=== PATIENT | male | born 1960 | race Hispanic/Latino ===

== ENCOUNTER 2017-05-13 03:03 | Inpatient (IN) | payer MEDICAID ==
[2017-05-13] MEDS ORDERED: Albuterol-Ipratrop 3 mg / 0.5 (3 ml) UD IH STA ×2 (03:41→04:31)
--- NOTE | 2017-05-13 03:45 | ED PDOC ---
Arrival/HPI - General Chief Complaint: Shortness Of Breath Time Seen by Provider: 05/13/17 03:04 Historian: Patient - History of Present Illness Narrative History of Present Illness (Text): 05/13/17 03:41 56 year old male, whose past medical history includes depression, CHF, COPD, CAD , pneumonia, and alcohol abuse, presents to the emergency department with complaints of worsening shortness of breath for the past couple of days. Patient admits to drinking alcohol. He states he has no money and is unable to take his medication in which he has many according to the patient. Patient denies any fever, chills, chest pain, nausea, vomiting, diarrhea, urinary symptoms, back pain, neck pain, headache, dizziness, or any other complaints. Time/Duration: Other (couple days ) Symptom Onset: Gradual Symptom Course: Unchanged Activities at Onset: Light Context: Home Past Medical History - Provider Review Nursing Documentation Reviewed: Yes - Infectious Disease Hx of Infectious Diseases: None - Cardiac Hx Congestive Heart Failure: Yes Hx Hypertension: Yes - Pulmonary Hx Chronic Obstructive Pulmonary Disease (COPD): Yes - Neurological Hx Seizures: No - HEENT Hx HEENT Disorder: No (wears glasses) - Renal Hx Renal Disorder: No - Endocrine/Metabolic Hx Endocrine Disorders: No - Hematological/Oncological Hx Blood Disorders: No - Integumentary Hx Dermatological Disorder: No - Musculoskeletal/Rheumatological Hx Falls: No - Gastrointestinal Hx Gastrointestinal Disorders: No - Genitourinary/Gynecological Hx Sexually Transmitted Diseases: No - Psychiatric Hx Psychophysiologic Disorder: No Hx Substance Use: Yes (A MONTH AGO MARIJUANA/COCAINE) - Surgical History Hx Coronary Stent: Yes (x4 on 01/01/2016) - Anesthesia Hx Anesthesia: Yes Hx Anesthesia Reactions: No Hx Malignant Hyperthermia: No - Suicidal Assessment Feels Threatened In Home Enviroment: No Family/Social History - Physician Review Nursing Documentation Reviewed: Yes Family/Social History: No Known Family HX Smoking Status: Former Smoker Hx Alcohol Use: Yes Hx Substance Use: Yes (A MONTH AGO MARIJUANA/COCAINE) Substance used: SMOKES MARIJUANA SEVERAL TIMES A WEEK Allergies/Home Meds Allergies/Adverse Reactions: Allergies No Known Allergies Allergy (Verified 05/13/17 03:06) Review of Systems - Physician Review All systems were reviewed & negative as marked: Yes - Review of Systems Constitutional: absent: Fevers, Other (Chills) Respiratory: SOB Cardiovascular: absent: Chest Pain Gastrointestinal: absent: Diarrhea, Nausea, Vomiting Genitourinary Male: absent: Dysuria, Frequency, Hematuria Musculoskeletal: absent: Back Pain, Neck Pain Neurological: absent: Headache, Dizziness Physical Exam Vital Signs Reviewed: Yes Vital Signs Temp Pulse Resp BP Pulse Ox 05/13/17 05:51 98.0 F 89 18 110/69 98 05/13/17 05:04 114/65 05/13/17 04:09 18 96 05/13/17 03:09 98.6 F 106 H 18 96/74 L 96 Temperature: Afebrile Blood Pressure: Normal Pulse: Tachycardic Respiratory Rate: Normal Appearance: Positive for: Well-Appearing, Non-Toxic, Comfortable, Other ( Inebriated) Pain Distress: None Mental Status: Positive for: Alert and Oriented X 3 - Systems Exam Head: Present: Atraumatic, Normocephalic Pupils: Present: PERRL Extroacular Muscles: Present: EOMI Conjunctiva: Present: Normal Mouth: Present: Moist Mucous Membranes Neck: Present: Normal Range of Motion Respiratory/Chest: Present: Decreased Breath Sounds (Bilaterally ). No: Respiratory Distress, Accessory Muscle Use Cardiovascular: Present: Regular Rate and Rhythm, Normal S1, S2. No: Murmurs Abdomen: Present: Normal Bowel Sounds. No: Tenderness, Distention, Peritoneal Signs Back: Present: Normal Inspection Upper Extremity: Present: Normal Inspection. No: Cyanosis, Edema Lower Extremity: Present: Normal Inspection. No: Edema Neurological: Present: GCS=15, CN II-XII Intact, Speech Normal Skin: Present: Warm, Dry, Normal Color. No: Rashes Psychiatric: Present: Alert, Oriented x 3, Normal Insight, Intoxicated ( Inebriated) Medical Decision Making ED Course and Treatment: 05/13/17 03:45 Impression: 56 year old male presents complaining of worsening shortness of breath for the past couple of days. Patient admits to drinking today. Plan: -- EKG -- Labs -- Chest X-ray -- Duoneb -- Reassess and disposition Progress Notes: 05/13/17 04:13 CXR Impression: As read by me, no acute process EKG shows tachycardia at 110 BPM with nonspecific t-wave changes. Interpreted by me. 05/13/17 04:31 Case discussed with Employment Clerk and Dr. Johnson who is aware and agrees with the plan. Accepts patient into his service. - Lab Interpretations Lab Results: 05/13/17 03:23 05/13/17 03:23 Lab Results 05/13/17 03:23: Alcohol, Quantitative 237 H 05/13/17 03:23: WBC 5.2, RBC 4.54, Hgb 14.5, Hct 41.5 L, MCV 91.4, MCH 31.9, MCHC 34.9, RDW 13.7, Plt Count 171, MPV 10.8 05/13/17 03:23: Sodium 146, Potassium 4.1, Chloride 109 H, Carbon Dioxide 23, Anion Gap 18, BUN 14, Creatinine 1.0, Est GFR ( Amer) > 60, Est GFR (Non- Af Amer) > 60, Random Glucose 129 H, Calcium 9.0, Total Bilirubin 0.3, AST 32, ALT 43, Alkaline Phosphatase 77, Lactate Dehydrogenase 567, Total Creatine Kinase 79, Troponin I 0.02, NT-Pro-B Natriuret Pep 735 H, Total Protein 7.5, Albumin 4.3, Globulin 3.2, Albumin/Globulin Ratio 1.3 05/13/17 03:23: PT 11.3, INR 0.99, APTT 33.6 I have reviewed the lab results: Yes - RAD Interpretation Radiology Orders: 05/13/17 03:40 CHEST PORTABLE [RAD] Stat - EKG Interpretation Interpreted by ED Physician: Yes Type: 12 lead EKG - Medication Orders Current Medication Orders: Apixaban (Eliquis) 5 mg PO BID TU PRN Reason: Protocol Atorvastatin Calcium (Lipitor) 20 mg PO DIN TU Carvedilol (Coreg) 6.25 mg PO BID TU Furosemide (Lasix) 20 mg IVP DAILY TU Levalbuterol HCl (Xopenex) 0.63 mg IH TIDRESP TU Levalbuterol HCl (Xopenex) 0.63 mg IH [id number] PRN PRN Reason: Shortness of Breath Lorazepam (Ativan) 2 mg IVP Q6H PRN; Protocol PRN Reason: Symptoms of alcohol withdrawl Losartan Potassium (Cozaar) 100 mg PO DAILY TU Nicotine (Nicoderm Cq) 1 patch TD DAILY TU Discontinued Medications Albuterol/Ipratropium (Duoneb 3 Mg/0.5 Mg (3 Ml) Ud) 3 ml IH ONCE STA Stop: 05/13/17 03:42 Last Admin: 05/13/17 03:52 Dose: 3 ml Albuterol/Ipratropium (Duoneb 3 Mg/0.5 Mg (3 Ml) Ud) 3 ml IH ONCE STA Stop: 05/13/17 04:32 Last Admin: 05/13/17 04:40 Dose: 3 ml Furosemide (Lasix) 20 mg IVP ONCE ONE Stop: 05/13/17 04:41 Last Admin: 05/13/17 05:04 Dose: 20 mg MAR Blood Pressure Document 05/13/17 05:04 IT (Rec: 05/13/17 05:08 IT [id number]) Blood Pressure Blood Pressure (100/60-150/90 mm Hg) 114/65 IVP Administration Document 05/13/17 05:04 IT (Rec: 05/13/17 05:08 IT [id number]) Charges for Administration # of IVP Administrations 1 - Scribe Statement The provider has reviewed the documentation as recorded by the Rico Lundy Provider Scribe Attestation: All medical record entries made by the Scribe were at my direction and personally dictated by me. I have reviewed the chart and agree that the record accurately reflects my personal performance of the history, physical exam, medical decision making, and the department course for this patient. I have also personally directed, reviewed, and agree with the discharge instructions and disposition. Disposition/Present on Arrival - Present on Arrival Any Indicators Present on Arrival: No History of DVT/PE: No History of Uncontrolled Diabetes: No Urinary Catheter: No History of Decub. Ulcer: No History Surgical Site Infection Following: None - Disposition Have Diagnosis and Disposition been Completed?: Yes Diagnosis: Alcohol intoxication, COPD (chronic obstructive pulmonary disease), CHF ( congestive heart failure) Disposition: HOSPITALIZED Disposition Time: 04:40 Patient Plan: Observation Patient Problems: Current Active Problems Problem Status Onset Alcohol intoxication Acute CHF (congestive heart failure) Acute COPD (chronic obstructive pulmonary disease) Acute Condition: STABLE
[2017-05-13 04:11] LABS: ALB/GLOB RATIO 1.3 (1.1-1.8); ALBUMIN 4.3 g/dL (3.0-4.8); ALT/SGPT 43 U/L (7-56); AST/SGOT 32 U/L (17-59); BLOOD UREA NITROGEN 14 mg/dL (7-21); GFR AFRICAN-AMERICAN > 60; GFR NON-AFRICAN AMERICAN > 60
[2017-05-13 04:16] LABS: HEMOGLOBIN 14.5 g/dL (14.0-18.0); MEAN CELL VOLUME 91.4 fl (80.0-105.0); MEAN CORPUSCULAR HEMOGLOBIN 31.9 pg (25.0-35.0); MEAN CORPUSCULAR HGB CONC 34.9 g/dl (31.0-37.0); MEAN PLATELET VOLUME 10.8 fl (7.0-11.0); RBC 4.54 10^6/uL (3.5-6.1); RED CELL DISTRIBUTION WIDTH 13.7 % (11.5-14.5); WHITE BLOOD COUNT 5.2 10^3/ul (4.5-11.0)
[2017-05-13 04:22] LABS: B-TYPE NATRIURETIC PEPTIDE 735 pg/mL (0-450); TROPONIN I 0.02 ng/mL
[2017-05-13 04:29] LABS: INR 0.99 (0.93-1.08); PARTIAL THROMBOPLASTIN TIME 33.6 Seconds (25.1-36.5); PROTHROMBIN TIME 11.3 SECONDS (9.4-12.5)
[2017-05-13] MEDS ORDERED: Levalbuterol 0.63 MG/3 ML Inhal Soln UD IH PRN (05:16)
--- NOTE | 2017-05-13 05:25 | CP.PCM.HP ---
<Camron Gillette - Last Filed: 05/13/17 06:02> History of Present Illness - History of Present Illness History of Present Illness: Camron Gillette PGY1 H&P Note for Hospitalist Service cc: shortness of breath x5 days Mr. Weiss is a 56 year old male with PMHx CAD s/p 4 stents, AR x2, CHF, HTN, CHRIS, HLD, COPD, tobacco and alcohol abuse who presented to ED with shortness of breath x5 days, worsened with exertion. The patient states that he recently lost his insurance and has been unable to take his medications regularly including his Lasix. He states that he left the [place] [facility] he [facility] in and is now located in [facility]. He states he drinks 3-4x24oz beers daily, and his last drink was earlier today. 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 He states that he has some medications at home, including his Eliquis, but that he doesn't take them regularly because if he did, he would run out and would not be able to buy new meds. He denies fevers/chills, chest pain, cough, abdominal pain, leg swelling, or changes in his urinary/bowel habits. 12-pt ROS was reviewed and is otherwise unremarkable. Prior chart review revealed: Echo 03/01/17: Severe systolic dysfunction with LVEF 35%, LV dilation, global hypokinesis of LV, apical thrombus, and mild-moderate pulmonary hypertension ICD placed on 08/29/16 at [facility] and interrogated on 03/05/17 Company Name: [employer] Serial Number: [id number] Lead Model: [id number] [employer] Phone Number Labs from 03/01/17 Hemoglobin A1C 6.4 TG 103 LDL 77 HDL 40 TSH 1.93 PMHx: as above PSHx: stents x4 (2016), AICD (last interrogated 03/05/17) Allergies: denies FamHx: mother and 2 brothers both of stroke; father of either AR or CVA; ETOH in both sides of family Social: homeless, lives in [facility]. + tobacco 1ppd for many years. Consumes 3-4 x 24 ounce bottles of beer daily. Former marijuana and cocaine user , denies current use. PMD: Stephanie Ley [facility] Home meds: As per MAR Present on Admission - Present on Admission Any Indicators Present on Admission: No Review of Systems - Review of Systems All systems: reviewed and no additional remarkable complaints except (as per HPI ) Past Patient History - Infectious Disease Hx of Infectious Diseases: None - Past Medical History & Family History Past Medical History?: Yes - Past Social History Smoking Status: Heavy Smoker > 10 Cigarettes Daily Alcohol: Occasional - CARDIAC Hx Congestive Heart Failure: Yes (w/ AICD) Hx Hypercholesterolemia: Yes Hx Hypertension: Yes Hx Internal Defibrillator: Yes - PULMONARY Hx Chronic Obstructive Pulmonary Disease (COPD): Yes - NEUROLOGICAL Hx Seizures: No - HEENT Hx HEENT Problems: No (wears glasses) - RENAL Hx Chronic Kidney Disease: No - ENDOCRINE/METABOLIC Hx Endocrine Disorders: No - HEMATOLOGICAL/ONCOLOGICAL Hx Blood Disorders: No - INTEGUMENTARY Hx Dermatological Problems: No - MUSCULOSKELETAL/RHEUMATOLOGICAL Hx Falls: No - GASTROINTESTINAL Hx Gastrointestinal Disorders: No - GENITOURINARY/GYNECOLOGICAL Hx Sexually Transmitted Disorders: No - PSYCHIATRIC Hx Psychophysiologic Disorder: No Hx Substance Use: Yes (A MONTH AGO MARIJUANA/COCAINE) - SURGICAL HISTORY Hx Angioplasty: Yes Hx Coronary Stent: Yes (x4 on 01/01/2016) - ANESTHESIA Hx Anesthesia: Yes Hx Anesthesia Reactions: No Hx Malignant Hyperthermia: No Meds Allergies/Adverse Reactions: Allergies Allergy/AdvReac Type Severity Reaction Status Date / Time No Known Allergies Allergy Verified 05/13/17 03:06 Physical Exam - Constitutional Appears: Well, Non-toxic, No Acute Distress - Head Exam Head Exam: ATRAUMATIC, NORMAL INSPECTION - Eye Exam Eye Exam: EOMI, Normal appearance, PERRL - ENT Exam ENT Exam: Mucous Membranes Moist - Neck Exam Neck exam: Positive for: Normal Inspection - Respiratory Exam Respiratory Exam: Rales (mild bibasilar), NORMAL BREATHING PATTERN. absent: Decreased Breath Sounds, Rhonchi, Wheezes, Respiratory Distress - Cardiovascular Exam Cardiovascular Exam: Tachycardia, +S1, +S2 - GI/Abdominal Exam GI & Abdominal Exam: Normal Bowel Sounds, Soft. absent: Distended, Tenderness - Extremities Exam Extremities exam: Positive for: normal inspection. Negative for: pedal edema - Back Exam Back exam: NORMAL INSPECTION - Neurological Exam Neurological exam: Alert, Oriented x3 - Psychiatric Exam Psychiatric exam: Normal Affect, Normal Mood - Skin Skin Exam: Normal Color, Warm Results - Vital Signs Recent Vital Signs: Last Vital Signs Temp 98.6 F 05/13/17 03:09 Pulse 106 H 05/13/17 03:09 Resp 18 05/13/17 04:09 BP 114/65 05/13/17 05:04 Pulse Ox 96 05/13/17 04:09 - Labs Result Diagrams: 05/13/17 03:23 05/13/17 03:23 Labs: Laboratory Results - last 24 hr 05/13/17 05/13/17 05/13/17 03:23 03:23 03:23 WBC 5.2 RBC 4.54 Hgb 14.5 Hct 41.5 L MCV 91.4 MCH 31.9 MCHC 34.9 RDW 13.7 Plt Count 171 MPV 10.8 PT 11.3 INR 0.99 APTT 33.6 Sodium 146 Potassium 4.1 Chloride 109 H Carbon Dioxide 23 Anion Gap 18 BUN 14 Creatinine 1.0 Est GFR ( Amer) > 60 Est GFR (Non-Af Amer) > 60 Random Glucose 129 H Calcium 9.0 Total Bilirubin 0.3 AST 32 ALT 43 Alkaline Phosphatase 77 Lactate Dehydrogenase 567 Total Creatine Kinase 79 Troponin I 0.02 NT-Pro-B Natriuret Pep 735 H Total Protein 7.5 Albumin 4.3 Globulin 3.2 Albumin/Globulin Ratio 1.3 Alcohol, Quantitative 05/13/17 03:23 WBC RBC Hgb Hct MCV MCH MCHC RDW Plt Count MPV PT INR APTT Sodium Potassium Chloride Carbon Dioxide Anion Gap BUN Creatinine Est GFR ( Amer) Est GFR (Non-Af Amer) Random Glucose Calcium Total Bilirubin AST ALT Alkaline Phosphatase Lactate Dehydrogenase Total Creatine Kinase Troponin I NT-Pro-B Natriuret Pep Total Protein Albumin Globulin Albumin/Globulin Ratio Alcohol, Quantitative 237 H Assessment & Plan - Assessment and Plan (Free Text) Assessment: 56 year old male with PMHx CAD s/p 4 stents, AR x2, CHF, HTN, CHRIS, HLD, COPD, tobacco and alcohol abuse who presented to ED with shortness of breath on exertion x5 days. He is also intoxicated. Plan: 1. SOB likely 2/2 CHF exacerbation - LVEF from 02/2017 is 35% - patient has AICD; denies feeling it go off - CXR reveals vascular congestion L>R as read by me - breathing improved with Lasix and breathing treatments given in ED - EKG in ED showed tachycardia at 110 BPM with L atrial enlargement and nonspecific t-wave changes - will order follow up troponin and EKG in AM - continue Lasix 20mg IVP daily - cont Xopenex TU and PRN - O2 PRN - monitor for signs of respiratory distress - no signs of infection at this time - cause is likely medication non-compliance; social work eval placed 2. ETOH intoxication - CIWA protocol - Banana bag @ 60 - Ativan PRN - fall risk medium 3. Hx CAD w/ stents - patient is on Eliquis for apical thrombus - cont ASA 81mg daily - patient on Losartan and Coreg; will cont - cont Lipitor - monitor for changes in BP - A1C, TSH and Lipid panel all noted from recent prior visit in HPI above 4. Hx COPD - Xopenex PRN - no wheezing or cough noted at this time - continue to monitor for signs of resp distress 5. Hx HTN - cont Losartan and Coreg 6. Hx Tobacco use - nicotine patch - advised patient on benefits of cessation PTX/Eliquis and SCDs HHD Patient was seen, examined and discussed with attending, Dr. Elizabeth Gillette PGY1 <Saurabh Johnson - Last Filed: 05/13/17 19:27> Results - Vital Signs Recent Vital Signs: Last Vital Signs Temp 98.2 F 05/13/17 16:00 Pulse 86 05/13/17 18:57 Resp 20 05/13/17 16:00 BP 118/79 05/13/17 18:57 Pulse Ox 95 05/13/17 16:00 - Labs Result Diagrams: 05/13/17 03:23 05/13/17 03:23 Labs: Laboratory Results - last 24 hr 05/13/17 05/13/17 10:10 14:20 Lactate Dehydrogenase 519 Total Creatine Kinase 69 Troponin I 0.01 D Urine Opiates Screen Negative Urine Methadone Screen Negative Ur Barbiturates Screen Negative Ur Phencyclidine Scrn Negative Ur Amphetamines Screen Negative U Benzodiazepines Scrn Negative U Oth Cocaine Metabols Negative U Cannabinoids Screen Negative Attending/Attestation - Attestation I have personally seen and examined this patient.: Yes I have fully participated in the care of the patient.: Yes I have reviewed all pertinent clinical information: Yes Notes (Text): 05/13/17 19:27 Patient was seen when he was in bed # 364-02 this morning. Agree with history, physical examination, assessment and plan.
[2017-05-13 06:35] VITALS: BMI 30.8
[2017-05-13] MEDS ORDERED: Pneumococcal 23-Valent Vaccine IM ONE (06:35)
[2017-05-13] MEDS ORDERED: Influenza Vaccine 60 mcg/0.5 mL SYR (4YR UP) IM ONE (06:35)
[2017-05-13] MEDS: Levalbuterol 0.63 MG/3 ML Inhal Soln UD IH SCH ×3 (08:03→19:40)
--- NOTE | 2017-05-13 08:35 | RAD ---
HISTORY: sob COMPARISON: No prior. FINDINGS: A unipolar permanent cardiac pacemaker/AICD is identified placed with the generator the left chest and solitary lead entering into the heart via a left subclavian approach. LUNGS: No acute infiltrate bilaterally. PLEURA: No significant pleural effusion identified, no pneumothorax apparent. CARDIOVASCULAR: Cardiac silhouette appears prominent. Frontal technique magnifies true size though cardiomegaly is not completely excluded. No definite pulmonary vascular derangement appreciable. OSSEOUS STRUCTURES: No significant abnormalities. VISUALIZED UPPER ABDOMEN: Normal. OTHER FINDINGS: None. IMPRESSION: Likely cardiomegaly. No active pulmonary venous congestion. No infiltrate or pleural effusion bilaterally.
[2017-05-13] MEDS: Multivitamin With Minerals Tab PO SCH (09:51)
[2017-05-13] MEDS: Pantoprazole 40 mg EC Tab PO SCH (09:51)
[2017-05-13 10:40] LABS: TROPONIN I 0.01 ng/mL
[2017-05-13 16:54] LABS: BARBITURATES, UR NEGATIVE (NEGATIVE); BENZODIAZEPINES, UR NEGATIVE (NEGATIVE); OPIATES, UR NEGATIVE (NEGATIVE); PHENCYCLIDINE, UR NEGATIVE (NEGATIVE)
--- NOTE | 2017-05-13 23:32 | CARD ---
APPROVED REPORT EKG Measurement Heart [id number] <Conclusion> Sinus tachycardia Left atrial enlargement Nonspecific T wave abnormality Abnormal ECG
[2017-05-14] MEDS: Pantoprazole 40 mg EC Tab PO SCH (05:02)
[2017-05-14 06:45] LABS: HEMOGLOBIN 15.4 g/dL (14.0-18.0); MEAN CELL VOLUME 92.7 fl (80.0-105.0); MEAN CORPUSCULAR HEMOGLOBIN 32.1 pg (25.0-35.0); MEAN CORPUSCULAR HGB CONC 34.6 g/dl (31.0-37.0); MEAN PLATELET VOLUME 11.4 fl (7.0-11.0); RBC 4.8 10^6/uL (3.5-6.1); RED CELL DISTRIBUTION WIDTH 13.8 % (11.5-14.5); WHITE BLOOD COUNT 10.5 10^3/ul (4.5-11.0)
[2017-05-14 07:25] LABS: ALB/GLOB RATIO 1.3 (1.1-1.8); ALBUMIN 4.2 g/dL (3.0-4.8); ALT/SGPT 49 U/L (7-56); AST/SGOT 33 U/L (17-59); BLOOD UREA NITROGEN 21 mg/dL (7-21); CALCIUM 9.9 mg/dL (8.4-10.5); GFR AFRICAN-AMERICAN > 60; GFR NON-AFRICAN AMERICAN > 60
[2017-05-14] MEDS: Levalbuterol 0.63 MG/3 ML Inhal Soln UD IH SCH ×3 (07:35→20:14)
[2017-05-14] MEDS: Multivitamin With Minerals Tab PO SCH (08:56)
--- NOTE | 2017-05-14 15:23 | CP.PCM.PN ---
<Michael Abad - Last Filed: 05/14/17 14:49> Subjective - Date & Time of Evaluation Date of Evaluation: 05/14/17 Time of Evaluation: 14:49 - Subjective Subjective: Medicine Progress Note: Patient seen and assessed at bedside. No acute events overnight reported by patient or nursing staff. He denies any fevers, chills, headache, chest pain, SOB, abdominal pain, N/V/D/C, urinary changes, skin changes or any numbness/ tingling/weakness of any extremity. Objective - Vital Signs/Intake and Output Vital Signs (last 24 hours): Temp Pulse Resp BP Pulse Ox 97.7 F 88 19 117/79 97 05/14/17 07:49 05/14/17 10:19 05/14/17 07:49 05/14/17 10:20 05/14/17 07:49 - Medications Medications: Current Medications Apixaban (Eliquis) 5 mg PO BID [facility] PRN Reason: Protocol Last Admin: 05/14/17 10:20 Dose: 5 mg Aspirin (Ecotrin) 81 mg PO DAILY [facility] Last Admin: 05/14/17 10:20 Dose: 81 mg Atorvastatin Calcium (Lipitor) 20 mg PO DIN [facility] Last Admin: 05/13/17 18:57 Dose: 20 mg Carvedilol (Coreg) 6.25 mg PO BID [facility] Last Admin: 05/14/17 10:19 Dose: 6.25 mg Chlordiazepoxide (Librium) 25 mg PO Q8 [facility]U PRN Reason: Protocol Folic Acid (Folic Acid) 1 mg PO DAILY [facility] Last Admin: 05/14/17 10:20 Dose: 1 mg Furosemide (Lasix) 40 mg PO DAILY [facility] Last Admin: 05/14/17 10:20 Dose: 40 mg Levalbuterol HCl (Xopenex) 0.63 mg IH TIDRESP [facility] Last Admin: 05/14/17 13:28 Dose: 0.63 mg Levalbuterol HCl (Xopenex) 0.63 mg IH [id number] PRN PRN Reason: Shortness of Breath Lorazepam (Ativan) 2 mg IVP Q6H PRN; Protocol PRN Reason: Symptoms of alcohol withdrawl Last Admin: 05/13/17 19:00 Dose: 2 mg Losartan Potassium (Cozaar) 100 mg PO DAILY [facility] Last Admin: 05/14/17 10:19 Dose: 100 mg Multivitamins/Minerals (Therapeutic-M Tab) 1 tab PO 0800 [facility] Last Admin: 05/14/17 08:56 Dose: 1 tab Nicotine (Nicoderm Cq) 1 patch TD DAILY [facility] Last Admin: 05/14/17 10:20 Dose: 1 patch Pantoprazole Sodium (Protonix Ec Tab) 40 mg PO 0600 [facility] Last Admin: 05/14/17 05:02 Dose: 40 mg Thiamine HCl (Vitamin B1 Tab) 100 mg PO DAILY [facility] Last Admin: 05/14/17 10:20 Dose: 100 mg - Labs Labs: PT 11.3 SECONDS (9.4-12.5) 05/13/17 03:23 INR 0.99 (0.93-1.08) 05/13/17 03:23 APTT 33.6 Seconds (25.1-36.5) 05/13/17 03:23 - Constitutional Appears: Non-toxic, No Acute Distress - Head Exam Head Exam: ATRAUMATIC, NORMOCEPHALIC - Eye Exam Eye Exam: EOMI, Normal appearance Pupil Exam: NORMAL ACCOMODATION, PERRL - ENT Exam ENT Exam: Mucous Membranes Moist, Normal Exam - Neck Exam Neck Exam: Full ROM, Normal Inspection. absent: Lymphadenopathy, Tenderness - Respiratory Exam Respiratory Exam: Clear to Ausculation Bilateral, NORMAL BREATHING PATTERN. absent: Accessory Muscle Use, Rales, Rhonchi, Wheezes, Respiratory Distress - Cardiovascular Exam Cardiovascular Exam: REGULAR RHYTHM, RRR, +S1, +S2. absent: Bradycardia, Tachycardia, Clicks, Diastolic murmur, Gallop, Irregular Rhythm, JVD, Rubs, +S4 , Murmur - GI/Abdominal Exam GI & Abdominal Exam: Soft, Normal Bowel Sounds. absent: Distended, Firm, Guarding, Rigid, Tenderness, Rebound - Extremities Exam Extremities Exam: Full ROM, Normal Capillary Refill, Normal Inspection. absent : Calf Tenderness, Joint Swelling, Pedal Edema, Tenderness - Back Exam Back Exam: NORMAL INSPECTION - Neurological Exam Neurological Exam: Alert, Awake, CN II-XII Intact, Normal Gait, Oriented x3 - Psychiatric Exam Psychiatric exam: Normal Affect, Normal Mood - Skin Skin Exam: Dry, Intact, Normal Color, Warm Assessment and Plan - Assessment and Plan (Free Text) Assessment: 56 year old male with a past medical history significant for CAD s/p four ASHANTI, two past TX's, CHF, HTN, CHRIS, HLD, COPD, tobacco and alcohol abuse who presented with HORTA and alcohol intoxication. Plan: 1. Dyspnea on Exertion -Chest X-ray showed cardiomegaly and no active PVC, infiltrates or pleural effusions bilaterally -EKG showed sinus tachycardia at 110 beats/min with LAE and nonspecific t-wave changes -Echocardiogram from 03/09 showed an LVEF of 35% and severe systolic dysfunction -BNP mildly elevated at 735 -Two serial troponins negative -Xopenex TIDRESP and Q4 PRN -Lasix 40mg PO daily -Supplemental oxygen via NC at 2 L/min 2. Alcohol Withdrawal -Serum Alcohol on admission: 237 -Librium 25mg PO Q8 -Ativan 2mg IVP Q6H PRN -PO Folic acid, thiamine and MV supplementation -CIWA assessments Q4H -Fall protocols -Cessation advised 3. History of CHF -Echocardiogram from 03/09 reviewed -Chest X-Ray on admission reviewed -Cozaar, Coreg and Lasix 4. History of CAD s/p four ASHANTI and Apical Thrombus -EKG from admission reviewed -ASA 81mg, Cozaar, Lipitor and Coreg -Continue Eliquis 5mg PO BID 5. History of COPD -Xopenex TIDRESP and Q4 PRN -Supplemental oxygen via NC at 2 L/min 6. History of HTN -Continue Cozaar and Coreg 7. History of HLD -Continue Lipitor 8. History of Tobacco Use -Continue Nicoderm CQ -Cessation advised GI Prophylaxis: Protonix DVT Prophylaxis: Eliquis and SCD's Patient seen and case discussed with attending, Dr. Diaz. <Leah Diaz - Last Filed: 05/14/17 17:44> Objective - Vital Signs/Intake and Output Vital Signs (last 24 hours): Temp Pulse Resp BP Pulse Ox 97.9 F 79 20 115/82 97 05/14/17 14:00 05/14/17 14:00 05/14/17 14:00 05/14/17 14:00 05/14/17 14:00 - Medications Medications: Current Medications Apixaban (Eliquis) 5 mg PO BID [facility]U PRN Reason: Protocol Last Admin: 05/14/17 10:20 Dose: 5 mg Aspirin (Ecotrin) 81 mg PO DAILY [facility] Last Admin: 05/14/17 10:20 Dose: 81 mg Atorvastatin Calcium (Lipitor) 20 mg PO DIN [facility] Last Admin: 05/13/17 18:57 Dose: 20 mg Carvedilol (Coreg) 6.25 mg PO BID [facility] Last Admin: 05/14/17 10:19 Dose: 6.25 mg Chlordiazepoxide (Librium) 25 mg PO Q8 TU PRN Reason: Protocol Last Admin: 05/14/17 14:55 Dose: 25 mg Folic Acid (Folic Acid) 1 mg PO DAILY [facility] Last Admin: 05/14/17 10:20 Dose: 1 mg Furosemide (Lasix) 40 mg PO DAILY [facility] Last Admin: 05/14/17 10:20 Dose: 40 mg Levalbuterol HCl (Xopenex) 0.63 mg IH TIDRESP [facility] Last Admin: 05/14/17 13:28 Dose: 0.63 mg Levalbuterol HCl (Xopenex) 0.63 mg IH [id number] PRN PRN Reason: Shortness of Breath Lorazepam (Ativan) 2 mg IVP Q6H PRN; Protocol PRN Reason: Symptoms of alcohol withdrawl Last Admin: 05/13/17 19:00 Dose: 2 mg Losartan Potassium (Cozaar) 100 mg PO DAILY [facility] Last Admin: 05/14/17 10:19 Dose: 100 mg Multivitamins/Minerals (Therapeutic-M Tab) 1 tab PO 0800 [facility] Last Admin: 05/14/17 08:56 Dose: 1 tab Nicotine (Nicoderm Cq) 1 patch TD DAILY [facility] Last Admin: 05/14/17 10:20 Dose: 1 patch Pantoprazole Sodium (Protonix Ec Tab) 40 mg PO 0600 [facility] Last Admin: 05/14/17 05:02 Dose: 40 mg Thiamine HCl (Vitamin B1 Tab) 100 mg PO DAILY [facility] Last Admin: 05/14/17 10:20 Dose: 100 mg - Labs Labs: PT 11.3 SECONDS (9.4-12.5) 05/13/17 03:23 INR 0.99 (0.93-1.08) 05/13/17 03:23 APTT 33.6 Seconds (25.1-36.5) 05/13/17 03:23 Attending/Attestation - Attestation I have personally seen and examined this patient.: Yes I have fully participated in the care of the patient.: Yes I have reviewed all pertinent clinical information, including history, physical exam and plan: Yes Notes (Text): 05/14/17 17:41 attending note; Patient seen and examined with resident. Patient is a 56 year old male with a past medical history significant for CAD s/ p four ASHANTI, hypertension, hyperlipidemia , COPD, tobacco and alcohol abuse who presented with shortness of breath and alcohol intoxication. patient said he lost his insurance recently. Not taking any medications as prescribed. Alcohol intoxication; complete alcohol cessation is strongly advised. Continue CIWA protocol. Ativan when necessary ordered. continue Librium. COPD; continue DuoNeb treatment. Stable respiratory status. History of CHF; continue Lasix. coronary artery disease; continue aspirin, beta adelso, Cozaar, Lipitor. History of apical thrombus; continue Eliquis. 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 patient has already applied for Medicaid. Possible discharge home tomorrow. upon discharge The patient will be [place] [facility] [place]
[2017-05-15] MEDS: Pantoprazole 40 mg EC Tab PO SCH (05:50)
[2017-05-15 06:35] LABS: HEMOGLOBIN 15.1 g/dL (14.0-18.0); MEAN CELL VOLUME 92.9 fl (80.0-105.0); MEAN CORPUSCULAR HEMOGLOBIN 31.7 pg (25.0-35.0); MEAN CORPUSCULAR HGB CONC 34.2 g/dl (31.0-37.0); RBC 4.76 10^6/uL (3.5-6.1); RED CELL DISTRIBUTION WIDTH 13.8 % (11.5-14.5); WHITE BLOOD COUNT 10.1 10^3/ul (4.5-11.0)
[2017-05-15 06:49] LABS: ALB/GLOB RATIO 1.3 (1.1-1.8); ALBUMIN 4.1 g/dL (3.0-4.8); ALT/SGPT 40 U/L (7-56); AST/SGOT 28 U/L (17-59); BLOOD UREA NITROGEN 22 mg/dL (7-21); GFR AFRICAN-AMERICAN > 60; GFR NON-AFRICAN AMERICAN > 60
[2017-05-15] MEDS: Levalbuterol 0.63 MG/3 ML Inhal Soln UD IH SCH ×3 (07:42→20:04)
[2017-05-15] MEDS: Multivitamin With Minerals Tab PO SCH (09:10)
--- NOTE | 2017-05-15 13:31 | CP.PCM.PN ---
<Michael Abda - Last Filed: 05/15/17 13:28> Subjective - Date & Time of Evaluation Date of Evaluation: 05/15/17 Time of Evaluation: 13:28 - Subjective Subjective: Medicine Progress Note: Patient seen and assessed at bedside. Patient had six beats of ventricular tachycardia overnight with immediate conversion to NSR afterwards. Patient was asymptomatic and had stable vital signs so no acute intervention was necessary. He denies any fevers, chills, headache, chest pain, SOB, abdominal pain, N/V/D/ C, urinary changes, skin changes or any numbness/tingling/weakness of any extremity. Objective - Vital Signs/Intake and Output Vital Signs (last 24 hours): Temp Pulse Resp BP Pulse Ox 97.4 F L 76 20 113/79 96 05/15/17 08:08 05/15/17 10:00 05/15/17 08:08 05/15/17 09:11 05/15/17 08:08 - Medications Medications: Current Medications Apixaban (Eliquis) 5 mg PO BID [facility] PRN Reason: Protocol Last Admin: 05/15/17 09:10 Dose: 5 mg Aspirin (Ecotrin) 81 mg PO DAILY [facility] Last Admin: 05/15/17 09:10 Dose: 81 mg Atorvastatin Calcium (Lipitor) 20 mg PO DIN [facility] Last Admin: 05/14/17 17:56 Dose: 20 mg Carvedilol (Coreg) 6.25 mg PO BID [facility] Last Admin: 05/15/17 09:10 Dose: 6.25 mg Chlordiazepoxide (Librium) 10 mg PO Q8 [facility] PRN Reason: Protocol Folic Acid (Folic Acid) 1 mg PO DAILY [facility] Last Admin: 05/15/17 09:10 Dose: 1 mg Furosemide (Lasix) 40 mg PO DAILY [facility] Last Admin: 05/15/17 09:11 Dose: 40 mg Levalbuterol HCl (Xopenex) 0.63 mg IH TIDRESP [facility] Last Admin: 05/15/17 13:24 Dose: 0.63 mg Levalbuterol HCl (Xopenex) 0.63 mg IH [id number] PRN PRN Reason: Shortness of Breath Lorazepam (Ativan) 2 mg IVP Q6H PRN; Protocol PRN Reason: Symptoms of alcohol withdrawl Last Admin: 05/13/17 19:00 Dose: 2 mg Losartan Potassium (Cozaar) 100 mg PO DAILY [facility] Last Admin: 05/15/17 09:10 Dose: 100 mg Multivitamins/Minerals (Therapeutic-M Tab) 1 tab PO 0800 [facility] Last Admin: 05/15/17 09:10 Dose: 1 tab Nicotine (Nicoderm Cq) 1 patch TD DAILY [facility] Last Admin: 05/15/17 09:10 Dose: 1 patch Pantoprazole Sodium (Protonix Ec Tab) 40 mg PO 0600 [facility] Last Admin: 05/15/17 05:50 Dose: 40 mg Thiamine HCl (Vitamin B1 Tab) 100 mg PO DAILY [facility] Last Admin: 05/15/17 09:10 Dose: 100 mg - Labs Labs: 05/15/17 05:30 05/15/17 05:30 PT 11.3 SECONDS (9.4-12.5) 05/13/17 03:23 INR 0.99 (0.93-1.08) 05/13/17 03:23 APTT 33.6 Seconds (25.1-36.5) 05/13/17 03:23 - Constitutional Appears: Non-toxic, No Acute Distress - Head Exam Head Exam: ATRAUMATIC, NORMOCEPHALIC - Eye Exam Eye Exam: EOMI, Normal appearance Pupil Exam: NORMAL ACCOMODATION, PERRL - ENT Exam ENT Exam: Mucous Membranes Moist, Normal Exam - Neck Exam Neck Exam: Full ROM, Normal Inspection. absent: Lymphadenopathy, Tenderness - Respiratory Exam Respiratory Exam: Clear to Ausculation Bilateral, NORMAL BREATHING PATTERN. absent: Accessory Muscle Use, Rales, Rhonchi, Wheezes, Respiratory Distress - Cardiovascular Exam Cardiovascular Exam: REGULAR RHYTHM, RRR, +S1, +S2. absent: Bradycardia, Tachycardia, Clicks, Diastolic murmur, Gallop, Irregular Rhythm, JVD, Rubs, +S4 , Murmur - GI/Abdominal Exam GI & Abdominal Exam: Soft, Normal Bowel Sounds. absent: Distended, Firm, Guarding, Rigid, Tenderness, Rebound - Extremities Exam Extremities Exam: Full ROM, Normal Capillary Refill, Normal Inspection. absent : Calf Tenderness, Joint Swelling, Pedal Edema, Tenderness - Back Exam Back Exam: NORMAL INSPECTION - Neurological Exam Neurological Exam: Alert, Awake, CN II-XII Intact, Normal Gait, Oriented x3 - Psychiatric Exam Psychiatric exam: Normal Affect, Normal Mood - Skin Skin Exam: Dry, Intact, Normal Color, Warm Assessment and Plan - Assessment and Plan (Free Text) Assessment: 56 year old male with a past medical history significant for CAD s/p four ASHANTI, two past NC's, CHF, HTN, CHRIS, HLD, COPD, tobacco and alcohol abuse who presented with HORTA and alcohol intoxication. Plan: 1. Dyspnea on Exertion -Chest X-ray showed cardiomegaly and no active PVC, infiltrates or pleural effusions bilaterally -EKG showed sinus tachycardia at 110 beats/min with LAE and nonspecific t-wave changes -Echocardiogram from 03/09 showed an LVEF of 35% and severe systolic dysfunction -BNP mildly elevated at 735 -Two serial troponins negative -Xopenex TIDRESP and Q4 PRN -Lasix 40mg PO daily -Supplemental oxygen via NC at 2 L/min -Remote Telemetry monitoring 2. Alcohol Withdrawal -Serum Alcohol on admission: 237 -Librium tapered to 10mg PO Q8 -Ativan 2mg IVP Q6H PRN -PO Folic acid, thiamine and MV supplementation -CIWA assessments Q4H -Fall protocols -Cessation advised 3. History of CHF -Echocardiogram from 03/09 reviewed -Chest X-Ray on admission reviewed -Cozaar, Coreg and Lasix 4. History of CAD s/p four ASHANTI and Apical Thrombus -EKG from admission reviewed -ASA 81mg, Cozaar, Lipitor and Coreg -Continue Eliquis 5mg PO BID 5. History of COPD -Xopenex TIDRESP and Q4 PRN -Supplemental oxygen via NC at 2 L/min 6. History of HTN -Continue Cozaar and Coreg 7. History of HLD -Continue Lipitor 8. History of Tobacco Use -Continue Nicoderm CQ -Cessation advised GI Prophylaxis: Protonix DVT Prophylaxis: Eliquis and SCD's Patient seen and case discussed with attending, Dr. Louis Peoples. <Louis Peoples - Last Filed: 05/15/17 17:41> Objective - Vital Signs/Intake and Output Vital Signs (last 24 hours): Temp Pulse Resp BP Pulse Ox 97.4 F L 77 20 120/75 96 05/15/17 08:08 05/15/17 17:27 05/15/17 08:08 05/15/17 17:27 05/15/17 08:08 Intake and Output: 05/15/17 05/15/17 06:59 18:59 Intake Total 540 Balance 540 - Medications Medications: Current Medications Apixaban (Eliquis) 5 mg PO BID [facility] PRN Reason: Protocol Last Admin: 05/15/17 17:27 Dose: 5 mg Aspirin (Ecotrin) 81 mg PO DAILY [facility] Last Admin: 05/15/17 09:10 Dose: 81 mg Atorvastatin Calcium (Lipitor) 20 mg PO DIN [facility] Last Admin: 05/15/17 17:27 Dose: 20 mg Carvedilol (Coreg) 6.25 mg PO BID [facility] Last Admin: 05/15/17 17:27 Dose: 6.25 mg Chlordiazepoxide (Librium) 10 mg PO Q8 [facility] PRN Reason: Protocol Last Admin: 05/15/17 13:43 Dose: 10 mg Folic Acid (Folic Acid) 1 mg PO DAILY [facility] Last Admin: 05/15/17 09:10 Dose: 1 mg Furosemide (Lasix) 40 mg PO DAILY [facility] Last Admin: 05/15/17 09:11 Dose: 40 mg Levalbuterol HCl (Xopenex) 0.63 mg IH TIDRESP [facility] Last Admin: 05/15/17 13:24 Dose: 0.63 mg Levalbuterol HCl (Xopenex) 0.63 mg IH [id number] PRN PRN Reason: Shortness of Breath Lorazepam (Ativan) 2 mg IVP Q6H PRN; Protocol PRN Reason: Symptoms of alcohol withdrawl Last Admin: 05/13/17 19:00 Dose: 2 mg Losartan Potassium (Cozaar) 100 mg PO DAILY [facility] Last Admin: 05/15/17 09:10 Dose: 100 mg Multivitamins/Minerals (Therapeutic-M Tab) 1 tab PO 0800 [facility] Last Admin: 05/15/17 09:10 Dose: 1 tab Nicotine (Nicoderm Cq) 1 patch TD DAILY [facility] Last Admin: 05/15/17 09:10 Dose: 1 patch Pantoprazole Sodium (Protonix Ec Tab) 40 mg PO 0600 [facility] Last Admin: 05/15/17 05:50 Dose: 40 mg Thiamine HCl (Vitamin B1 Tab) 100 mg PO DAILY [facility] Last Admin: 05/15/17 09:10 Dose: 100 mg - Labs Labs: 05/15/17 05:30 05/15/17 05:30 PT 11.3 SECONDS (9.4-12.5) 05/13/17 03:23 INR 0.99 (0.93-1.08) 05/13/17 03:23 APTT 33.6 Seconds (25.1-36.5) 05/13/17 03:23 Attending/Attestation - Attestation I have personally seen and examined this patient.: Yes I have fully participated in the care of the patient.: Yes I have reviewed all pertinent clinical information, including history, physical exam and plan: Yes Notes (Text): I have seen and examined patient with the resident. Agree with the above note with the following additions/ exceptions: Briefly this is 56 year old male with a past medical history significant for CAD s/p four ASHANTI, hypertension, hyperlipidemia , COPD, tobacco and alcohol abuse who presented with shortness of breath and alcohol intoxication. He was non compliant with his medications due to loss of insurance. He had 6 beats of asymptomatic VTach. Electrolytes were normal. Continue tele monitoring. Check electrolyes daily. Continue librium taper for alcohol withdrawal. Continue aspirin, cozaar, lipitor and lasix. Counselling provided regarding alcohol use. Continue eliquis for apical thrombus. Upon discharge patient will follow up with [facility] clinic. Dr Louis Peoples
[2017-05-15 18:14] VITALS: RESP 18; O2SAT 100
[2017-05-16] MEDS: Pantoprazole 40 mg EC Tab PO SCH (05:34)
[2017-05-16 06:28] LABS: HEMOGLOBIN 14.9 g/dL (14.0-18.0); MEAN CELL VOLUME 93.2 fl (80.0-105.0); MEAN CORPUSCULAR HEMOGLOBIN 31.5 pg (25.0-35.0); MEAN CORPUSCULAR HGB CONC 33.8 g/dl (31.0-37.0); MEAN PLATELET VOLUME 11.2 fl (7.0-11.0); RBC 4.73 10^6/uL (3.5-6.1); RED CELL DISTRIBUTION WIDTH 13.5 % (11.5-14.5)
[2017-05-16 06:53] LABS: ALB/GLOB RATIO 1.3 (1.1-1.8); ALT/SGPT 39 U/L (7-56); AST/SGOT 29 U/L (17-59); BLOOD UREA NITROGEN 20 mg/dL (7-21); CALCIUM 9.3 mg/dL (8.4-10.5); GFR AFRICAN-AMERICAN > 60; GFR NON-AFRICAN AMERICAN > 60
[2017-05-16] MEDS: Levalbuterol 0.63 MG/3 ML Inhal Soln UD IH SCH ×2 (07:21→13:54)
[2017-05-16 08:14] VITALS: TEMP 97.5
[2017-05-16] MEDS: Multivitamin With Minerals Tab PO SCH (10:25)
[2017-05-16 10:29] VITALS: BP 110/69
[2017-05-16 14:57] VITALS: PULSE 75
--- NOTE | 2017-05-17 17:16 | PQF CHF ---
05/17/16 Dr. Diaz, Acute CHF is documented. Please indicate type of CHF, as listed below. Thank you. Clarification of your documentation is requested to better reflect the severity of illness and intensity of treatment of your patient. Indicators present [] Diagnosis of CHF and/or history of CHF [x] BNP > 200 [] Imaging Finding of Pulmonary Edema /Pleural Effusions [x] Fluid/Volume Overload [] Pitting edema [] Ejection Fraction < 40% (Indicative of Systolic Heart Failure) [] Ejection Fraction > 40% (Indicative of Diastolic Heart Failure) [] Dyspnea / Orthopenea / Paroxysmal Nocturnal Dyspnea [] Other: Location in the medical record that reflects the above clinical findings: [] Treatment Provided: [] PHYSICIAN'S RESPONSE Based on your medical judgment of the clinical indicators outlined above, are you treating this patient for a known or suspected: [] Acute CHF [] Systolic [] Diastolic [] Combined [] Chronic CHF [] Systolic [] Diastolic [] Combined [x] Acute on Chronic CHF []Systolic [] Diastolic [x] Combined [] CHF due hypertension [] Acute systolic []Chronic systolic [] Acute/ chronic systolic [] Other, please indicate: [] [] If Unable to Determine, please check the box, sign and date. Present On Admission (POA) Indicator: [x] Present at the time of admission [] Not present at the time of admission [] Clinically Undetermined In responding to this query, please exercise your independent professional judgment. The fact that a question is asked does not imply that any particular answer is desired or expected. Thank you for your clarification on this documentation. If you have any questions please call:[ ] * Thank you, [ ] geospatial imagery intelligence analyst [facility]
== END 2017-05-16 16:42 | disposition home or self-care (01) | DRG 127 ==
LOC: ED 03:03 → ERH 04:42 → 3RNO 07:26 → OBSVTOIN 05-14 10:53
PROVIDERS: ADMIT Internal Medicine; ATTEND Hospitalist
DX: I11.0 Hypertensive heart disease with heart failure (principal); I50.43 Acute on chronic combined systolic (congestive) and diastolic (congestive) heart failure; I47.2 Ventricular tachycardia; F10.239 Alcohol dependence with withdrawal, unspecified; J44.9 Chronic obstructive pulmonary disease, unspecified; I27.20 Pulmonary hypertension, unspecified; Z79.01 Long term (current) use of anticoagulants; E78.00 Pure hypercholesterolemia, unspecified; I50.21 Acute systolic (congestive) heart failure; E78.5 Hyperlipidemia, unspecified; F17.210 Nicotine dependence, cigarettes, uncomplicated; G47.33 Obstructive sleep apnea (adult) (pediatric); I25.10 Atherosclerotic heart disease of native coronary artery without angina pectoris; I25.2 Old myocardial infarction; Z59.0 Homelessness; Z82.3 Family history of stroke; R00.0 Tachycardia, unspecified; I51.7 Cardiomegaly; F10.229 Alcohol dependence with intoxication, unspecified; Y90.7 Blood alcohol level of 200-239 mg/100 ml; Z81.1 Family history of alcohol abuse and dependence; Z91.14 Patient's other noncompliance with medication regimen; Z95.5 Presence of coronary angioplasty implant and graft; Z95.810 Presence of automatic (implantable) cardiac defibrillator; R40.2412 Glasgow coma scale score 13-15, at arrival to emergency department

== ENCOUNTER 2017-05-30 20:46 | Emergency (ER) | payer MEDICAID ==
[2017-05-30 20:46] VITALS: BMI 30.8
[2017-05-30 21:07] VITALS: TEMP 98.3
[2017-05-30] MEDS ORDERED: Albuterol 0.5% Inhal Sol (2.5 mg/0.5 ml) UD IH STA (21:26)
--- NOTE | 2017-05-30 21:26 | ED PDOC ---
Arrival/HPI - General Chief Complaint: Alcohol Ingestion Time Seen by Provider: 05/30/17 21:05 Historian: Patient - History of Present Illness Narrative History of Present Illness (Text): 05/30/17 21:22 A 56 year old male, whose past medical history includes CHF, COPD, and intoxication, presents to the emergency department complaining of intoxication and shortness of breath. Patient reports he has been drinking tonight, but states his main complaint is shortness of breath. Mentions having 5 heart attacks and 4 stents placed (last one place 01/01/2016), pacemaker to left chest wall. States symptom began today. Notes also experiencing cough with whitish phlegm, but denies any fever, or any other complaints at this time. No PMD Past Medical History - Provider Review Nursing Documentation Reviewed: Yes - Infectious Disease Hx of Infectious Diseases: None - Cardiac Hx Cardiac Disorders: Yes (coronary stent) Hx Congestive Heart Failure: Yes Hx Hypertension: Yes - Pulmonary Hx Chronic Obstructive Pulmonary Disease (COPD): Yes - Neurological Hx Neurological Disorder: No Hx Alzheimer's Disease: No HX Cerebrovascular Accident: No Hx Dementia: No Hx Dizziness: No Hx Meningitis: No Hx Migraine: No Hx Parkinson's Disease: No Hx Seizures: No Hx Transient Ischemic Attacks (TIA): No - HEENT Hx HEENT Disorder: No (wears glasses) Hx Blind: No Hx Cataracts: No Hx Deafness: No Hx Difficulty Chewing: No (PARTIAL UPPER AND LOWER DENTURES) Hx Epistaxis: No Hx Glaucoma: No Hx Macular Degeneration: No - Renal Hx Renal Disorder: No Hx Dialysis: No Hx Kidney Stones: No Hx Neurogenic Bladder: No Hx Pyelonephritis: No Hx Renal Cancer: No Hx Renal Failure: No - Endocrine/Metabolic Hx Endocrine Disorders: No Hx Adrenal Cancer: No Hx Diabetes Insipidus: No Hx Diabetes Mellitus Type 1: No Hx Diabetes Mellitus Type 2: No (BOARDERLINE) Hx Hyperthyroidism: No Hx Hypothyroidism: No Hx Systemic Lupus Erythematosus: No - Hematological/Oncological Hx Blood Disorders: No Hx AIDS: No Hx Anemia: No Hx Cancer: No Hx Chemotherapy: No Hx Cirrhosis: No Hx Hemophilia: No Hx Hepatitis A: No Hx Hepatitis B: No Hx Hepatitis C: No Hx Metastasis: No Hx Shingles: No Hx Sickle Cell Disease: No Hx Unexplained Bleeding: No - Integumentary Hx Dermatological Disorder: No Hx Basal Cell Carcinoma: No Hx Eczema: No Hx Melanoma: No Hx Psoriasis: No Hx Squamous Cell Carcinoma: No - Musculoskeletal/Rheumatological Hx Falls: No - Gastrointestinal Hx Gastrointestinal Disorders: Yes (HEMORRHOIDS) Hx Colostomy: No Hx Crohn's Disease: No Hx Diverticulitis: No Hx Gall Bladder Disease: No Hx Gastroesophageal Reflux: No Hx Gastrointestinal Ulcer: No Hx Ileostomy: No Hx Liver Failure: No Hx Pancreatitis: No HX Swallowing Problems: No - Genitourinary/Gynecological Hx Genitourinary Disorders: No Hx Hematuria: No Hx Incontinence: No Hx Prostate Problems: No Hx Sexually Transmitted Diseases: No Hx Urinary Tract Infection: No - Psychiatric Hx Psychophysiologic Disorder: Yes Hx Anxiety: Yes Hx Bipolar Disorder: No Hx Depression: Yes Hx Emotional Abuse: No Hx Hallucinations: No Hx Panic Disorder: No Hx Post Traumatic Stress Disorder: No Hx Psychosis: No Hx Physical Abuse: No Hx Schizophrenia: No Hx Sexual Abuse: No Hx Substance Use: Yes Other/Comment: SUBSTANCE USE- COCAINE, PCP, MARIJUANA. ALCOHOL ABUSE - Surgical History Hx Amputation: No Hx Appendectomy: No Hx Cardiac Catheterization: Yes (STENTS X4) Hx Cholecystectomy: No Hx Coronary Stent: Yes (x4 on 01/01/2016) Hx Gastric Bypass Surgery: No Hx Hysterectomy: No Hx Joint Replacement: No Hx Kidney Transplant: No Hx Liver Transplant: No Hx Mastectomy: No Hx Musculoskeletal Surgery: No Hx Open Heart Surgery: No Hx Orthopedic Surgery: No Hx Splenectomy: No Hx Valve Replacement: No Other/Comment: Hx Pacemaker/defibrillator placement. Hx Surgery for undescended testes 1982 - Anesthesia Hx Anesthesia: Yes Hx Anesthesia Reactions: No Hx Malignant Hyperthermia: No - Suicidal Assessment Feels Threatened In Home Enviroment: No Family/Social History - Physician Review Nursing Documentation Reviewed: Yes Family/Social History: No Known Family HX Smoking Status: Current Some Days Smoker Hx Alcohol Use: Yes Frequency of alcohol use: Daily Hx Substance Use: Yes Substance used: Coccaine, Marijuana Allergies/Home Meds Allergies/Adverse Reactions: Allergies No Known Allergies Allergy (Verified 06/08/17 17:35) Home Medications: Home Meds Medication Instructions Recorded Confirmed Rosuvastatin Calcium [Crestor] 40 mg PO HS 06/08/17 06/08/17 traZODone [Desyrel] 100 mg PO DAILY 06/08/17 06/08/17 Review of Systems - Physician Review All systems were reviewed & negative as marked: Yes - Review of Systems Constitutional: absent: Fevers Respiratory: SOB, Cough (with whitish phlegm) Physical Exam Vital Signs Reviewed: Yes Vital Signs Temp Pulse Resp BP Pulse Ox 05/30/17 23:15 105 H 19 132/77 94 L 05/30/17 21:05 98.3 F 122 H 18 126/78 89 L Temperature: Afebrile Blood Pressure: Normal Pulse: Regular Respiratory Rate: Normal Appearance: Positive for: Other (intoxicated; and obese) Pain Distress: None - Systems Exam Head: Present: Atraumatic, Normocephalic, Other (facial erythema) Pupils: Present: PERRL Extroacular Muscles: Present: EOMI Conjunctiva: Present: Injected (consistent with current EtOH abuse) Mouth: Present: Moist Mucous Membranes Neck: Present: Normal Range of Motion Respiratory/Chest: Present: Wheezes (mild), Rhonchi (coarse b/l rhonchi), Other (left chest wall pacemaker; diminished air movement) Cardiovascular: Present: Regular Rate and Rhythm, Normal S1, S2. No: Murmurs Abdomen: No: Tenderness, Distention, Peritoneal Signs Back: Present: Normal Inspection Upper Extremity: Present: Normal Inspection. No: Cyanosis, Edema Lower Extremity: Present: Normal Inspection. No: Edema Neurological: Present: GCS=15, CN II-XII Intact, Speech Normal Skin: Present: Warm, Dry, Normal Color. No: Rashes Psychiatric: Present: Alert, Oriented x 3, Normal Insight, Normal Concentration Medical Decision Making ED Course and Treatment: 05/30/17 21:26 Impression: 56 year old male with intoxication and shortness of breath. Differential Diagnosis included but are not limited to: COPD Exacerbation vs. Intoxication Plan: -- Chest X-ray -- Labs -- Albuterol -- SOLU-Medrol -- Reassess and disposition Prior Visits: Notes and results from previous visits were reviewed. Patient was last seen in the emergency department on Progress Notes: EKG: Ordered, reviewed, and independently interpreted the EKG. Rate : 127 BPM Rhythm : Sinus tachycardia Interpretation : No ST-segment elevations or depressions, no T-wave inversions, normal intervals. QRS, left bundloid change. Comparison : No previous EKG for comparison. 05/30/2017 21:26 Patient requests for nebulizer. - Lab Interpretations Lab Results: 05/30/17 21:47 05/30/17 21:47 Lab Results 05/30/17 21:47: Sodium 135, Potassium 3.8, Chloride 96 L, Carbon Dioxide 25, Anion Gap 17, BUN 19, Creatinine 0.9, Est GFR ( Amer) > 60, Est GFR (Non- Af Amer) > 60, Random Glucose 116 H, Calcium 8.8, Total Bilirubin 0.6, AST 57, ALT 68 H, Alkaline Phosphatase 84, Lactate Dehydrogenase 638, Total Creatine Kinase 92, Troponin I 0.04 D, NT-Pro-B Natriuret Pep 594 H, Total Protein 7.2, Albumin 4.0, Globulin 3.2, Albumin/Globulin Ratio 1.2 05/30/17 21:47: WBC 8.8, RBC 4.57, Hgb 14.6, Hct 41.5 L, MCV 90.8, MCH 31.9, MCHC 35.2, RDW 13.9, Plt Count 184, MPV 9.9, Gran % 68.5 H, Lymph % (Auto) 24.6 , [place] % (Auto) 4.2, Eos % (Auto) 2.2, Baso % (Auto) 0.5, Gran # 6.02, Lymph # ( Auto) 2.2, [place] # (Auto) 0.4, Eos # (Auto) 0.2, Baso # (Auto) 0.04 05/30/17 21:09: POC Glucose (mg/dL) 128 H - RAD Interpretation Radiology Orders: 05/30/17 21:26 CHEST PORTABLE [RAD] Stat - Medication Orders Current Medication Orders: Discontinued Medications Albuterol Sulfate (Albuterol 0.5% Inhal Deidra (2.5 Mg/0.5 Ml) Ud) 10 mg IH STAT STA Stop: 05/30/17 21:27 Last Admin: 05/30/17 22:20 Dose: 10 mg Methylprednisolone (Solu-Medrol) 125 mg IVP STAT STA Stop: 05/30/17 21:28 Last Admin: 05/30/17 22:20 Dose: 125 mg IVP Administration Document 05/30/17 22:20 HI (Rec: 05/30/17 22:20 [id number] Charges for Administration # of IVP Administrations 1 - Scribe Statement The provider has reviewed the documentation as recorded by the Scribe Efrainan Dabdi Provider Rico Attestation: All medical record entries made by the Ellenibsanam were at my direction and personally dictated by me. I have reviewed the chart and agree that the record accurately reflects my personal performance of the history, physical exam, medical decision making, and the department course for this patient. I have also personally directed, reviewed, and agree with the discharge instructions and disposition. Disposition/Present on Arrival - Present on Arrival Any Indicators Present on Arrival: No History of DVT/PE: Yes History of Uncontrolled Diabetes: No Urinary Catheter: No History of Decub. Ulcer: No History Surgical Site Infection Following: None - Disposition Have Diagnosis and Disposition been Completed?: Yes Diagnosis: COPD (chronic obstructive pulmonary disease), ETOH abuse Disposition: HOME/ ROUTINE Disposition Time: 19:14 Patient Plan: Discharge Patient Problems: Current Active Problems Problem Status Onset CHF (congestive heart failure) Chronic COPD (chronic obstructive pulmonary disease) Chronic Condition: GOOD Discharge Instructions (ExitCare): Chronic Obstructive Pulmonary Disease (COPD) , Including Emphysema, Effects of Alcohol on Your Health Print Language: HEBREW Prescriptions: Albuterol Sulfate [Proair Hfa] 8.5 gm IH QID PRN #1 inhaler PRN Reason: Shortness Of Breath Forms: [employer] ([place] Citizen)
[2017-05-30 22:02] LABS: BASO # 0.04 K/mm3 (0.0-2.0); BASO % 0.5 % (0.0-3.0); EOS # 0.2 (0.0-0.7); EOS % 2.2 % (1.5-5.0); GRAN # 6.02 (1.4-6.5); GRAN % 68.5 % (50.0-68.0); HEMOGLOBIN 14.6 g/dL (14.0-18.0); LYMPH # 2.2 (1.2-3.4); LYMPH % 24.6 % (22.0-35.0); MEAN CELL VOLUME 90.8 fl (80.0-105.0); MEAN CORPUSCULAR HEMOGLOBIN 31.9 pg (25.0-35.0); MEAN CORPUSCULAR HGB CONC 35.2 g/dl (31.0-37.0); MEAN PLATELET VOLUME 9.9 fl (7.0-11.0); MONO # 0.4 (0.1-0.6); MONO % 4.2 % (1.0-6.0); RBC 4.57 10^6/uL (3.5-6.1); RED CELL DISTRIBUTION WIDTH 13.9 % (11.5-14.5); WHITE BLOOD COUNT 8.8 10^3/ul (4.5-11.0)
[2017-05-30 22:16] LABS: ALB/GLOB RATIO 1.2 (1.1-1.8); ALT/SGPT 68 U/L (7-56); AST/SGOT 57 U/L (17-59); BLOOD UREA NITROGEN 19 mg/dL (7-21); CALCIUM 8.8 mg/dL (8.4-10.5); GFR AFRICAN-AMERICAN > 60; GFR NON-AFRICAN AMERICAN > 60
[2017-05-30 22:25] LABS: B-TYPE NATRIURETIC PEPTIDE 594 pg/mL (0-450); TROPONIN I 0.04 ng/mL
[2017-05-30 23:52] VITALS: BP 132/77; PULSE 105; RESP 19; O2SAT 94
--- NOTE | 2017-05-31 09:21 | RAD ---
HISTORY: Shortness of breath. COMPARISON: 05/13/2017 FINDINGS: LUNGS: No active pulmonary disease. PLEURA: No significant pleural effusion identified, no pneumothorax apparent. CARDIOVASCULAR: Cardiomegaly. No evidence of acute, significant cardiovascular disease. Position/ configuration of pacemaker Satisfactory. OSSEOUS STRUCTURES: No significant abnormalities. VISUALIZED UPPER ABDOMEN: Normal. OTHER FINDINGS: None. IMPRESSION: No active disease. No significant interval change compared to the prior examination(s).
--- NOTE | 2017-06-03 09:21 | CARD ---
APPROVED REPORT EKG Measurement Heart [id number] ID [id number] <Conclusion> Sinus tachycardia Possible Left atrial enlargement IVCD Nonspecific T wave abnormality
== END 2017-05-30 23:20 | disposition home or self-care (01) ==
LOC: ED 20:46
DX: J44.9 Chronic obstructive pulmonary disease, unspecified (principal); F10.10 Alcohol abuse, uncomplicated; I11.0 Hypertensive heart disease with heart failure; I50.9 Heart failure, unspecified; Z95.5 Presence of coronary angioplasty implant and graft; F17.210 Nicotine dependence, cigarettes, uncomplicated
CPT/HCPCS: 71045; 80053; 82550; 82948; 83615; 83880; 84484; 85025; 93005; 94640; 96374; 99283; J2930

== ENCOUNTER 2017-06-08 11:19 | Inpatient (IN) | payer MEDICAID ==
[2017-06-08] MEDS ORDERED: Nitroglycerin 50mg in D5W 50 MG/250 ML BOTTLE IV PRN (11:26)
[2017-06-08] MEDS ORDERED: Albuterol-Ipratrop 3 mg / 0.5 (3 ml) UD ONE (11:31)
[2017-06-08 11:33] VITALS: BMI 32.5
[2017-06-08] MEDS: Albuterol-Ipratrop 3 mg / 0.5 (3 ml) UD IH SCH ×5 (11:38→20:15)
--- NOTE | 2017-06-08 11:41 | ED PDOC ---
Arrival/HPI - General Time Seen by Provider: 06/08/17 11:24 Historian: Patient, EMS - History of Present Illness Narrative History of Present Illness (Text): 06/08/17 11:37 A 56 year old male, whose past medical history includes COPD, CHF, prior MIs and alcohol abuse, brought into the emergency department by EMS in respiratory distress. Patient became short of breath at home earlier today. He notes using home medications, with no improvement. As per EMS, patient was placed on BiPAP and given 1 sublingual nitroglycerin and 20 IV lasix on route to emergency room. Patient seen immediately upon arrival. Patient denies any fever, chills, nausea, vomiting, abdominal pain, chest pain or any other complaints. Time/Duration: Other (earlier today) Context: Home Past Medical History - Provider Review Nursing Documentation Reviewed: Yes - Infectious Disease Hx of Infectious Diseases: None - Cardiac Hx Cardiac Disorders: Yes (coronary stent) Hx Congestive Heart Failure: Yes Hx Hypertension: Yes - Pulmonary Hx Chronic Obstructive Pulmonary Disease (COPD): Yes - Neurological Hx Neurological Disorder: No Hx Alzheimer's Disease: No HX Cerebrovascular Accident: No Hx Dementia: No Hx Dizziness: No Hx Meningitis: No Hx Migraine: No Hx Parkinson's Disease: No Hx Seizures: No Hx Transient Ischemic Attacks (TIA): No - HEENT Hx HEENT Disorder: No (wears glasses) Hx Blind: No Hx Cataracts: No Hx Deafness: No Hx Difficulty Chewing: No (PARTIAL UPPER AND LOWER DENTURES) Hx Epistaxis: No Hx Glaucoma: No Hx Macular Degeneration: No - Renal Hx Renal Disorder: No Hx Dialysis: No Hx Kidney Stones: No Hx Neurogenic Bladder: No Hx Pyelonephritis: No Hx Renal Cancer: No Hx Renal Failure: No - Endocrine/Metabolic Hx Endocrine Disorders: No Hx Adrenal Cancer: No Hx Diabetes Insipidus: No Hx Diabetes Mellitus Type 1: No Hx Diabetes Mellitus Type 2: No (BOARDERLINE) Hx Hyperthyroidism: No Hx Hypothyroidism: No Hx Systemic Lupus Erythematosus: No - Hematological/Oncological Hx Blood Disorders: No Hx AIDS: No Hx Anemia: No Hx Cancer: No Hx Chemotherapy: No Hx Cirrhosis: No Hx Hemophilia: No Hx Hepatitis A: No Hx Hepatitis B: No Hx Hepatitis C: No Hx Metastasis: No Hx Shingles: No Hx Sickle Cell Disease: No Hx Unexplained Bleeding: No - Integumentary Hx Dermatological Disorder: No Hx Basal Cell Carcinoma: No Hx Eczema: No Hx Melanoma: No Hx Psoriasis: No Hx Squamous Cell Carcinoma: No - Musculoskeletal/Rheumatological Hx Falls: No - Gastrointestinal Hx Gastrointestinal Disorders: Yes (HEMORRHOIDS) Hx Colostomy: No Hx Crohn's Disease: No Hx Diverticulitis: No Hx Gall Bladder Disease: No Hx Gastroesophageal Reflux: No Hx Gastrointestinal Ulcer: No Hx Ileostomy: No Hx Liver Failure: No Hx Pancreatitis: No HX Swallowing Problems: No - Genitourinary/Gynecological Hx Genitourinary Disorders: No Hx Hematuria: No Hx Incontinence: No Hx Prostate Problems: No Hx Sexually Transmitted Diseases: No Hx Urinary Tract Infection: No - Psychiatric Hx Psychophysiologic Disorder: Yes Hx Anxiety: Yes Hx Bipolar Disorder: No Hx Depression: Yes Hx Emotional Abuse: No Hx Hallucinations: No Hx Panic Disorder: No Hx Post Traumatic Stress Disorder: No Hx Psychosis: No Hx Physical Abuse: No Hx Schizophrenia: No Hx Sexual Abuse: No Hx Substance Use: Yes Other/Comment: SUBSTANCE USE- COCAINE, PCP, MARIJUANA. ALCOHOL ABUSE - Surgical History Hx Amputation: No Hx Appendectomy: No Hx Cardiac Catheterization: Yes (STENTS X4) Hx Cholecystectomy: No Hx Coronary Stent: Yes (x4 on 01/01/2016) Hx Gastric Bypass Surgery: No Hx Hysterectomy: No Hx Joint Replacement: No Hx Kidney Transplant: No Hx Liver Transplant: No Hx Mastectomy: No Hx Musculoskeletal Surgery: No Hx Open Heart Surgery: No Hx Orthopedic Surgery: No Hx Splenectomy: No Hx Valve Replacement: No Other/Comment: Hx Pacemaker/defibrillator placement. Hx Surgery for undescended testes 1982 - Anesthesia Hx Anesthesia: Yes Hx Anesthesia Reactions: No Hx Malignant Hyperthermia: No - Suicidal Assessment Feels Threatened In Home Enviroment: No Family/Social History - Physician Review Nursing Documentation Reviewed: Yes Family/Social History: No Known Family HX Smoking Status: Current Some Days Smoker Hx Alcohol Use: Yes Hx Substance Use: Yes Substance used: Coccaine, Marijuana Allergies/Home Meds Allergies/Adverse Reactions: Allergies No Known Allergies Allergy (Verified 06/08/17 11:33) Home Medications: Home Meds Medication Instructions Recorded Confirmed Rosuvastatin Calcium [Crestor] 40 mg PO HS 06/08/17 06/08/17 traZODone [Desyrel] 100 mg PO DAILY 06/08/17 06/08/17 Review of Systems - Physician Review All systems were reviewed & negative as marked: Yes - Review of Systems Constitutional: absent: Fevers, Night Sweats Respiratory: SOB Cardiovascular: absent: Chest Pain Gastrointestinal: absent: Abdominal Pain, Nausea, Vomiting Physical Exam Vital Signs Reviewed: Yes Vital Signs Temp Pulse Resp BP Pulse Ox 06/08/17 12:08 127 H 30 H 121/48 L 25 L 06/08/17 12:06 129 H 30 H 97 06/08/17 11:39 159/116 H 06/08/17 11:28 96.3 F L 147 H 33 H 153/116 H 88 L 06/08/17 11:22 145 H 153/116 H Temperature: Afebrile Blood Pressure: Hypertensive Pulse: Tachycardic Respiratory Rate: Tachypneic Appearance: Positive for: Well-Appearing, Non-Toxic, Comfortable Pain Distress: None Mental Status: Positive for: Alert and Oriented X 3 - Systems Exam Head: Present: Atraumatic, Normocephalic Pupils: Present: PERRL Extroacular Muscles: Present: EOMI Conjunctiva: Present: Normal Mouth: Present: Moist Mucous Membranes Neck: Present: Normal Range of Motion Respiratory/Chest: Present: Decreased Breath Sounds, Rales (bilaterally), Tachypneic, Other (speaking in short sentences). No: Accessory Muscle Use Cardiovascular: Present: Regular Rate and Rhythm, Normal S1, S2. No: Murmurs Abdomen: Present: Normal Bowel Sounds. No: Tenderness, Distention, Peritoneal Signs Back: Present: Normal Inspection Upper Extremity: Present: Normal Inspection. No: Cyanosis, Edema Lower Extremity: Present: Edema (trace edema bilaterally). No: CALF TENDERNESS Neurological: Present: GCS=15, CN II-XII Intact, Speech Normal Skin: Present: Warm, Normal Color, Diaphoretic. No: Rashes Psychiatric: Present: Alert, Oriented x 3, Normal Insight, Normal Concentration Medical Decision Making ED Course and Treatment: 06/08/17 11:37 Impression: A 56 year old male with shortness of breath Differential Diagnosis included but are not limited to: CHF/COPD exacerbation Plan: -- Chest xray -- EKG -- Labs -- Blood culture -- Duoneb, Lasix, Solumedrol and Nitroglycerin -- Reassess and disposition Progress Notes: Patient was seen upon arrival, immediately placed on nitro drip and given 40 mg lasix, solumedrol and duoneb with improvement of symptoms. Patient is currently on BiPAP 60% at FIO2 with a respiratory rate of 16. EKG shows sinus tachycardia at 103 BPM with PVCs, incomplete LBBB. Interpreted by me. 06/08/17 12:19 Patient noted to have WBC elevated, tachycardia, and elevated Lactic Acid. Code Sepsis was caled. CXR appears CHF. Will treat with Cefepime IV and Vancomycin IV. Case was discussed with Dr. Diaz, Hospitalist, who will accept the patient to her service. Case discussed with Dr. Blankenship, ICU, who will accept the case to the ICU. - Critical Care Critical Care Minutes: 45 minutes - Lab Interpretations Lab Results: 06/08/17 11:38 06/08/17 11:38 Lab Results 06/08/17 11:38: Alcohol, Quantitative 98 H 06/08/17 11:38: Sodium 145, Chloride 108 H, Potassium 3.8, Carbon Dioxide 20 L, Anion Gap 21 H, BUN 18, Creatinine 1.2, Est GFR ( Amer) > 60, Est GFR ( Non-Af Amer) > 60, Random Glucose 275 H, Calcium 8.3 L, Lactate Dehydrogenase 783 H, Total Creatine Kinase 90, Troponin I 0.04, NT-Pro-B Natriuret Pep 1800 H 06/08/17 11:38: pO2 43, VBG pH 7.07 L*, VBG pCO2 70.0 H*, VBG HCO3 20.3 L, VBG Total CO2 22.4, VBG O2 Sat (Calc) 69.7 H, VBG Base Excess -10.9 L, VBG Potassium 3.8, Sodium 143.0, Chloride 107.0, Glucose 291 H, Lactate 4.1 H*, FiO2 21.0, Venous Blood Potassium 3.8 06/08/17 11:38: PT 10.6, INR 0.92 L, APTT 31.3 06/08/17 11:38: WBC 12.8 H D, RBC 4.89, Hgb 15.9, Hct 46.7, MCV 95.5 D, MCH 32.5, MCHC 34.0, RDW 14.6 H, Plt Count 207, MPV 10.8, Gran % 65.0, Lymph % (Auto ) 27.7, [place] % (Auto) 5.7, Eos % (Auto) 1.1 L, Baso % (Auto) 0.5, Gran # 8.30 H , Lymph # (Auto) 3.5 H, [place] # (Auto) 0.7 H, Eos # (Auto) 0.1, Baso # (Auto) 0.06 I have reviewed the lab results: Yes - RAD Interpretation Radiology Orders: 06/08/17 11:25 CHEST PORTABLE [RAD] Stat - Medication Orders Current Medication Orders: Nitroglycerin/Dextrose (Nitroglycerin 50 Mg/250 Ml D5w) 50 mg in 250 mls @ 1.5 mls/hr IV .Q24H PRN; Protocol; 5 MCG/MIN PRN Reason: Wheezing Last Admin: 06/08/17 11:22 Dose: 1.5 mls/hr eMAR Start Stop Document 06/08/17 11:22 [email or web address] (Rec: 06/08/17 11:52 [email or web address] [id number]) Intravenous Solution Start Date 06/08/17 Start Time 11:22 APR Pulse and Blood Pressure Document 06/08/17 11:22 [email or web address] (Rec: 06/08/17 11:52 [email or web address] [id number]) Pulse Pulse Rate (60-90) 145 Blood Pressure Blood Pressure (100/60-150/90) 153/116 Cefepime HCl (Maxipime 2gm) 2 gm in 100 mls @ 100 mls/hr IVPB STAT STA PRN Reason: Protocol Stop: 06/08/17 13:10 Vancomycin HCl (Vancomycin 1gm) 1 gm in 250 mls @ 167 mls/hr IVPB STAT STA PRN Reason: Protocol Stop: 06/08/17 13:42 Discontinued Medications Albuterol/Ipratropium (Duoneb 3 Mg/0.5 Mg (3 Ml) Ud) 3 ml IH Q15M TU Stop: 06/08/17 12:01 Last Admin: 06/08/17 11:39 Dose: 3 ml Furosemide (Lasix) 40 mg IVP STAT STA Stop: 06/08/17 11:25 Last Admin: 06/08/17 11:39 Dose: 40 mg MAR Blood Pressure Document 06/08/17 11:39 [email or web address] (Rec: 06/08/17 11:49 [email or web address] [id number]) Blood Pressure Blood Pressure (100/60-150/90) 159/116 IVP Administration Document 04/19/18 11:39 [email or web address] (Rec: 06/08/17 11:49 [email or web address] [id number]) Charges for Administration # of IVP Administrations 1 Methylprednisolone (Solu-Medrol) 125 mg IVP STAT STA Stop: 06/08/17 11:25 Last Admin: 06/08/17 11:36 Dose: 125 mg IVP Administration Document 06/08/17 11:36 [email or web address] (Rec: 06/08/17 11:50 [email or web address] [id number]) Charges for Administration # of IVP Administrations 1 - Scribe Statement The provider has reviewed the documentation as recorded by the Rico Arambula Provider Scribe Attestation: All medical record entries made by the Scribe were at my direction and personally dictated by me. I have reviewed the chart and agree that the record accurately reflects my personal performance of the history, physical exam, medical decision making, and the department course for this patient. I have also personally directed, reviewed, and agree with the discharge instructions and disposition. Disposition/Present on Arrival - Present on Arrival Any Indicators Present on Arrival: Yes History of DVT/PE: Yes History of Uncontrolled Diabetes: No Urinary Catheter: No History Surgical Site Infection Following: None - Disposition Have Diagnosis and Disposition been Completed?: Yes Diagnosis: CHF (congestive heart failure), COPD (chronic obstructive pulmonary disease) Disposition: HOSPITALIZED Disposition Time: 12:25 Patient Plan: Admission Condition: CRITICAL
[2017-06-08 11:53] LABS: VENOUS BLOOD GAS BASE EXCESS -10.9 mmol/L (0.0-2.0); VENOUS BLOOD GAS PO2 43 mm/Hg (30-55)
[2017-06-08 11:55] LABS: BASO # 0.06 K/mm3 (0.0-2.0); BASO % 0.5 % (0.0-3.0); EOS # 0.1 (0.0-0.7); EOS % 1.1 % (1.5-5.0); GRAN # 8.3 (1.4-6.5); HEMOGLOBIN 15.9 g/dL (14.0-18.0); LYMPH # 3.5 (1.2-3.4); LYMPH % 27.7 % (22.0-35.0); MEAN CELL VOLUME 95.5 fl (80.0-105.0); MEAN CORPUSCULAR HEMOGLOBIN 32.5 pg (25.0-35.0); MEAN PLATELET VOLUME 10.8 fl (7.0-11.0); MONO # 0.7 (0.1-0.6); MONO % 5.7 % (1.0-6.0); RBC 4.89 10^6/uL (3.5-6.1); RED CELL DISTRIBUTION WIDTH 14.6 % (11.5-14.5); WHITE BLOOD COUNT 12.8 10^3/ul (4.5-11.0)
[2017-06-08 12:03] LABS: BLOOD UREA NITROGEN 18 mg/dL (7-21); CALCIUM 8.3 mg/dL (8.4-10.5); GFR AFRICAN-AMERICAN > 60; GFR NON-AFRICAN AMERICAN > 60
[2017-06-08 12:08] LABS: VENOUS BLOOD PH 7.07 (7.32-7.43)
[2017-06-08] MEDS ORDERED: Cefepime IV 2 gm in NS 2 GM/100 ML BAG IVPB STA ×2 (12:11→12:23)
[2017-06-08] MEDS ORDERED: Vancomycin 1gm in NS 250ml 1 GM/250 ML BAG IVPB STA (12:13)
[2017-06-08 12:14] LABS: B-TYPE NATRIURETIC PEPTIDE 1800 pg/mL (0-450); INR 0.92 (0.93-1.08); PARTIAL THROMBOPLASTIN TIME 31.3 Seconds (25.1-36.5); PROTHROMBIN TIME 10.6 SECONDS (9.4-12.5); TROPONIN I 0.04 ng/mL
[2017-06-08 12:24] LABS: ARTERIAL BLOOD GAS HCO3 16.5 mmol/L (21-28); ARTERIAL BLOOD GAS HEMOGLOBIN 15.2 g/dL (11.7-17.4); ARTERIAL BLOOD GAS O2 CAPACITY 20.9 mL/dl (16-24); ARTERIAL BLOOD GAS O2 CONTENT 20.8 ML/dl (15-23); ARTERIAL BLOOD GAS O2 SAT 99.7 % (95-98); ARTERIAL BLOOD GAS PCO2 32 mm/Hg (35-45); ARTERIAL BLOOD GAS PH 7.32 (7.35-7.45); ARTERIAL BLOOD GAS TCO2 17.5 mmol.L (22-28)
--- NOTE | 2017-06-08 13:10 | RAD ---
HISTORY: Shortness of breath, r/o chf COMPARISON: 05/30/2017. FINDINGS: LUNGS: The lungs are well inflated. There is moderate pulmonary venous congestion and pulmonary redistribution. No focal consolidation PLEURA: No significant pleural effusion identified, no pneumothorax apparent. CARDIOVASCULAR: The heart is normal in size. There is prominent central vasculature. There is stable position lua of left-sided AICD. OSSEOUS STRUCTURES: No significant abnormalities. VISUALIZED UPPER ABDOMEN: Normal. OTHER FINDINGS: None. IMPRESSION: Findings are most compatible with congestive heart failure.
--- NOTE | 2017-06-08 13:56 | CP.PCM.CON ---
History of Present Illness - History of Present Illness History of Present Illness: Critical Care Consult Note HPI Patient is 56yo male with PMHx of COPD, Systolic CHF, CAD, EtOH abuse, medicaiton non compliance, homeless, presents to the ER complaining of SOB. Pt notes SOB began this morning, without fever, chills, chest pain, palpitations. Pt endorses dry non productive cough. EMS in the field gave patient Lasix IV x 1 , NTG SL, and placed on BIPAP. Currently afebrile, HD stable, on BIPAP, speaking full sentences. Admits to EtOH use today, denies illicit drugs. PMHx as above PSHx as above Meds as per EMR ROS as above FHx NC Social +etoh, +cigarette smoker, denies drug use Review of Systems - Review of Systems Review of Systems: as per HPI Past Patient History - Infectious Disease Hx of Infectious Diseases: None - Past Medical History & Family History Past Medical History?: Yes - Past Social History Smoking Status: Current Some Days Smoker - CARDIAC Hx Cardiac Disorders: Yes (coronary stent) Hx Congestive Heart Failure: Yes Hx Hypertension: Yes - PULMONARY Hx Chronic Obstructive Pulmonary Disease (COPD): Yes - NEUROLOGICAL Hx Neurological Disorder: No Hx Alzheimer's Disease: No HX Cerebrovascular Accident: No Hx Dementia: No Hx Dizziness: No Hx Meningitis: No Hx Migraine: No Hx Parkinson's Disease: No Hx Seizures: No Hx Transient Ischemic Attacks (TIA): No - HEENT Hx HEENT Problems: No (wears glasses) Hx Blind: No Hx Cataracts: No Hx Deafness: No Hx Difficulty Chewing: No (PARTIAL UPPER AND LOWER DENTURES) Hx Epistaxis: No Hx Glaucoma: No Hx Macular Degeneration: No - RENAL Hx Chronic Kidney Disease: No Hx Dialysis: No Hx Kidney Stones: No Hx Neurogenic Bladder: No Hx Pyelonephritis: No Hx Renal (Kidney) Cancer: No Hx Renal Failure: No - ENDOCRINE/METABOLIC Hx Endocrine Disorders: No Hx Adrenal Cancer: No Hx Diabetes Insipidus: No Hx Diabetes Mellitus Type 1: No Hx Diabetes Mellitus Type 2: No (BOARDERLINE) Hx Hyperthyroidism: No Hx Hypothyroidism: No Hx Systemic Lupus Erythematosus: No - HEMATOLOGICAL/ONCOLOGICAL Hx Blood Disorders: No Hx AIDS: No Hx Anemia: No Hx Cancer: No Hx Chemotherapy: No Hx Cirrhosis: No Hx Hemophilia: No Hx Hepatitis A: No Hx Hepatitis B: No Hx Hepatitis C: No Hx Metastesis: No Hx Shingles: No Hx Sickle Cell Disease: No Hx Unexplained Bleeding: No - INTEGUMENTARY Hx Dermatological Problems: No Hx Basil Cell: No Hx Eczema: No Hx Melanoma: No Hx Psoriasis: No Hx Squamous Cell: No - MUSCULOSKELETAL/RHEUMATOLOGICAL Hx Falls: No - GASTROINTESTINAL Hx Gastrointestinal Disorders: Yes (HEMORRHOIDS) Hx Colostomy: No Hx Crohn's Disease: No Hx Diverticulitis: No Hx Gall Bladder Disease: No Hx Gastroesophageal Reflux: No Hx Ileostomy: No Hx Liver Failure: No Hx Pancreatitis: No HX Swallowing Problems: No - GENITOURINARY/GYNECOLOGICAL Hx Genitourinary Disorders: No Hx Hematuria: No Hx Incontinence: No Hx Prostate Problems: No Hx Sexually Transmitted Disorders: No Hx Urinary Tract Infection: No - PSYCHIATRIC Hx Psychophysiologic Disorder: Yes Hx Anxiety: Yes Hx Bipolar Disorder: No Hx Depression: Yes Hx Emotional Abuse: No Hx Hallucinations: No Hx Panic Symptoms: No Hx Post Traumatic Stress Disorder: No Hx Psychosis: No Hx Physical Abuse: No Hx Schizophrenia: No Hx Sexual Abuse: No Hx Substance Use: Yes Other/Comment: SUBSTANCE USE- COCAINE, PCP, MARIJUANA. ALCOHOL ABUSE - SURGICAL HISTORY Hx Amputation: No Hx Appendectomy: No Hx Cardiac Catheterization: Yes (STENTS X4) Hx Cholecystectomy: No Hx Coronary Stent: Yes (x4 on 01/01/2016) Hx Gastric Bypass Surgery: No Hx Hysterectomy: No Hx Joint Replacement: No Hx Kidney Transplant: No Hx Liver Transplant: No Hx Mastectomy: No Hx Musculoskeletal Surgery: No Hx Open Heart Surgery: No Hx Orthopedic Surgery: No Hx Splenectomy: No Hx Valve Replacement: No Other/Comment: Hx Pacemaker/defibrillator placement. Hx Surgery for undescended testes 1982 - ANESTHESIA Hx Anesthesia: Yes Hx Anesthesia Reactions: No Hx Malignant Hyperthermia: No Meds Allergies/Adverse Reactions: Allergies Allergy/AdvReac Type Severity Reaction Status Date / Time No Known Allergies Allergy Verified 06/08/17 11:33 - Medications Medications: Current Medications Nitroglycerin/Dextrose (Nitroglycerin 50 Mg/250 Ml D5w) 50 mg in 250 mls @ 1.5 mls/hr IV .Q24H PRN; Protocol; 5 MCG/MIN PRN Reason: Wheezing Last Titration: 06/08/17 12:20 Dose: 0 mcg/min, 0 mls/hr Vancomycin HCl (Vancomycin 1gm) 1 gm in 250 mls @ 167 mls/hr IVPB STAT STA PRN Reason: Protocol Stop: 06/08/17 13:42 Physical Exam - Constitutional Appears: Non-toxic, No Acute Distress - Head Exam Head Exam: NORMAL INSPECTION - Eye Exam Eye Exam: Normal appearance - ENT Exam ENT Exam: Mucous Membranes Moist - Neck Exam Neck exam: Positive for: Full Rom - Respiratory Exam Respiratory Exam: Rales, NORMAL BREATHING PATTERN - Cardiovascular Exam Cardiovascular Exam: Tachycardia, REGULAR RHYTHM, +S1, +S2 - GI/Abdominal Exam GI & Abdominal Exam: Normal Bowel Sounds, Soft - Extremities Exam Extremities exam: Positive for: pedal edema - Neurological Exam Neurological exam: Alert, Oriented x3 - Psychiatric Exam Psychiatric exam: Normal Affect - Skin Skin Exam: Normal Color, Warm Results - Vital Signs Recent Vital Signs: Last Vital Signs Temp 98.4 F 06/08/17 12:22 Pulse 119 H 06/08/17 13:22 Resp 30 H 06/08/17 13:22 BP 127/85 06/08/17 12:47 Pulse Ox 98 06/08/17 13:22 - Labs Result Diagrams: 06/08/17 11:38 06/08/17 11:38 - Imaging and Cardiology Chest x-ray Status: Image reviewed by me, Report reviewed by me Assessment & Plan - Assessment and Plan (Free Text) Assessment: 56yo male a/w SOB< acute CHF exacerbation CHF exacerbation, acute systolic decompensated SOB Volume overload Lactic Acidosis CAD Tachycardia, Sinus - currently afebrile, HD stable, comfortable, OFF BIPAP, on 2LNC, sat 95% - on exam AAOx3, NAD, rales bilateral, LE edema - questionable compliance with meds - positive ETOH - elevated lactic acidosis, broad spectrum antibiotics given Recommend: - supp o2 as needed, BIPAP as needed, and at night 12//40% - panculture, UCx, BCx, Proca, Sputum Culture - Cefepime, Vanco for now, until cultures result - BP control, would hold BB for now - Lasix 0mg IV q12hr - daily I/Os, weights - cardiology eval - repeat cardiac enzymes - ECHO done in Feb 2017, noted - HOLD MUNIR/ARB for now - monitor HH - FS control - Thiamine, Folic Acid, MVT - monitor for EtOH withdrawal - GI ppx - DVT ppx - Monitor in CCU Critical care time 30 minutes
--- NOTE | 2017-06-08 14:20 | CP.PCM.HP ---
<Vitor Ludwig - Last Filed: 06/08/17 14:21> History of Present Illness - History of Present Illness History of Present Illness: IM H&P for Hospitalist Service CC: Shortness of breath This is a 56 yo M with PMH of HTN, COPD, CAD s/p 4 stents and AICD, CHF with EF 35%, IN, anxiety, depression, polysubstance abuse, and alcohol abuse who presents to [facility] with acutely worsening shortness of breath that began today. As per patient, been getting short of breath for several days, but reports drinking "a lot" of alcohol last night (unable/unwilling to further quantify), and began feeling short of breath suddenly today. Denies acute event preceding or precipitating shortness of breath. When asked if he felt like he was choking at any point last night while drinking, he denies this, but reports sensation of choking sometime this AM, which subsequently passed. Also reports intermittently coughing up sputum today (bucket at bedside in ED with some rust-currant jelly colored sputum). Denies chest pain, emesis, diarrhea, dysuria, hematuria, focal weakness or parethesias, syncope/near-syncope. Reports compliance with home meds, but with further questioning, admits he has been homeless and without meds for some time, and only just restarted his some medications ~1 week ago. All other ROS in 12-system review negative. Of note, patient on BiPAP due to respiratory distress on arrival. He is mildly conversationally dyspnic (can speak sentence fragments without needing to stop to breath). PMH: as above PSH: Testicular surgery for undescended testicle, Cardiac cath with stents, AICD placement Fam Hx: mother and 2 brothers both of stroke; father of either IN or CVA; ETOH in both sides of family; denies pulm disease hx in family Soc Hx: homeless, lives in [facility]. + tobacco (1ppd for many years, reports now down to 2 cigarrettes per week). Alcohol abuser, reports last drink was last night (drank "A lot," won't quantify further; 3-4 x 24 ounce bottles of beer daily as per prior charting), hx of polysubstance abuse (cocaine , PCP, Marijuana) but denies any recent use "in years" PMD: PMD: [facility] Present on Admission - Present on Admission Any Indicators Present on Admission: Yes History of DVT/PE: Yes History of Uncontrolled Diabetes: No Urinary Catheter: No Review of Systems - Review of Systems All systems: reviewed and no additional remarkable complaints except (as per HPI ) Past Patient History - Infectious Disease Hx of Infectious Diseases: None - Past Medical History & Family History Past Medical History?: Yes - Past Social History Smoking Status: Current Some Days Smoker - CARDIAC Hx Cardiac Disorders: Yes (coronary stent) Hx Congestive Heart Failure: Yes Hx Hypertension: Yes - PULMONARY Hx Chronic Obstructive Pulmonary Disease (COPD): Yes - NEUROLOGICAL Hx Neurological Disorder: No Hx Alzheimer's Disease: No HX Cerebrovascular Accident: No Hx Dementia: No Hx Dizziness: No Hx Meningitis: No Hx Migraine: No Hx Parkinson's Disease: No Hx Seizures: No Hx Transient Ischemic Attacks (TIA): No - HEENT Hx HEENT Problems: No (wears glasses) Hx Blind: No Hx Cataracts: No Hx Deafness: No Hx Difficulty Chewing: No (PARTIAL UPPER AND LOWER DENTURES) Hx Epistaxis: No Hx Glaucoma: No Hx Macular Degeneration: No - RENAL Hx Chronic Kidney Disease: No Hx Dialysis: No Hx Kidney Stones: No Hx Neurogenic Bladder: No Hx Pyelonephritis: No Hx Renal (Kidney) Cancer: No Hx Renal Failure: No - ENDOCRINE/METABOLIC Hx Endocrine Disorders: No Hx Adrenal Cancer: No Hx Diabetes Insipidus: No Hx Diabetes Mellitus Type 1: No Hx Diabetes Mellitus Type 2: No (BOARDERLINE) Hx Hyperthyroidism: No Hx Hypothyroidism: No Hx Systemic Lupus Erythematosus: No - HEMATOLOGICAL/ONCOLOGICAL Hx Blood Disorders: No Hx AIDS: No Hx Anemia: No Hx Cancer: No Hx Chemotherapy: No Hx Cirrhosis: No Hx Hemophilia: No Hx Hepatitis A: No Hx Hepatitis B: No Hx Hepatitis C: No Hx Metastesis: No Hx Shingles: No Hx Sickle Cell Disease: No Hx Unexplained Bleeding: No - INTEGUMENTARY Hx Dermatological Problems: No Hx Basil Cell: No Hx Eczema: No Hx Melanoma: No Hx Psoriasis: No Hx Squamous Cell: No - MUSCULOSKELETAL/RHEUMATOLOGICAL Hx Falls: No - GASTROINTESTINAL Hx Gastrointestinal Disorders: Yes (HEMORRHOIDS) Hx Colostomy: No Hx Crohn's Disease: No Hx Diverticulitis: No Hx Gall Bladder Disease: No Hx Gastroesophageal Reflux: No Hx Ileostomy: No Hx Liver Failure: No Hx Pancreatitis: No HX Swallowing Problems: No - GENITOURINARY/GYNECOLOGICAL Hx Genitourinary Disorders: No Hx Hematuria: No Hx Incontinence: No Hx Prostate Problems: No Hx Sexually Transmitted Disorders: No Hx Urinary Tract Infection: No - PSYCHIATRIC Hx Psychophysiologic Disorder: Yes Hx Anxiety: Yes Hx Bipolar Disorder: No Hx Depression: Yes Hx Emotional Abuse: No Hx Hallucinations: No Hx Panic Symptoms: No Hx Post Traumatic Stress Disorder: No Hx Psychosis: No Hx Physical Abuse: No Hx Schizophrenia: No Hx Sexual Abuse: No Hx Substance Use: Yes Other/Comment: SUBSTANCE USE- COCAINE, PCP, MARIJUANA. ALCOHOL ABUSE - SURGICAL HISTORY Hx Amputation: No Hx Appendectomy: No Hx Cardiac Catheterization: Yes (STENTS X4) Hx Cholecystectomy: No Hx Coronary Stent: Yes (x4 on 01/01/2016) Hx Gastric Bypass Surgery: No Hx Hysterectomy: No Hx Joint Replacement: No Hx Kidney Transplant: No Hx Liver Transplant: No Hx Mastectomy: No Hx Musculoskeletal Surgery: No Hx Open Heart Surgery: No Hx Orthopedic Surgery: No Hx Splenectomy: No Hx Valve Replacement: No Other/Comment: Hx Pacemaker/defibrillator placement. Hx Surgery for undescended testes 1982 - ANESTHESIA Hx Anesthesia: Yes Hx Anesthesia Reactions: No Hx Malignant Hyperthermia: No Meds Allergies/Adverse Reactions: Allergies Allergy/AdvReac Type Severity Reaction Status Date / Time No Known Allergies Allergy Verified 06/08/17 17:35 Physical Exam - Constitutional Appears: Non-toxic, In Acute Distress (respiratory distress, on BiPAP), Chronically Ill - Head Exam Head Exam: ATRAUMATIC, NORMAL INSPECTION, NORMOCEPHALIC - Eye Exam Eye Exam: EOMI, Normal appearance. absent: Conjunctival injection, Scleral icterus Pupil Exam: absent: Irregular, Unequal - ENT Exam ENT Exam: Mucous Membranes Moist - Neck Exam Neck exam: Positive for: Full Rom. Negative for: Lymphadenopathy, Thyromegaly - Respiratory Exam Respiratory Exam: absent: Clear to Auscultation Bilateral, NORMAL BREATHING PATTERN Additional comments: decreased breath sounds in all walker, crackles/rales in all walker some abdominal breathing, no accessory muscle use appreciated at time of exam mildly dyspnic with speech (able to speak small sentences without needing to stop for breaths) - Cardiovascular Exam Cardiovascular Exam: Tachycardia, REGULAR RHYTHM, +S1, +S2. absent: JVD - GI/Abdominal Exam GI & Abdominal Exam: Diminished Bowel Sounds, Firm. absent: Distended ( protruberant belly, but no palpable masses or appreciable fluid wave), Rigid, Soft, Tenderness - Extremities Exam Extremities exam: Positive for: normal capillary refill, pedal edema (+1 pitting in bilateral LE from ankle to bottom 1/3rd of shins). Negative for: calf tenderness, joint swelling, tenderness - Neurological Exam Additional comments: awake and alert, following all commands appropriately, moving all extremities spontaneously intentionally lying in a lateral recumbent position due to sensation of improved breathing, but ROM and motor of bilateral UE and LE appears grossly intact and equal able to change positions in bed (lateral recumbent to supine and reverse) without assistance or overt difficulty - Psychiatric Exam Psychiatric exam: Anxious Additional comments: difficulty to assess due to shortness of breath, mild anxiety appreciated - Skin Skin Exam: Dry, Intact, Normal Color Additional comments: cool to palpation at distal extremities but good peripheral pulses appreciated in the extremities Results - Vital Signs Recent Vital Signs: Last Vital Signs Temp 98.4 F 06/08/17 12:22 Pulse 119 H 06/08/17 13:22 Resp 30 H 06/08/17 13:22 BP 127/85 06/08/17 12:47 Pulse Ox 98 06/08/17 13:22 - Labs Result Diagrams: 06/08/17 11:38 06/08/17 11:38 Assessment & Plan - Assessment and Plan (Free Text) Assessment: This is a 56 yo M with PMH of HTN, COPD, CAD s/p 4 stents and AICD, CHF with EF 35%, IN, anxiety, depression, polysubstance abuse, and alcohol abuse who presents to [facility] with acutely worsening shortness of breath that began today. He is being admitted for acute shortness of breath, possible pending respiratory failure due to work of breathing, and is accepted to the ICU. Plan: 1) Shortness of breath -COPD exacerbation vs CHF exacerbation vs aspiration PNA, may be multifactorial , likely a component 2/2 medication non-compliance -CXR obtained in ED suggestive of fluid overload consistent with CHF exacerbation -Echo from 03/01/17 EF 35%, moderate dilation with global hypokinesis of -BNP 1800, VBG lactate 4.1 -Trop x1 0.04, trending 2 more q8h -Hx cocaine use, UDS pending -EKGs in ED had significant artifacting, possibly from tachypnea; difficult to interpret, but clearly sinus tachycardic 120's on bedside monitor, repeat EKG in AM -ABG in ED notable for pCO2 32, pO2 124, pH 7.32, HCO3 16.5; more likely metabolic acidosis (2/2 alcohol abuse vs lactic acidosis) with attempted respiratory compensatory alkalosis, pending repeat ABG in AM -BiPAP in ED at 14/7/18/50%, defer to ICU for adjusting settings of Bipap; goal is SaO2 > 90%, avoid over-oxygenation in COPD pt to prevent suppression of respiratory drive -Lasix x20mg I ambulance, another 40mg IVP in ED, will continue with Lasix IVP 40mg q12 -khan in place, strict I's and O's, daily weights -Duonebs q6 lis and q2 prn for COPD exacerbation, received solumedrol 125 IVP x1 in ED, but given ABG findings, more likely CHF etiology than COPD, can hold off on further steroids at this time -covering empircally with Vanco/Cefepime for PNA, pending ID eval and recs, pending blood/sputum/urine cx, pending procal -Cardio (Dr. Cannon) and ID (Dr. Saenz) consulted, appreciate all recs 2) Lactic Acidosis -likely 2/2 respiratory distress and work of breathing vs sepsis -CODE sepsis called in ED, but due to clear fluid overloaded state, no resuscitative fluids given -covering empircally with Vanco/Cefepime for PNA, pending ID eval and recs, pending blood/sputum/urine cx, pending procal 3) Alcohol intoxication -EtOH level in ED 98, hx of chronic alcohol abuse -CIWA protocol, will likely undergo withdrawal -avoid Ativan at this time due to concerns for respiratory status, pending LFTs to see if candidate for librium 4) Hx CAD, HTN -continue ASA and eliquis, holding Beta-block in setting of likely acute CHF exacerbation -holding MUNIR/ARB due to reported low-normal pressures in ED while on Nitro-drip , nitro drip discontinued Dispo: ICU, pending aggressive diuresis, on Bipap, overnight obs of respiratory status, wean to NC as tolerable, getting empiric broad-spectrum abx coverage FEN: HHD, holding IVF due to fluid overload Access: Peripheral IV Consults: Cardio, ICU, ID Ppx: protonix for GI, Eliquis covers for DVT Patient reviewed and discussed with attending, Dr. Diaz Decision To Admit - Pt Status Changed To: Hospital Disposition Of: Inpatient Admission - Admit Certification Admit to Inpatient:: After my assessment, the patient will require hospitalization for at least two midnights. This is because of the severity of symptoms shown, intensity of services needed, and/or the medical risk in this patient being treated as an outpatient. - . Bed Request Type: Critical Care <Leah Diaz - Last Filed: 06/08/17 17:55> Results - Vital Signs Recent Vital Signs: Last Vital Signs Temp 98.4 F 06/08/17 12:22 Pulse 122 H 06/08/17 17:30 Resp 22 06/08/17 17:30 BP 152/91 H 06/08/17 17:24 Pulse Ox 93 L 06/08/17 17:30 - Labs Result Diagrams: 06/08/17 11:38 06/08/17 11:38 Labs: Laboratory Results - last 24 hr 06/08/17 06/08/17 06/08/17 16:57 16:57 17:00 pO2 30 VBG pH 7.09 L* VBG pCO2 59.0 VBG HCO3 17.9 L VBG Total CO2 19.7 L VBG O2 Sat (Calc) 53.3 VBG Base Excess -12.4 L Sodium 129.0 L Chloride 104.0 Glucose 172 H Lactate 3.9 H FiO2 21.0 Total Bilirubin 0.7 Direct Bilirubin 0.4 AST 100 H D ALT 132 H Alkaline Phosphatase 118 Total Protein 7.9 Albumin 4.7 Globulin 3.3 Albumin/Globulin Ratio 1.4 Urine Color Yellow Urine Appearance Sl cloudy Urine pH 5.5 Ur Specific [place] 1.020 Urine Protein Negative Urine Glucose (UA) Negative Urine Ketones Trace H Urine Blood Large H Urine Nitrate Negative Urine Bilirubin Negative Urine Urobilinogen 0.2 Ur Leukocyte Esterase Negative Urine RBC 20 - 25 Urine WBC Negative Attending/Attestation - Attestation I have personally seen and examined this patient.: Yes I have fully participated in the care of the patient.: Yes I have reviewed all pertinent clinical information: Yes Notes (Text): 06/08/17 17:45 attending note; Patient seen and examined with resident in ER. Patient is a 56 year old male with a past medical history significant for CAD, s /p ASHANTI, hypertension, hyperlipidemia , COPD, tobacco and alcohol abuse who presented with shortness of breath and alcohol intoxication. Patient was recently admitted in the hospital for the above problem. Currently patient is in acute systolic CHF. On BiPAP. IV Lasix given. Urine output is increasing. Noncompliance with medication. Alcohol intoxication; complete alcohol cessation is strongly advised. Continue CIWA protocol. Ativan when necessary ordered. COPD; currently on BiPAP. Monitor closely in ICU. Patient was seen and examined with director digital catalogue by the bedside. Active smoking; smoking cessation is strongly advised. Continue DuoNeb treatment. coronary artery disease; continue aspirin. History of apical thrombus; continue Eliquis. Monitor blood pressure closely. Restart beta adelso, Cozaar once blood pressure is stable. Leukocytosis with elevated lactic acid; less likely sepsis. Started on vancomycin and cefepime. Cultures ordered. Monitor closely. Prognosis is poor secondary to continuous smoking history, alcohol abuse and noncompliance with medication. Monitor closely in ICU. Patient is full code. upon discharge The patient will be referred to [facility] clinic. 06/08/17 17:55
[2017-06-08] MEDS: Cefepime 1gm in NS 100ml 1 GM/100 ML BAG IVPB SCH ×2 (15:44→21:09)
[2017-06-08] MEDS: Vancomycin 1gm in NS 250ml 1 GM/250 ML BAG IVPB SCH (16:05)
[2017-06-08 17:02] LABS: VENOUS BLOOD GAS BASE EXCESS -12.4 mmol/L (0.0-2.0); VENOUS BLOOD GAS PO2 30 mm/Hg (30-55)
[2017-06-08 17:08] LABS: VENOUS BLOOD PH 7.09 (7.32-7.43)
[2017-06-08 17:12] LABS: PH,URINE 5.5 (4.7-8.0); URINE BILIRUBIN NEGATIVE (NEGATIVE); URINE BLOOD LARGE (NEGATIVE); URINE GLUCOSE (UA) NEGATIVE (NEGATIVE); URINE LEUKOCYTE ESTERASE NEGATIVE Leu/uL (NEGATIVE); URINE PROTEIN NEGATIVE mg/dL (<30 mg/dL); URINE UROBILINOGEN 0.2 E.U./dL (<1 E.U./dL)
[2017-06-08 17:19] LABS: URINE APPEARANCE SL CLOUDY (CLEAR); URINE COLOR YELLOW (YELLOW)
[2017-06-08 17:20] LABS: ALB/GLOB RATIO 1.4 (1.1-1.8); ALBUMIN 4.7 g/dL (3.0-4.8); BILIRUBIN,DIRECT 0.4 mg/dL (0.0-0.4)
[2017-06-08 17:25] LABS: URINE RBC 20 - 25 /hpf (0-2); URINE WBC NEGATIVE /hpf (0-6)
[2017-06-08] MEDS ORDERED: Piperacillin/Tazobact 3.375 gm 100 ML IVPB SCH (18:00)
[2017-06-08] MEDS ORDERED: Pneumococcal 23-Valent Vaccine IM ONE (20:15)
[2017-06-08 21:03] LABS: BARBITURATES, UR NEGATIVE (NEGATIVE); BENZODIAZEPINES, UR NEGATIVE (NEGATIVE); OPIATES, UR NEGATIVE (NEGATIVE); PHENCYCLIDINE, UR NEGATIVE (NEGATIVE)
--- NOTE | 2017-06-08 21:13 | CARD ---
APPROVED REPORT EKG Measurement Heart [id number] <Conclusion> Sinus tachycardia, frequent PVCs Incomplete left bundle branch block ST & T wave abnormality, consider lateral ischemia Abnormal ECG
--- NOTE | 2017-06-08 23:19 | CON ---
DATE: FOLLOWUP REASON FOR CONSULTATION: Exacerbation of congestive heart failure. HISTORY OF PRESENT ILLNESS: The patient is a 56-year-old male, who has a history of coronary artery disease with history of coronary artery stenting in the past, history of ischemic cardiomyopathy, history of COPD and history of EtOH abuse, who was recently hospitalized at [facility]. The patient presents because of shortness of breath. The patient stated that he ran out of present medications and has not taken them for the past few days. The patient was also drinking and his alcohol level on admission was 98. The patient denies any substernal chest pain. The patient stated that he underwent the ICD placement at [facility] in somewhere over the last year and since then he had no discharge of the defibrillator and is following with the concrete mixing plant laborer at [place] that placed the ICD. SOCIAL HISTORY: The patient is a smoker and drinker. MEDICATIONS: Albuterol inhaler every 6 hours, aspirin 81 mg once a day, Eliquis 5 mg twice a day, folic acid 1 mg once a day, Lasix 40 mg intravenously twice a day, Lopressor 25 mg once a day, Maxipime 1 g intravenously every 12 hours, Tridil infusion and thiamine 100 mg p.o. once a day, vancomycin 1 g intravenously every 12 hours. REVIEW OF SYSTEMS: The patient is experiencing productive cough. He denies fever or chills. PHYSICAL EXAMINATION: GENERAL: The patient is a middle-aged male, who is mildly tachypneic, but does not appear to be in acute distress. VITAL SIGNS: Blood pressure 147/103, heart rate 123, temperature 98.4, respirations 32. HEENT: Normocephalic. NECK: Jugular venous distention is noted. CHEST: Bibasilar coarse crepitations. HEART: S1 and S2 regular. ABDOMEN: Soft. EXTREMITIES: No edema. LABORATORY DATA: Hemoglobin and hematocrit 15.9 and 46.7, white count 12.8, platelet count 207,000. SMA-7: Sodium 145, potassium 3.8, chloride 108, CO2 of 20, glucose 175, BUN 18, creatinine 1.2. Two sets of troponin was 0.04 and 0.05. INR 0.92. Chest x-ray revealed cardiomegaly, CHF, possible bibasilar infiltrate. Echocardiography study performed in 02/2017 revealed dilated left ventricle with severely impaired systolic function, ejection fraction was estimated 35%. The patient had an apical thrombus at that time as well as mild to moderate pulmonary hypertension. ASSESSMENT: 1. Exacerbation of congestive heart failure. 2. Left ventricular apical thrombus. 3. Ethyl alcohol abuse. 4. Noncompliance. 5. Chronic obstructive lung disease. 6. History of coronary artery disease, status post coronary artery stenting in the past to the midcircumflex artery. RECOMMENDATIONS: Continue current aspirin, Eliquis, IV Lasix, Lopressor, IV vancomycin and IV Maxipime. Continue thiamine. Start Cozaar at 25 mg once a day and Aldactone at 25 mg orally once a day. Tyrell Cannon MD
[2017-06-09] MEDS: Vancomycin 1gm in NS 250ml 1 GM/250 ML BAG IVPB SCH ×2 (02:05→14:15)
[2017-06-09] MEDS: Albuterol-Ipratrop 3 mg / 0.5 (3 ml) UD IH SCH ×4 (02:52→20:50)
[2017-06-09 04:22] LABS: BASO # 0.01 K/mm3 (0.0-2.0); BASO % 0.1 % (0.0-3.0); GRAN # 9.57 (1.4-6.5); GRAN % 83.9 % (50.0-68.0); HEMOGLOBIN 14.5 g/dL (14.0-18.0); LYMPH # 0.7 (1.2-3.4); LYMPH % 6.3 % (22.0-35.0); MEAN CELL VOLUME 92.9 fl (80.0-105.0); MEAN CORPUSCULAR HGB CONC 34.4 g/dl (31.0-37.0); MEAN PLATELET VOLUME 10.5 fl (7.0-11.0); MONO # 1.1 (0.1-0.6); MONO % 9.7 % (1.0-6.0); RBC 4.53 10^6/uL (3.5-6.1); RED CELL DISTRIBUTION WIDTH 14.9 % (11.5-14.5); WHITE BLOOD COUNT 11.4 10^3/ul (4.5-11.0)
[2017-06-09 05:04] LABS: TROPONIN I 0.05 ng/mL
[2017-06-09 05:12] LABS: ALB/GLOB RATIO 1.5 (1.1-1.8); ALBUMIN 4.3 g/dL (3.0-4.8); ALT/SGPT 104 U/L (7-56); AST/SGOT 60 U/L (17-59); BLOOD UREA NITROGEN 21 mg/dL (7-21); CALCIUM 8.7 mg/dL (8.4-10.5); GFR AFRICAN-AMERICAN > 60; GFR NON-AFRICAN AMERICAN > 60
--- NOTE | 2017-06-09 08:42 | RAD ---
HISTORY: CHF exac COMPARISON: 06/08/2017. FINDINGS: LUNGS: The lungs are well inflated. There is mild pulmonary venous congestion. No focal consolidation PLEURA: No significant pleural effusion identified, no pneumothorax apparent. CARDIOVASCULAR: The heart is normal in size. There is stable position of left-sided AICD. OSSEOUS STRUCTURES: No significant abnormalities. VISUALIZED UPPER ABDOMEN: Normal. OTHER FINDINGS: None. IMPRESSION: Mild pulmonary venous congestion. No evidence for congestive heart failure.
[2017-06-09] MEDS: Multivitamin With Minerals Tab PO SCH (08:48)
[2017-06-09] MEDS: Meropenem IV 1 gm in NS 50 ML IVPB SCH ×2 (09:03→21:12)
--- NOTE | 2017-06-09 10:48 | CP.CCUPN ---
<Inocente Christiansen - Last Filed: 06/09/17 11:52> CCU Subjective - Physician Review Subjective (Free Text): 06/09/17 10:48 Patient seen and examined at bedside with no acute distress. Patient states he is feeling better than before. Denies shortness of breath, chest pain, palpitations, abdominal pain, cough, nausea, vomiting, diarrhea, fevers, chills. CCU Objective - Vital Signs / Intake & Output Vital Signs (Last 4 hours): Vital Signs Temp Pulse Resp BP Pulse Ox 06/09/17 10:00 113 H 19 116/62 92 L 06/09/17 09:50 114 H 21 93 L 06/09/17 09:40 114 H 16 98 06/09/17 09:30 115 H 15 98 06/09/17 09:20 113 H 16 98 06/09/17 09:10 116 H 16 98 06/09/17 09:02 127/76 06/09/17 09:00 122 H 20 129/76 99 06/09/17 08:50 122 H 99 06/09/17 08:40 113 H 20 97 06/09/17 08:30 117 H 26 H 98 06/09/17 08:20 114 H 20 95 06/09/17 08:10 122 H 34 H 95 06/09/17 08:02 113 H 22 124/72 98 06/09/17 08:00 98.6 F 113 H 19 91 L 06/09/17 07:50 117 H 18 97 06/09/17 07:40 116 H 20 100 06/09/17 07:30 114 H 10 L 97 06/09/17 07:20 115 H 18 98 06/09/17 07:10 101 H 15 97 06/09/17 07:00 112 H 20 140/101 H 97 06/09/17 06:50 103 H 17 97 Intake and Output (Last 8hrs): Intake & Output 06/08/17 06/09/17 06/09/17 22:59 06:59 14:59 Intake Total 350 350 Output Total 950 1650 Balance -600 -1300 Weight 114.759 kg Intake: IV 350 350 Left Antecubital 350 350 Oral 0 Output: Urine 950 1650 Urethral (Boswell) 950 1650 Other: Voiding Method Urinal # Bowel Movements 1 - Physical Exam Head: Positive for: Atraumatic, Normocephalic Pupils: Positive for: PERRL Extroacular Muscles: Positive for: EOMI Conjunctiva: Positive for: Normal Mouth: Positive for: Moist Mucous Membranes Neck: Positive for: Normal Range of Motion Respiratory/Chest: Positive for: Clear to Auscultation, Good Air Exchange. Negative for: Accessory Muscle Use Cardiovascular: Positive for: Regular Rate and Rhythm, Normal S1, S2, Tachycardic. Negative for: Murmurs Abdomen: Positive for: Normal Bowel Sounds. Negative for: Tenderness, Distention, Peritoneal Signs Back: Positive for: Normal Inspection Upper Extremity: Positive for: Normal Inspection. Negative for: Cyanosis, Edema Lower Extremity: Positive for: Edema (trace edema bilaterally). Negative for: CALF TENDERNESS Neurological: Positive for: GCS=15, CN II-XII Intact, Speech Normal Skin: Positive for: Warm, Normal Color, Diaphoretic. Negative for: Rashes Psychiatric: Positive for: Alert, Oriented x 3, Normal Insight, Normal Concentration - Medications Active Medications: Active Medications Generic Name Dose Route Start Last Admin Trade Name Freq PRN Reason Stop Dose Admin Acetaminophen 650 mg 06/08/17 13:20 Tylenol 325mg Tab PO Q6 PRN Pain, moderate (4-7) Albuterol/Ipratropium 3 ml 06/08/17 14:00 06/09/17 07:21 Duoneb 3 Mg/0.5 Mg (3 Ml) Ud IH 3 ml [id number] TU Administration Albuterol/Ipratropium 3 ml 06/08/17 13:28 Duoneb 3 Mg/0.5 Mg (3 Ml) Ud IH Q2H PRN Shortness of Breath Apixaban 5 mg 06/08/17 18:00 06/09/17 09:02 Eliquis PO 5 mg BID TU Administration Protocol Aspirin 81 mg 06/09/17 10:00 06/09/17 09:02 Ecotrin PO 81 mg DAILY TU Administration Chlordiazepoxide 10 mg 06/09/17 10:25 Librium PO Q8 PRN Symptoms of alcohol withdrawl Protocol Doxycycline Hyclate 100 mg 06/09/17 10:00 06/09/17 09:01 Doryx PO 06/18/17 10:01 100 mg Q12 TU Administration Protocol Folic Acid 1 mg 06/09/17 10:00 06/09/17 09:02 Folic Acid PO 1 mg DAILY TU Administration Furosemide 40 mg 06/08/17 22:00 06/09/17 09:02 Lasix IVP 40 mg Q12 TU Administration Nitroglycerin/Dextrose 50 mg in 250 mls @ 1.5 mls/hr 06/08/17 11:26 06/08/17 12:20 Nitroglycerin 50 Mg/250 Ml D5w IV 0 mcg/min .Q24H PRN 0 mls/hr Wheezing Titration Protocol 5 MCG/MIN Vancomycin HCl 1 gm in 250 mls @ 167 mls/hr 06/08/17 13:45 06/09/17 02:05 Vancomycin 1gm IVPB 167 mls/hr Q12H TU Administration Protocol Meropenem 50 mls @ 100 mls/hr 06/09/17 10:00 06/09/17 09:03 Merrem Iv 1 Gm Premix IVPB 06/18/17 10:01 100 mls/hr Q12 TU Administration Protocol Lorazepam 2 mg 06/09/17 08:15 06/09/17 08:46 Ativan IVP 2 mg Q6H TU Administration Protocol Lorazepam 1 mg 06/09/17 08:09 Ativan IVP Q2H PRN Withdrawal Protocol Losartan Potassium 25 mg 06/09/17 10:00 06/09/17 09:02 Cozaar PO 25 mg DAILY TU Administration Metoprolol Tartrate 25 mg 06/08/17 18:00 06/09/17 09:01 Lopressor PO 25 mg BID TU Administration Multivitamins/Minerals 1 tab 06/09/17 08:00 06/09/17 08:48 Therapeutic-M Tab PO 1 tab 0800 TU Administration Spironolactone 25 mg 06/09/17 10:00 06/09/17 09:01 Aldactone PO 25 mg DAILY TU Administration Thiamine HCl 100 mg 06/09/17 10:00 06/09/17 09:01 Vitamin B1 Tab PO 100 mg DAILY TU Administration - Patient Studies Lab Studies: Lab Studies 06/09/17 06/09/17 06/08/17 Range/Units 04:09 04:09 20:37 WBC 11.4 H (4.5-11.0) 10^3/ul RBC 4.53 (3.5-6.1) 10^6/uL Hgb 14.5 (14.0-18.0) g/dL Hct 42.1 (42.0-52.0) % MCV 92.9 (80.0-105.0) fl MCH 32.0 (25.0-35.0) pg MCHC 34.4 (31.0-37.0) g/dl RDW 14.9 H (11.5-14.5) % Plt Count 175 (120.0-450.0) 10^3/uL MPV 10.5 (7.0-11.0) fl Gran % 83.9 H (50.0-68.0) % Lymph % (Auto) 6.3 L (22.0-35.0) % Teller % (Auto) 9.7 H (1.0-6.0) % Eos % (Auto) 0.0 L (1.5-5.0) % Baso % (Auto) 0.1 (0.0-3.0) % Gran # 9.57 H (1.4-6.5) Lymph # (Auto) 0.7 L (1.2-3.4) Teller # (Auto) 1.1 H (0.1-0.6) Eos # (Auto) 0.0 (0.0-0.7) Baso # (Auto) 0.01 (0.0-2.0) K/mm3 pO2 (30-55) mm/Hg VBG pH (7.32-7.43) VBG pCO2 (40-60) VBG HCO3 (21-28) mmol/l VBG Total CO2 (22-28) mmol.L VBG O2 Sat (Calc) (40-65) % VBG Base Excess (0.0-2.0) mmol/L Sodium 148 (132-148) mmol/L Chloride 111 H (98-107) mmol/L Glucose (75-110) mg/dl Lactate (0.7-2.1) mmol/L FiO2 % Potassium 3.9 (3.6-5.0) mmol/L Carbon Dioxide 24 (21-33) mmol/L Anion Gap 17 (10-20) BUN 21 (7-21) mg/dL Creatinine 0.9 (0.8-1.5) mg/dl Est GFR ( Amer) > 60 Est GFR (Non-Af Amer) > 60 Random Glucose 164 H (70-110) mg/dL Calcium 8.7 (8.4-10.5) mg/dL Phosphorus 2.6 (2.5-4.5) mg/dL Magnesium 2.1 (1.7-2.2) mg/dL Total Bilirubin 1.0 (0.2-1.3) mg/dL Direct Bilirubin (0.0-0.4) mg/dL AST 60 H D (17-59) U/L ALT 104 H (7-56) U/L Alkaline Phosphatase 83 (38-126) U/L Troponin I 0.05 ng/mL Total Protein 7.2 (5.8-8.3) g/dL Albumin 4.3 (3.0-4.8) g/dL Globulin 2.9 gm/dL Albumin/Globulin Ratio 1.5 (1.1-1.8) Procalcitonin (0.19-0.49) NG/ML Urine Color (YELLOW) Urine Appearance (CLEAR) Urine pH (4.7-8.0) Ur Specific [place] (1.005-1.035) Urine Protein (<30 mg/dL) mg/dL Urine Glucose (UA) (NEGATIVE) mg/dL Urine Ketones (NEGATIVE) mg/dL Urine Blood (NEGATIVE) Urine Nitrate (NEGATIVE) Urine Bilirubin (NEGATIVE) Urine Urobilinogen (<1 E.U./dL) E.U./dL Ur Leukocyte Esterase (NEGATIVE) Lucy/uL Urine RBC (0-2) /hpf Urine WBC (0-6) /hpf Urine Opiates Screen Negative (NEGATIVE) Urine Methadone Screen Negative (NEGATIVE) Ur Barbiturates Screen Negative (NEGATIVE) Ur Phencyclidine Scrn Negative (NEGATIVE) Ur Amphetamines Screen Negative (NEGATIVE) U Benzodiazepines Scrn Negative (NEGATIVE) U Oth Cocaine Metabols Negative (NEGATIVE) U Cannabinoids Screen Negative (NEGATIVE) 06/08/17 06/08/17 06/08/17 Range/Units 19:50 17:00 16:57 WBC (4.5-11.0) 10^3/ul RBC (3.5-6.1) 10^6/uL Hgb (14.0-18.0) g/dL Hct (42.0-52.0) % MCV (80.0-105.0) fl MCH (25.0-35.0) pg MCHC (31.0-37.0) g/dl RDW (11.5-14.5) % Plt Count (120.0-450.0) 10^3/uL MPV (7.0-11.0) fl Gran % (50.0-68.0) % Lymph % (Auto) (22.0-35.0) % Teller % (Auto) (1.0-6.0) % Eos % (Auto) (1.5-5.0) % Baso % (Auto) (0.0-3.0) % Gran # (1.4-6.5) Lymph # (Auto) (1.2-3.4) Teller # (Auto) (0.1-0.6) Eos # (Auto) (0.0-0.7) Baso # (Auto) (0.0-2.0) K/mm3 pO2 (30-55) mm/Hg VBG pH (7.32-7.43) VBG pCO2 (40-60) VBG HCO3 (21-28) mmol/l VBG Total CO2 (22-28) mmol.L VBG O2 Sat (Calc) (40-65) % VBG Base Excess (0.0-2.0) mmol/L Sodium (132-148) mmol/L Chloride (98-107) mmol/L Glucose (75-110) mg/dl Lactate (0.7-2.1) mmol/L FiO2 % Potassium (3.6-5.0) mmol/L Carbon Dioxide (21-33) mmol/L Anion Gap (10-20) BUN (7-21) mg/dL Creatinine (0.8-1.5) mg/dl Est GFR ( Amer) Est GFR (Non-Af Amer) Random Glucose (70-110) mg/dL Calcium (8.4-10.5) mg/dL Phosphorus (2.5-4.5) mg/dL Magnesium (1.7-2.2) mg/dL Total Bilirubin 0.7 (0.2-1.3) mg/dL Direct Bilirubin 0.4 (0.0-0.4) mg/dL AST 100 H D (17-59) U/L ALT 132 H (7-56) U/L Alkaline Phosphatase 118 (38-126) U/L Troponin I 0.05 D ng/mL Total Protein 7.9 (5.8-8.3) g/dL Albumin 4.7 (3.0-4.8) g/dL Globulin 3.3 gm/dL Albumin/Globulin Ratio 1.4 (1.1-1.8) Procalcitonin (0.19-0.49) NG/ML Urine Color Yellow (YELLOW) Urine Appearance Sl cloudy (CLEAR) Urine pH 5.5 (4.7-8.0) Ur Specific [place] 1.020 (1.005-1.035) Urine Protein Negative (<30 mg/dL) mg/dL Urine Glucose (UA) Negative (NEGATIVE) mg/dL Urine Ketones Trace H (NEGATIVE) mg/dL Urine Blood Large H (NEGATIVE) Urine Nitrate Negative (NEGATIVE) Urine Bilirubin Negative (NEGATIVE) Urine Urobilinogen 0.2 (<1 E.U./dL) E.U./dL Ur Leukocyte Esterase Negative (NEGATIVE) Lucy/uL Urine RBC 20 - 25 (0-2) /hpf Urine WBC Negative (0-6) /hpf Urine Opiates Screen (NEGATIVE) Urine Methadone Screen (NEGATIVE) Ur Barbiturates Screen (NEGATIVE) Ur Phencyclidine Scrn (NEGATIVE) Ur Amphetamines Screen (NEGATIVE) U Benzodiazepines Scrn (NEGATIVE) U Oth Cocaine Metabols (NEGATIVE) U Cannabinoids Screen (NEGATIVE) 06/08/17 06/08/17 Range/Units 16:57 16:57 WBC (4.5-11.0) 10^3/ul RBC (3.5-6.1) 10^6/uL Hgb (14.0-18.0) g/dL Hct (42.0-52.0) % MCV (80.0-105.0) fl MCH (25.0-35.0) pg MCHC (31.0-37.0) g/dl RDW (11.5-14.5) % Plt Count (120.0-450.0) 10^3/uL MPV (7.0-11.0) fl Gran % (50.0-68.0) % Lymph % (Auto) (22.0-35.0) % Teller % (Auto) (1.0-6.0) % Eos % (Auto) (1.5-5.0) % Baso % (Auto) (0.0-3.0) % Gran # (1.4-6.5) Lymph # (Auto) (1.2-3.4) Teller # (Auto) (0.1-0.6) Eos # (Auto) (0.0-0.7) Baso # (Auto) (0.0-2.0) K/mm3 pO2 30 (30-55) mm/Hg VBG pH 7.09 L* (7.32-7.43) VBG pCO2 59.0 (40-60) VBG HCO3 17.9 L (21-28) mmol/l VBG Total CO2 19.7 L (22-28) mmol.L VBG O2 Sat (Calc) 53.3 (40-65) % VBG Base Excess -12.4 L (0.0-2.0) mmol/L Sodium 129.0 L (132-148) mmol/L Chloride 104.0 (98-107) mmol/L Glucose 172 H (75-110) mg/dl Lactate 3.9 H (0.7-2.1) mmol/L FiO2 21.0 % Potassium (3.6-5.0) mmol/L Carbon Dioxide (21-33) mmol/L Anion Gap (10-20) BUN (7-21) mg/dL Creatinine (0.8-1.5) mg/dl Est GFR ( Amer) Est GFR (Non-Af Amer) Random Glucose (70-110) mg/dL Calcium (8.4-10.5) mg/dL Phosphorus (2.5-4.5) mg/dL Magnesium (1.7-2.2) mg/dL Total Bilirubin (0.2-1.3) mg/dL Direct Bilirubin (0.0-0.4) mg/dL AST (17-59) U/L ALT (7-56) U/L Alkaline Phosphatase (38-126) U/L Troponin I ng/mL Total Protein (5.8-8.3) g/dL Albumin (3.0-4.8) g/dL Globulin gm/dL Albumin/Globulin Ratio (1.1-1.8) Procalcitonin < 0.05 L (0.19-0.49) NG/ML Urine Color (YELLOW) Urine Appearance (CLEAR) Urine pH (4.7-8.0) Ur Specific [place] (1.005-1.035) Urine Protein (<30 mg/dL) mg/dL Urine Glucose (UA) (NEGATIVE) mg/dL Urine Ketones (NEGATIVE) mg/dL Urine Blood (NEGATIVE) Urine Nitrate (NEGATIVE) Urine Bilirubin (NEGATIVE) Urine Urobilinogen (<1 E.U./dL) E.U./dL Ur Leukocyte Esterase (NEGATIVE) Lucy/uL Urine RBC (0-2) /hpf Urine WBC (0-6) /hpf Urine Opiates Screen (NEGATIVE) Urine Methadone Screen (NEGATIVE) Ur Barbiturates Screen (NEGATIVE) Ur Phencyclidine Scrn (NEGATIVE) Ur Amphetamines Screen (NEGATIVE) U Benzodiazepines Scrn (NEGATIVE) U Oth Cocaine Metabols (NEGATIVE) U Cannabinoids Screen (NEGATIVE) Laboratory Results - last 24 hr 06/08/17 06/08/17 06/08/17 16:57 16:57 16:57 WBC RBC Hgb Hct MCV MCH MCHC RDW Plt Count MPV Gran % Lymph % (Auto) Teller % (Auto) Eos % (Auto) Baso % (Auto) Gran # Lymph # (Auto) Teller # (Auto) Eos # (Auto) Baso # (Auto) pO2 30 VBG pH 7.09 L* VBG pCO2 59.0 VBG HCO3 17.9 L VBG Total CO2 19.7 L VBG O2 Sat (Calc) 53.3 VBG Base Excess -12.4 L Sodium 129.0 L Chloride 104.0 Glucose 172 H Lactate 3.9 H FiO2 21.0 Potassium Carbon Dioxide Anion Gap BUN Creatinine Est GFR ( Amer) Est GFR (Non-Af Amer) Random Glucose Calcium Phosphorus Magnesium Total Bilirubin 0.7 Direct Bilirubin 0.4 AST 100 H D ALT 132 H Alkaline Phosphatase 118 Troponin I Total Protein 7.9 Albumin 4.7 Globulin 3.3 Albumin/Globulin Ratio 1.4 Procalcitonin < 0.05 L Urine Color Urine Appearance Urine pH Ur Specific [place] Urine Protein Urine Glucose (UA) Urine Ketones Urine Blood Urine Nitrate Urine Bilirubin Urine Urobilinogen Ur Leukocyte Esterase Urine RBC Urine WBC Urine Opiates Screen Urine Methadone Screen Ur Barbiturates Screen Ur Phencyclidine Scrn Ur Amphetamines Screen U Benzodiazepines Scrn U Oth Cocaine Metabols U Cannabinoids Screen 06/08/17 06/08/17 06/08/17 17:00 19:50 20:37 WBC RBC Hgb Hct MCV MCH MCHC RDW Plt Count MPV Gran % Lymph % (Auto) Teller % (Auto) Eos % (Auto) Baso % (Auto) Gran # Lymph # (Auto) Teller # (Auto) Eos # (Auto) Baso # (Auto) pO2 VBG pH VBG pCO2 VBG HCO3 VBG Total CO2 VBG O2 Sat (Calc) VBG Base Excess Sodium Chloride Glucose Lactate FiO2 Potassium Carbon Dioxide Anion Gap BUN Creatinine Est GFR ( Amer) Est GFR (Non-Af Amer) Random Glucose Calcium Phosphorus Magnesium Total Bilirubin Direct Bilirubin AST ALT Alkaline Phosphatase Troponin I 0.05 D Total Protein Albumin Globulin Albumin/Globulin Ratio Procalcitonin Urine Color Yellow Urine Appearance Sl cloudy Urine pH 5.5 Ur Specific [place] 1.020 Urine Protein Negative Urine Glucose (UA) Negative Urine Ketones Trace H Urine Blood Large H Urine Nitrate Negative Urine Bilirubin Negative Urine Urobilinogen 0.2 Ur Leukocyte Esterase Negative Urine RBC 20 - 25 Urine WBC Negative Urine Opiates Screen Negative Urine Methadone Screen Negative Ur Barbiturates Screen Negative Ur Phencyclidine Scrn Negative Ur Amphetamines Screen Negative U Benzodiazepines Scrn Negative U Oth Cocaine Metabols Negative U Cannabinoids Screen Negative 06/09/17 06/09/17 04:09 04:09 WBC 11.4 H RBC 4.53 Hgb 14.5 Hct 42.1 MCV 92.9 MCH 32.0 MCHC 34.4 RDW 14.9 H Plt Count 175 MPV 10.5 Gran % 83.9 H Lymph % (Auto) 6.3 L Teller % (Auto) 9.7 H Eos % (Auto) 0.0 L Baso % (Auto) 0.1 Gran # 9.57 H Lymph # (Auto) 0.7 L Teller # (Auto) 1.1 H Eos # (Auto) 0.0 Baso # (Auto) 0.01 pO2 VBG pH VBG pCO2 VBG HCO3 VBG Total CO2 VBG O2 Sat (Calc) VBG Base Excess Sodium 148 Chloride 111 H Glucose Lactate FiO2 Potassium 3.9 Carbon Dioxide 24 Anion Gap 17 BUN 21 Creatinine 0.9 Est GFR ( Amer) > 60 Est GFR (Non-Af Amer) > 60 Random Glucose 164 H Calcium 8.7 Phosphorus 2.6 Magnesium 2.1 Total Bilirubin 1.0 Direct Bilirubin AST 60 H D ALT 104 H Alkaline Phosphatase 83 Troponin I 0.05 Total Protein 7.2 Albumin 4.3 Globulin 2.9 Albumin/Globulin Ratio 1.5 Procalcitonin Urine Color Urine Appearance Urine pH Ur Specific [place] Urine Protein Urine Glucose (UA) Urine Ketones Urine Blood Urine Nitrate Urine Bilirubin Urine Urobilinogen Ur Leukocyte Esterase Urine RBC Urine WBC Urine Opiates Screen Urine Methadone Screen Ur Barbiturates Screen Ur Phencyclidine Scrn Ur Amphetamines Screen U Benzodiazepines Scrn U Oth Cocaine Metabols U Cannabinoids Screen EKG/Cardiology Studies: Cardiology / EKG Studies 06/09/17 07:00 EKG [ELECTROCARDIOGRAM] DAILY Comment: Reason For Exam: f/u, sinus tachy Review of Systems - EENT Eyes: absent: Change in Vision - Cardiovascular Cardiovascular: absent: Chest Pain, Dyspnea - Respiratory Respiratory: absent: Cough, Dyspnea - Gastrointestinal Gastrointestinal: absent: Abdominal Pain, Diarrhea, Nausea, Vomiting - Genitourinary Genitourinary: UNREMARKABLE. absent: Dysuria - Musculoskeletal Musculoskeletal: UNREMARKABLE. absent: Numbness, Tingling - Neurological Neurological: UNREMARKABLE. absent: Dizziness, Numbness - Psychiatric Psychiatric: absent: Anxiety - Endocrine Endocrine: UNREMARKABLE - Hematologic/Lymphatic Hematologic: UNREMARKABLE Critical Care Progress Note - Nutrition Nutrition: Nutrition Category Date Time Status Heart Healthy Diet [DIET] Diets 06/08/17 Breakfast Ordered Assessment/Plan - Assessment and Plan (Free Text) Assessment: Patient is 56yo male with PMHx of COPD, Systolic CHF, CAD, EtOH abuse, medication non compliance, presenting with complaints of shortness of breath found to be in CHF exacerbation requiring BiPAP. Neuro/Psych -AAO x3 -CIWA -Continue with librium and ativan -Continue with multivitamin, thiamine, folic acid Cardiovascular -Cardiology on consult -MAP>65 -maintain normotensive -I&O and daily weights -Continue with Lopressor, Cozaar, Nitroglycerin , aldactone, eliquis, aspirin, lasix Endocrine -Mantain euglycemia and normothermia Hematologic -Maintain H&H stable -DVT prophylaxis Pulmonary -maintain SpO2 >92% -Continue with storm Infectious disease -ID consulted; continue with Merrem, doxycycline, and vancomycin -Follow up with blood culture, sputum culture, urine culture, and MRSA screen Gastrointestinal -Heart healthy diet -GI prophylaxis Renal -I&O -Maintain euvolemia Dispo: transfer to telemetry <Charly Garcia - Last Filed: 06/09/17 12:00> CCU Objective - Vital Signs / Intake & Output Vital Signs (Last 4 hours): Vital Signs Temp Pulse Resp BP Pulse Ox 06/09/17 11:09 98.8 F 06/09/17 11:00 113 H 16 120/65 98 06/09/17 10:50 117 H 17 96 06/09/17 10:40 114 H 19 99 06/09/17 10:30 117 H 22 98 06/09/17 10:20 128 H 28 H 98 06/09/17 10:10 114 H 20 94 L 06/09/17 10:00 113 H 19 116/62 92 L 06/09/17 09:50 114 H 21 93 L 06/09/17 09:40 114 H 16 98 06/09/17 09:30 115 H 15 98 06/09/17 09:20 113 H 16 98 06/09/17 09:10 116 H 16 98 06/09/17 09:02 127/76 06/09/17 09:00 122 H 20 129/76 99 06/09/17 08:50 122 H 99 06/09/17 08:40 113 H 20 97 06/09/17 08:30 117 H 26 H 98 06/09/17 08:20 114 H 20 95 06/09/17 08:10 122 H 34 H 95 06/09/17 08:02 113 H 22 124/72 98 06/09/17 08:00 98.6 F 113 H 19 91 L Intake and Output (Last 8hrs): Intake & Output 06/08/17 06/09/17 06/09/17 22:59 06:59 14:59 Intake Total 350 350 Output Total 950 1650 Balance -600 -1300 Weight 253 lb 253 lb Intake: IV 350 350 Left Antecubital 350 350 Oral 0 Output: Urine 950 1650 Urethral (Boswell) 950 1650 Other: Voiding Method Urinal # Bowel Movements 1 - Medications Active Medications: Active Medications Generic Name Dose Route Start Last Admin Trade Name Freq PRN Reason Stop Dose Admin Acetaminophen 650 mg 06/08/17 13:20 Tylenol 325mg Tab PO Q6 PRN Pain, moderate (4-7) Albuterol/Ipratropium 3 ml 06/08/17 14:00 06/09/17 07:21 Duoneb 3 Mg/0.5 Mg (3 Ml) Ud IH 3 ml [id number] TU Administration Albuterol/Ipratropium 3 ml 06/08/17 13:28 Duoneb 3 Mg/0.5 Mg (3 Ml) Ud IH Q2H PRN Shortness of Breath Apixaban 5 mg 06/08/17 18:00 06/09/17 09:02 Eliquis PO 5 mg BID TU Administration Protocol Aspirin 81 mg 06/09/17 10:00 06/09/17 09:02 Ecotrin PO 81 mg DAILY TU Administration Chlordiazepoxide 50 mg 06/09/17 14:00 Librium PO Q8 TU Doxycycline Hyclate 100 mg 06/09/17 10:00 06/09/17 09:01 Doryx PO 06/18/17 10:01 100 mg Q12 TU Administration Protocol Folic Acid 1 mg 06/09/17 10:00 06/09/17 09:02 Folic Acid PO 1 mg DAILY TU Administration Furosemide 40 mg 06/08/17 22:00 06/09/17 09:02 Lasix IVP 40 mg Q12 TU Administration Nitroglycerin/Dextrose 50 mg in 250 mls @ 1.5 mls/hr 06/08/17 11:26 06/08/17 12:20 Nitroglycerin 50 Mg/250 Ml D5w IV 0 mcg/min .Q24H PRN 0 mls/hr Wheezing Titration Protocol 5 MCG/MIN Vancomycin HCl 1 gm in 250 mls @ 167 mls/hr 06/08/17 13:45 06/09/17 02:05 Vancomycin 1gm IVPB 167 mls/hr Q12H TU Administration Protocol Meropenem 50 mls @ 100 mls/hr 06/09/17 10:00 06/09/17 09:03 Merrem Iv 1 Gm Premix IVPB 06/18/17 10:01 100 mls/hr Q12 TU Administration Protocol Lorazepam 2 mg 06/09/17 08:15 06/09/17 08:46 Ativan IVP 2 mg Q6H TU Administration Protocol Lorazepam 1 mg 06/09/17 08:09 Ativan IVP Q2H PRN Withdrawal Protocol Losartan Potassium 25 mg 06/09/17 10:00 06/09/17 09:02 Cozaar PO 25 mg DAILY TU Administration Metoprolol Tartrate 25 mg 06/08/17 18:00 06/09/17 09:01 Lopressor PO 25 mg BID TU Administration Multivitamins/Minerals 1 tab 06/09/17 08:00 06/09/17 08:48 Therapeutic-M Tab PO 1 tab 0800 TU Administration Spironolactone 25 mg 06/09/17 10:00 06/09/17 09:01 Aldactone PO 25 mg DAILY TU Administration Thiamine HCl 100 mg 06/09/17 10:00 06/09/17 09:01 Vitamin B1 Tab PO 100 mg DAILY TU Administration - Patient Studies Lab Studies: Lab Studies 06/09/17 06/09/17 06/08/17 Range/Units 04:09 04:09 20:37 WBC 11.4 H (4.5-11.0) 10^3/ul RBC 4.53 (3.5-6.1) 10^6/uL Hgb 14.5 (14.0-18.0) g/dL Hct 42.1 (42.0-52.0) % MCV 92.9 (80.0-105.0) fl MCH 32.0 (25.0-35.0) pg MCHC 34.4 (31.0-37.0) g/dl RDW 14.9 H (11.5-14.5) % Plt Count 175 (120.0-450.0) 10^3/uL MPV 10.5 (7.0-11.0) fl Gran % 83.9 H (50.0-68.0) % Lymph % (Auto) 6.3 L (22.0-35.0) % Teller % (Auto) 9.7 H (1.0-6.0) % Eos % (Auto) 0.0 L (1.5-5.0) % Baso % (Auto) 0.1 (0.0-3.0) % Gran # 9.57 H (1.4-6.5) Lymph # (Auto) 0.7 L (1.2-3.4) Teller # (Auto) 1.1 H (0.1-0.6) Eos # (Auto) 0.0 (0.0-0.7) Baso # (Auto) 0.01 (0.0-2.0) K/mm3 pO2 (30-55) mm/Hg VBG pH (7.32-7.43) VBG pCO2 (40-60) VBG HCO3 (21-28) mmol/l VBG Total CO2 (22-28) mmol.L VBG O2 Sat (Calc) (40-65) % VBG Base Excess (0.0-2.0) mmol/L Sodium 148 (132-148) mmol/L Chloride 111 H (98-107) mmol/L Glucose (75-110) mg/dl Lactate (0.7-2.1) mmol/L FiO2 % Potassium 3.9 (3.6-5.0) mmol/L Carbon Dioxide 24 (21-33) mmol/L Anion Gap 17 (10-20) BUN 21 (7-21) mg/dL Creatinine 0.9 (0.8-1.5) mg/dl Est GFR ( Amer) > 60 Est GFR (Non-Af Amer) > 60 Random Glucose 164 H (70-110) mg/dL Calcium 8.7 (8.4-10.5) mg/dL Phosphorus 2.6 (2.5-4.5) mg/dL Magnesium 2.1 (1.7-2.2) mg/dL Total Bilirubin 1.0 (0.2-1.3) mg/dL Direct Bilirubin (0.0-0.4) mg/dL AST 60 H D (17-59) U/L ALT 104 H (7-56) U/L Alkaline Phosphatase 83 (38-126) U/L Troponin I 0.05 ng/mL Total Protein 7.2 (5.8-8.3) g/dL Albumin 4.3 (3.0-4.8) g/dL Globulin 2.9 gm/dL Albumin/Globulin Ratio 1.5 (1.1-1.8) Procalcitonin (0.19-0.49) NG/ML Urine Color (YELLOW) Urine Appearance (CLEAR) Urine pH (4.7-8.0) Ur Specific [place] (1.005-1.035) Urine Protein (<30 mg/dL) mg/dL Urine Glucose (UA) (NEGATIVE) mg/dL Urine Ketones (NEGATIVE) mg/dL Urine Blood (NEGATIVE) Urine Nitrate (NEGATIVE) Urine Bilirubin (NEGATIVE) Urine Urobilinogen (<1 E.U./dL) E.U./dL Ur Leukocyte Esterase (NEGATIVE) Lucy/uL Urine RBC (0-2) /hpf Urine WBC (0-6) /hpf Urine Opiates Screen Negative (NEGATIVE) Urine Methadone Screen Negative (NEGATIVE) Ur Barbiturates Screen Negative (NEGATIVE) Ur Phencyclidine Scrn Negative (NEGATIVE) Ur Amphetamines Screen Negative (NEGATIVE) U Benzodiazepines Scrn Negative (NEGATIVE) U Oth Cocaine Metabols Negative (NEGATIVE) U Cannabinoids Screen Negative (NEGATIVE) 06/08/17 06/08/17 06/08/17 Range/Units 19:50 17:00 16:57 WBC (4.5-11.0) 10^3/ul RBC (3.5-6.1) 10^6/uL Hgb (14.0-18.0) g/dL Hct (42.0-52.0) % MCV (80.0-105.0) fl MCH (25.0-35.0) pg MCHC (31.0-37.0) g/dl RDW (11.5-14.5) % Plt Count (120.0-450.0) 10^3/uL MPV (7.0-11.0) fl Gran % (50.0-68.0) % Lymph % (Auto) (22.0-35.0) % Teller % (Auto) (1.0-6.0) % Eos % (Auto) (1.5-5.0) % Baso % (Auto) (0.0-3.0) % Gran # (1.4-6.5) Lymph # (Auto) (1.2-3.4) Teller # (Auto) (0.1-0.6) Eos # (Auto) (0.0-0.7) Baso # (Auto) (0.0-2.0) K/mm3 pO2 (30-55) mm/Hg VBG pH (7.32-7.43) VBG pCO2 (40-60) VBG HCO3 (21-28) mmol/l VBG Total CO2 (22-28) mmol.L VBG O2 Sat (Calc) (40-65) % VBG Base Excess (0.0-2.0) mmol/L Sodium (132-148) mmol/L Chloride (98-107) mmol/L Glucose (75-110) mg/dl Lactate (0.7-2.1) mmol/L FiO2 % Potassium (3.6-5.0) mmol/L Carbon Dioxide (21-33) mmol/L Anion Gap (10-20) BUN (7-21) mg/dL Creatinine (0.8-1.5) mg/dl Est GFR ( Amer) Est GFR (Non-Af Amer) Random Glucose (70-110) mg/dL Calcium (8.4-10.5) mg/dL Phosphorus (2.5-4.5) mg/dL Magnesium (1.7-2.2) mg/dL Total Bilirubin 0.7 (0.2-1.3) mg/dL Direct Bilirubin 0.4 (0.0-0.4) mg/dL AST 100 H D (17-59) U/L ALT 132 H (7-56) U/L Alkaline Phosphatase 118 (38-126) U/L Troponin I 0.05 D ng/mL Total Protein 7.9 (5.8-8.3) g/dL Albumin 4.7 (3.0-4.8) g/dL Globulin 3.3 gm/dL Albumin/Globulin Ratio 1.4 (1.1-1.8) Procalcitonin (0.19-0.49) NG/ML Urine Color Yellow (YELLOW) Urine Appearance Sl cloudy (CLEAR) Urine pH 5.5 (4.7-8.0) Ur Specific [place] 1.020 (1.005-1.035) Urine Protein Negative (<30 mg/dL) mg/dL Urine Glucose (UA) Negative (NEGATIVE) mg/dL Urine Ketones Trace H (NEGATIVE) mg/dL Urine Blood Large H (NEGATIVE) Urine Nitrate Negative (NEGATIVE) Urine Bilirubin Negative (NEGATIVE) Urine Urobilinogen 0.2 (<1 E.U./dL) E.U./dL Ur Leukocyte Esterase Negative (NEGATIVE) Lucy/uL Urine RBC 20 - 25 (0-2) /hpf Urine WBC Negative (0-6) /hpf Urine Opiates Screen (NEGATIVE) Urine Methadone Screen (NEGATIVE) Ur Barbiturates Screen (NEGATIVE) Ur Phencyclidine Scrn (NEGATIVE) Ur Amphetamines Screen (NEGATIVE) U Benzodiazepines Scrn (NEGATIVE) U Oth Cocaine Metabols (NEGATIVE) U Cannabinoids Screen (NEGATIVE) 06/08/17 06/08/17 Range/Units 16:57 16:57 WBC (4.5-11.0) 10^3/ul RBC (3.5-6.1) 10^6/uL Hgb (14.0-18.0) g/dL Hct (42.0-52.0) % MCV (80.0-105.0) fl MCH (25.0-35.0) pg MCHC (31.0-37.0) g/dl RDW (11.5-14.5) % Plt Count (120.0-450.0) 10^3/uL MPV (7.0-11.0) fl Gran % (50.0-68.0) % Lymph % (Auto) (22.0-35.0) % Teller % (Auto) (1.0-6.0) % Eos % (Auto) (1.5-5.0) % Baso % (Auto) (0.0-3.0) % Gran # (1.4-6.5) Lymph # (Auto) (1.2-3.4) Teller # (Auto) (0.1-0.6) Eos # (Auto) (0.0-0.7) Baso # (Auto) (0.0-2.0) K/mm3 pO2 30 (30-55) mm/Hg VBG pH 7.09 L* (7.32-7.43) VBG pCO2 59.0 (40-60) VBG HCO3 17.9 L (21-28) mmol/l VBG Total CO2 19.7 L (22-28) mmol.L VBG O2 Sat (Calc) 53.3 (40-65) % VBG Base Excess -12.4 L (0.0-2.0) mmol/L Sodium 129.0 L (132-148) mmol/L Chloride 104.0 (98-107) mmol/L Glucose 172 H (75-110) mg/dl Lactate 3.9 H (0.7-2.1) mmol/L FiO2 21.0 % Potassium (3.6-5.0) mmol/L Carbon Dioxide (21-33) mmol/L Anion Gap (10-20) BUN (7-21) mg/dL Creatinine (0.8-1.5) mg/dl Est GFR ( Amer) Est GFR (Non-Af Amer) Random Glucose (70-110) mg/dL Calcium (8.4-10.5) mg/dL Phosphorus (2.5-4.5) mg/dL Magnesium (1.7-2.2) mg/dL Total Bilirubin (0.2-1.3) mg/dL Direct Bilirubin (0.0-0.4) mg/dL AST (17-59) U/L ALT (7-56) U/L Alkaline Phosphatase (38-126) U/L Troponin I ng/mL Total Protein (5.8-8.3) g/dL Albumin (3.0-4.8) g/dL Globulin gm/dL Albumin/Globulin Ratio (1.1-1.8) Procalcitonin < 0.05 L (0.19-0.49) NG/ML Urine Color (YELLOW) Urine Appearance (CLEAR) Urine pH (4.7-8.0) Ur Specific [place] (1.005-1.035) Urine Protein (<30 mg/dL) mg/dL Urine Glucose (UA) (NEGATIVE) mg/dL Urine Ketones (NEGATIVE) mg/dL Urine Blood (NEGATIVE) Urine Nitrate (NEGATIVE) Urine Bilirubin (NEGATIVE) Urine Urobilinogen (<1 E.U./dL) E.U./dL Ur Leukocyte Esterase (NEGATIVE) Lucy/uL Urine RBC (0-2) /hpf Urine WBC (0-6) /hpf Urine Opiates Screen (NEGATIVE) Urine Methadone Screen (NEGATIVE) Ur Barbiturates Screen (NEGATIVE) Ur Phencyclidine Scrn (NEGATIVE) Ur Amphetamines Screen (NEGATIVE) U Benzodiazepines Scrn (NEGATIVE) U Oth Cocaine Metabols (NEGATIVE) U Cannabinoids Screen (NEGATIVE) Laboratory Results - last 24 hr 06/08/17 06/08/17 06/08/17 16:57 16:57 16:57 WBC RBC Hgb Hct MCV MCH MCHC RDW Plt Count MPV Gran % Lymph % (Auto) Teller % (Auto) Eos % (Auto) Baso % (Auto) Gran # Lymph # (Auto) Teller # (Auto) Eos # (Auto) Baso # (Auto) pO2 30 VBG pH 7.09 L* VBG pCO2 59.0 VBG HCO3 17.9 L VBG Total CO2 19.7 L VBG O2 Sat (Calc) 53.3 VBG Base Excess -12.4 L Sodium 129.0 L Chloride 104.0 Glucose 172 H Lactate 3.9 H FiO2 21.0 Potassium Carbon Dioxide Anion Gap BUN Creatinine Est GFR ( Amer) Est GFR (Non-Af Amer) Random Glucose Calcium Phosphorus Magnesium Total Bilirubin 0.7 Direct Bilirubin 0.4 AST 100 H D ALT 132 H Alkaline Phosphatase 118 Troponin I Total Protein 7.9 Albumin 4.7 Globulin 3.3 Albumin/Globulin Ratio 1.4 Procalcitonin < 0.05 L Urine Color Urine Appearance Urine pH Ur Specific [place] Urine Protein Urine Glucose (UA) Urine Ketones Urine Blood Urine Nitrate Urine Bilirubin Urine Urobilinogen Ur Leukocyte Esterase Urine RBC Urine WBC Urine Opiates Screen Urine Methadone Screen Ur Barbiturates Screen Ur Phencyclidine Scrn Ur Amphetamines Screen U Benzodiazepines Scrn U Oth Cocaine Metabols U Cannabinoids Screen 06/08/17 06/08/17 06/08/17 17:00 19:50 20:37 WBC RBC Hgb Hct MCV MCH MCHC RDW Plt Count MPV Gran % Lymph % (Auto) Teller % (Auto) Eos % (Auto) Baso % (Auto) Gran # Lymph # (Auto) Teller # (Auto) Eos # (Auto) Baso # (Auto) pO2 VBG pH VBG pCO2 VBG HCO3 VBG Total CO2 VBG O2 Sat (Calc) VBG Base Excess Sodium Chloride Glucose Lactate FiO2 Potassium Carbon Dioxide Anion Gap BUN Creatinine Est GFR ( Amer) Est GFR (Non-Af Amer) Random Glucose Calcium Phosphorus Magnesium Total Bilirubin Direct Bilirubin AST ALT Alkaline Phosphatase Troponin I 0.05 D Total Protein Albumin Globulin Albumin/Globulin Ratio Procalcitonin Urine Color Yellow Urine Appearance Sl cloudy Urine pH 5.5 Ur Specific [place] 1.020 Urine Protein Negative Urine Glucose (UA) Negative Urine Ketones Trace H Urine Blood Large H Urine Nitrate Negative Urine Bilirubin Negative Urine Urobilinogen 0.2 Ur Leukocyte Esterase Negative Urine RBC 20 - 25 Urine WBC Negative Urine Opiates Screen Negative Urine Methadone Screen Negative Ur Barbiturates Screen Negative Ur Phencyclidine Scrn Negative Ur Amphetamines Screen Negative U Benzodiazepines Scrn Negative U Oth Cocaine Metabols Negative U Cannabinoids Screen Negative 06/09/17 06/09/17 04:09 04:09 WBC 11.4 H RBC 4.53 Hgb 14.5 Hct 42.1 MCV 92.9 MCH 32.0 MCHC 34.4 RDW 14.9 H Plt Count 175 MPV 10.5 Gran % 83.9 H Lymph % (Auto) 6.3 L Teller % (Auto) 9.7 H Eos % (Auto) 0.0 L Baso % (Auto) 0.1 Gran # 9.57 H Lymph # (Auto) 0.7 L Teller # (Auto) 1.1 H Eos # (Auto) 0.0 Baso # (Auto) 0.01 pO2 VBG pH VBG pCO2 VBG HCO3 VBG Total CO2 VBG O2 Sat (Calc) VBG Base Excess Sodium 148 Chloride 111 H Glucose Lactate FiO2 Potassium 3.9 Carbon Dioxide 24 Anion Gap 17 BUN 21 Creatinine 0.9 Est GFR ( Amer) > 60 Est GFR (Non-Af Amer) > 60 Random Glucose 164 H Calcium 8.7 Phosphorus 2.6 Magnesium 2.1 Total Bilirubin 1.0 Direct Bilirubin AST 60 H D ALT 104 H Alkaline Phosphatase 83 Troponin I 0.05 Total Protein 7.2 Albumin 4.3 Globulin 2.9 Albumin/Globulin Ratio 1.5 Procalcitonin Urine Color Urine Appearance Urine pH Ur Specific [place] Urine Protein Urine Glucose (UA) Urine Ketones Urine Blood Urine Nitrate Urine Bilirubin Urine Urobilinogen Ur Leukocyte Esterase Urine RBC Urine WBC Urine Opiates Screen Urine Methadone Screen Ur Barbiturates Screen Ur Phencyclidine Scrn Ur Amphetamines Screen U Benzodiazepines Scrn U Oth Cocaine Metabols U Cannabinoids Screen EKG/Cardiology Studies: Cardiology / EKG Studies 06/09/17 07:00 EKG [ELECTROCARDIOGRAM] DAILY Comment: Reason For Exam: f/u, sinus tachy Critical Care Progress Note - Nutrition Nutrition: Nutrition Category Date Time Status Heart Healthy Diet [DIET] Diets 06/08/17 Breakfast Ordered Assessment/Plan - Assessment and Plan (Free Text) Assessment: patient seen and examined on rounds with resident, agree with note with following additions/exceptions; 56yo male with PMhx of Etoh abuse, Afib on Eliquis, CHF systolic, a/w SOB, acute CHF exacerbation, EtOH withdrawal Currently afebrile, HD stable, comfortable on 2LNC, OFF BIPAP, doing well. On [facility] protocol. CHF exacerbation, acute systolic decompensated SOB Volume overload EtOH withdrawal CAD Tachycardia, Sinus Recommend: - supp o2 as needed, BIPAP as needed, and at night 12/5/40% - panculture, UCx, BCx, Proca, Sputum Culture - would DC Abx - Lopressor 25mg BID - Lasix 40mg PO BID - Spironolactone/ARB - daily I/Os, weights - cardiology eval - FS control - Thiamine, Folic Acid, MVT - monitor for EtOH withdrawal, [facility] protocol - GI ppx - DVT ppx - stable, transfer to telemetry Critical care time 35 minutes
--- NOTE | 2017-06-09 13:39 | CARD ---
APPROVED REPORT EKG Measurement Heart [id number] <Conclusion> Sinus tachycardia with occasional premature ventricular complexes Possible Left atrial enlargement Nonspecific intraventricular conduction delay Nonspecific T wave abnormality Abnormal ECG
--- NOTE | 2017-06-09 16:03 | CP.PCM.PN ---
<Vitor Ludwig - Last Filed: 06/09/17 15:48> Subjective - Date & Time of Evaluation Date of Evaluation: 06/09/17 Time of Evaluation: 07:40 - Subjective Subjective: IM Progress Note for Hospitalist Service Patient seen and examined at bedside in the ICU. Was weaned from Bipap to NC O2 yesterday evening, no acute events reported overnight. Today, patient reports breathing feels much better, but he is still not feeling great due to alcohol withdrawal. Admits to have shakes (clearly visible on exam), and general malaise, and reports improved but still somewhat productive cough ( reports brownish sputum overnight); denies chest pain, dyspnea, shortness of breath at rest, emesis, diarrhea, dysuria, focal weakness. Not appreciably dyspnic with speech. Objective - Vital Signs/Intake and Output Vital Signs (last 24 hours): Temp Pulse Resp BP Pulse Ox 98.8 F 105 H 15 116/68 97 06/09/17 11:09 06/09/17 13:32 06/09/17 13:10 06/09/17 13:00 06/09/17 13:10 Intake and Output: 06/09/17 06/09/17 06:59 18:59 Intake Total 350 Output Total 1650 Balance -1300 - Medications Medications: Current Medications Acetaminophen (Tylenol 325mg Tab) 650 mg PO Q6 PRN PRN Reason: Pain, moderate (4-7) Albuterol/Ipratropium (Duoneb 3 Mg/0.5 Mg (3 Ml) Ud) 3 ml IH [id number] [facility] Last Admin: 06/09/17 13:29 Dose: 3 ml Albuterol/Ipratropium (Duoneb 3 Mg/0.5 Mg (3 Ml) Ud) 3 ml IH Q2H PRN PRN Reason: Shortness of Breath Apixaban (Eliquis) 5 mg PO BID [facility] PRN Reason: Protocol Last Admin: 06/09/17 09:02 Dose: 5 mg Aspirin (Ecotrin) 81 mg PO DAILY [facility] Last Admin: 06/09/17 09:02 Dose: 81 mg Chlordiazepoxide (Librium) 50 mg PO Q8 [facility] Last Admin: 06/09/17 13:30 Dose: Not Given Doxycycline Hyclate (Doryx) 100 mg PO Q12 [facility] PRN Reason: Protocol Stop: 06/18/17 10:01 Last Admin: 06/09/17 09:01 Dose: 100 mg Folic Acid (Folic Acid) 1 mg PO DAILY [facility] Last Admin: 06/09/17 09:02 Dose: 1 mg Furosemide (Lasix) 40 mg IVP Q12 [facility] Last Admin: 06/09/17 09:02 Dose: 40 mg Nitroglycerin/Dextrose (Nitroglycerin 50 Mg/250 Ml D5w) 50 mg in 250 mls @ 1.5 mls/hr IV .Q24H PRN; Protocol; 5 MCG/MIN PRN Reason: Wheezing Last Titration: 06/08/17 12:20 Dose: 0 mcg/min, 0 mls/hr Vancomycin HCl (Vancomycin 1gm) 1 gm in 250 mls @ 167 mls/hr IVPB Q12H [facility] PRN Reason: Protocol Last Admin: 06/09/17 02:05 Dose: 167 mls/hr Meropenem (Merrem Iv 1 Gm Premix) 50 mls @ 100 mls/hr IVPB Q12 [facility] PRN Reason: Protocol Stop: 06/18/17 10:01 Last Admin: 06/09/17 09:03 Dose: 100 mls/hr Lorazepam (Ativan) 2 mg IVP Q6H [facility] PRN Reason: Protocol Last Admin: 06/09/17 13:29 Dose: 2 mg Lorazepam (Ativan) 1 mg IVP Q2H PRN; Protocol PRN Reason: Withdrawal Losartan Potassium (Cozaar) 25 mg PO DAILY [facility] Last Admin: 06/09/17 09:02 Dose: 25 mg Metoprolol Tartrate (Lopressor) 25 mg PO BID [facility] Last Admin: 06/09/17 09:01 Dose: 25 mg Multivitamins/Minerals (Therapeutic-M Tab) 1 tab PO 0800 [facility] Last Admin: 06/09/17 08:48 Dose: 1 tab Spironolactone (Aldactone) 25 mg PO DAILY [facility] Last Admin: 06/09/17 09:01 Dose: 25 mg Thiamine HCl (Vitamin B1 Tab) 100 mg PO DAILY [facility] Last Admin: 06/09/17 09:01 Dose: 100 mg - Labs Labs: 06/09/17 04:09 06/09/17 04:09 PT 10.6 SECONDS (9.4-12.5) 06/08/17 11:38 INR 0.92 (0.93-1.08) L 06/08/17 11:38 APTT 31.3 Seconds (25.1-36.5) 06/08/17 11:38 - Additional Findings Additional findings: - Constitutional Appears: Non-toxic, No Acute Distress, Chronically Ill, Grossly tremulous at rest and with movement - Head Exam Head Exam: ATRAUMATIC, NORMAL INSPECTION, NORMOCEPHALIC - Eye Exam Eye Exam: EOMI, Normal appearance. absent: Conjunctival injection, Scleral icterus Pupil Exam: absent: Irregular, Unequal - ENT Exam ENT Exam: Mucous Membranes Moist - Neck Exam Neck exam: Positive for: Full Rom. Negative for: Lymphadenopathy, Thyromegaly - Respiratory Exam Respiratory Exam: absent: Clear to Auscultation Bilateral, NORMAL BREATHING PATTERN improved breath sounds in all walker, mild crackles at bilateral bases only no accessory muscle use or abdominal breathing no dyspnea with speech - Cardiovascular Exam Cardiovascular Exam: Tachycardia, REGULAR RHYTHM, +S1, +S2. absent: JVD - GI/Abdominal Exam GI & Abdominal Exam: Normal Bowel Sounds, Soft. absent: Distended (protuberant belly, but no palpable masses or appreciable fluid wave), Rigid, Firm, Tenderness - Extremities Exam Extremities exam: Positive for: normal capillary refill, pedal edema (+1 pitting in bilateral LE from ankle to bottom 1/3rd of shins). Negative for: calf tenderness, joint swelling, tenderness - Neurological Exam awake and alert, following all commands appropriately, moving all extremities spontaneously motor grossly intact and equal grossly tremulous at rest and with movement - Psychiatric Exam Psychiatric exam: normal mood and affect - Skin Skin Exam: Dry, Intact, Normal Color Assessment and Plan - Assessment and Plan (Free Text) Assessment: This is a 56 yo M with PMH of HTN, COPD, CAD s/p 4 stents and AICD, CHF with EF 35%, UT, anxiety, depression, polysubstance abuse, and alcohol abuse who presents to [facility] with acutely worsening shortness of breath that began today. He was admitted for acute shortness of breath, possible pending respiratory failure; his breathing and O2 saturations have improved, and he is pending transfer to telemetry from ICU. He remains for treatment of alcohol withdrawal. Plan: 1) Shortness of breath - Improved -COPD exacerbation vs CHF exacerbation vs aspiration PNA, may be multifactorial , likely a component 2/2 medication non-compliance -CXR obtained in ED suggestive of fluid overload consistent with CHF exacerbation -Echo from 03/01/17 EF 35%, moderate dilation with global hypokinesis of -BNP 1800; VBG lactate 4.1, 3.9 on repeat -Trops 0.04, 0.05, 0.05 -Hx cocaine use but UDS negative, alcohol level 98 -EKG this AM notable for Sinus tachy with occasional PVCs, Possible Left atrial enlargement, Nonspecific intraventricular conduction delay, and Nonspecific T wave abnormality -ABG in ED notable for pCO2 32, pO2 124, pH 7.32, HCO3 16.5; more likely metabolic acidosis (2/2 alcohol abuse vs lactic acidosis) with attempted respiratory compensatory alkalosis -now on 2L NC O2, satting well, continue to monitor -continue Lasix 40mg IVP q12 -khan in place, strict I's and O's, daily weights -Duonebs q6 lis and q2 prn for COPD exacerbation, -pending blood/sputum/urine cx, procal < 0.05; as per ID continue on Doxy/Merrem /Vanco -Cardio (Dr. Cannon) consulted, appreciate all recs; continue ASA/Eliquis/ Lasix, continue IVP lopressor, started Cozaar and Aldactone 2) Lactic Acidosis -improving -likely 2/2 respiratory distress and work of breathing vs sepsis -CODE sepsis called in ED, but due to clear fluid overloaded state, no resuscitative fluids given -covering with Vanco/Doxy/Merrem 3) Alcohol withdrawal -EtOH level in ED 98, hx of chronic alcohol abuse -CIWA protocol -now safe for Ativan, would avoid Librium as LFTs still elevated; Ativan 1q2 IV prn and 2q6 IV scd ordered 4) Hx CAD, HTN -continue ASA and eliquis, cleared to start on B-adelso as per cardio -Cozaar restarted as per Cardio Dispo: ICU pending transfer to [facility], tx for alcohol withdrawal, receiving empiric IV abx as above FEN: HHD Access: Peripheral IV Consults: Cardio, ICU, ID Ppx: protonix for GI, Eliquis covers for DVT Patient reviewed and discussed with attending, Dr. Diaz <Leah Diaz - Last Filed: 06/09/17 18:51> Objective - Vital Signs/Intake and Output Vital Signs (last 24 hours): Temp Pulse Resp BP Pulse Ox 98.9 F 105 H 41 H 126/78 98 06/09/17 16:00 06/09/17 17:03 06/09/17 16:40 06/09/17 17:03 06/09/17 16:40 Intake and Output: 06/09/17 06/09/17 06:59 18:59 Intake Total 350 Output Total 1650 Balance -1300 - Medications Medications: Current Medications Acetaminophen (Tylenol 325mg Tab) 650 mg PO Q6 PRN PRN Reason: Pain, moderate (4-7) Albuterol/Ipratropium (Duoneb 3 Mg/0.5 Mg (3 Ml) Ud) 3 ml IH [id number] [facility] Last Admin: 06/09/17 13:29 Dose: 3 ml Albuterol/Ipratropium (Duoneb 3 Mg/0.5 Mg (3 Ml) Ud) 3 ml IH Q2H PRN PRN Reason: Shortness of Breath Apixaban (Eliquis) 5 mg PO BID [facility] PRN Reason: Protocol Last Admin: 06/09/17 17:03 Dose: 5 mg Aspirin (Ecotrin) 81 mg PO DAILY [facility] Last Admin: 06/09/17 09:02 Dose: 81 mg Chlordiazepoxide (Librium) 50 mg PO Q8 [facility] Last Admin: 06/09/17 13:30 Dose: Not Given Doxycycline Hyclate (Doryx) 100 mg PO Q12 [facility] PRN Reason: Protocol Stop: 06/18/17 10:01 Last Admin: 06/09/17 09:01 Dose: 100 mg Folic Acid (Folic Acid) 1 mg PO DAILY [facility] Last Admin: 06/09/17 09:02 Dose: 1 mg Furosemide (Lasix) 40 mg IVP Q12 [facility] Last Admin: 06/09/17 09:02 Dose: 40 mg Nitroglycerin/Dextrose (Nitroglycerin 50 Mg/250 Ml D5w) 50 mg in 250 mls @ 1.5 mls/hr IV .Q24H PRN; Protocol; 5 MCG/MIN PRN Reason: Wheezing Last Titration: 06/08/17 12:20 Dose: 0 mcg/min, 0 mls/hr Vancomycin HCl (Vancomycin 1gm) 1 gm in 250 mls @ 167 mls/hr IVPB Q12H [facility] PRN Reason: Protocol Last Admin: 06/09/17 14:15 Dose: 167 mls/hr Meropenem (Merrem Iv 1 Gm Premix) 50 mls @ 100 mls/hr IVPB Q12 [facility] PRN Reason: Protocol Stop: 06/18/17 10:01 Last Admin: 06/09/17 09:03 Dose: 100 mls/hr Lorazepam (Ativan) 2 mg IVP Q6H [facility] PRN Reason: Protocol Last Admin: 06/09/17 13:29 Dose: 2 mg Lorazepam (Ativan) 1 mg IVP Q2H PRN; Protocol PRN Reason: Withdrawal Losartan Potassium (Cozaar) 25 mg PO DAILY [facility] Last Admin: 06/09/17 09:02 Dose: 25 mg Metoprolol Tartrate (Lopressor) 25 mg PO BID [facility] Last Admin: 06/09/17 17:03 Dose: 25 mg Multivitamins/Minerals (Therapeutic-M Tab) 1 tab PO 0800 [facility] Last Admin: 06/09/17 08:48 Dose: 1 tab Spironolactone (Aldactone) 25 mg PO DAILY [facility] Last Admin: 06/09/17 09:01 Dose: 25 mg Thiamine HCl (Vitamin B1 Tab) 100 mg PO DAILY [facility] Last Admin: 06/09/17 09:01 Dose: 100 mg - Labs Labs: 06/09/17 04:09 06/09/17 04:09 PT 10.6 SECONDS (9.4-12.5) 06/08/17 11:38 INR 0.92 (0.93-1.08) L 06/08/17 11:38 APTT 31.3 Seconds (25.1-36.5) 06/08/17 11:38 Attending/Attestation - Attestation I have personally seen and examined this patient.: Yes I have fully participated in the care of the patient.: Yes I have reviewed all pertinent clinical information, including history, physical exam and plan: Yes Notes (Text): 06/09/17 18:49 attending note; Patient seen and examined with resident in ICU. patient is complaining of shakiness and tremors. Patient is more alert and awake. Patient is a 56 year old male with a past medical history significant for CAD, s /p ASHANTI, hypertension, hyperlipidemia , COPD, tobacco and alcohol abuse who presented with shortness of breath and alcohol intoxication. CHF resolved after IV Lasix treatment. I Alcohol intoxication; complete alcohol cessation is strongly advised. Continue CIWA protocol. Ativan when necessary ordered. currently in mild alcohol withdrawal. COPD; currently on oxygen. Active smoking; smoking cessation is strongly advised. Continue DuoNeb treatment. coronary artery disease; continue aspirin. History of apical thrombus; continue Eliquis. Monitor blood pressure closely. Restart beta adelso, Cozaar once blood pressure is stable. Leukocytosis with elevated lactic acid; less likely sepsis. on vancomycin , Meropenem and doxycycline. ID evaluation appreciated. blood culture is negative. Prognosis is poor secondary to continuous smoking history, alcohol abuse and noncompliance with medication. Monitor closely in ICU. Patient is full code. upon discharge The patient will be referred to [facility] clinic.
--- NOTE | 2017-06-09 16:47 | CP.PCM.CON ---
History of Present Illness - History of Present Illness History of Present Illness: 56 year old male with PMH of HTN, COPD, CAD S/P PCI, chronic CHF S/P AICD placement, anxiety, depression, history of polysubstance abuse, obesity with BMI 32 came in to [facility] [place] complaining of worsening shortness of breath for about 1- 2 days, associated with autumn-colored sputum but without outright blood. He denies chest pain, has also dyspnea on exertion, denies sore throat, denies fever or chills, no nausea or vomiting, no abdominal pain, no diarrhea, no dysuria. He admits to consuming large amounts of alcohol over the past several days. He denies recent travel outside of [place], no animal contacts. Inthe ED, CXR showed pulmonary congestion, but cannot rule out pneumonia. He came in also with leukocytosis. Infectious Diseases consult is requested to further evaluate and manage. Review of Systems - Review of Systems All systems: reviewed and no additional remarkable complaints except (as per HPI ) Past Patient History - Infectious Disease Hx of Infectious Diseases: None - Past Medical History & Family History Past Medical History?: Yes - Past Social History Smoking Status: Current Some Days Smoker - CARDIAC Hx Cardiac Disorders: Yes (coronary stent) Hx Congestive Heart Failure: Yes Hx Hypertension: Yes - PULMONARY Hx Respiratory Disorders: Yes (SMOKES CIGARETTES,MARIJUANA) Hx Chronic Obstructive Pulmonary Disease (COPD): Yes - NEUROLOGICAL Hx Neurological Disorder: No Hx Alzheimer's Disease: No HX Cerebrovascular Accident: No Hx Dementia: No Hx Dizziness: No Hx Meningitis: No Hx Migraine: No Hx Parkinson's Disease: No Hx Seizures: No Hx Transient Ischemic Attacks (TIA): No - HEENT Hx HEENT Problems: No (wears glasses) Hx Blind: No Hx Cataracts: No Hx Deafness: No Hx Difficulty Chewing: No (PARTIAL UPPER AND LOWER DENTURES) Hx Epistaxis: No Hx Glaucoma: No Hx Macular Degeneration: No - RENAL Hx Chronic Kidney Disease: No Hx Dialysis: No Hx Kidney Stones: No Hx Neurogenic Bladder: No Hx Pyelonephritis: No Hx Renal (Kidney) Cancer: No Hx Renal Failure: No - ENDOCRINE/METABOLIC Hx Endocrine Disorders: Yes Hx Adrenal Cancer: No Hx Diabetes Insipidus: No Hx Diabetes Mellitus Type 1: No Hx Diabetes Mellitus Type 2: No (BORDERLINE) Hx Hyperthyroidism: No Hx Hypothyroidism: No Hx Systemic Lupus Erythematosus: No - HEMATOLOGICAL/ONCOLOGICAL Hx Blood Disorders: No Hx AIDS: No Hx Anemia: No Hx Cancer: No Hx Chemotherapy: No Hx Cirrhosis: No Hx Hemophilia: No Hx Hepatitis A: No Hx Hepatitis B: No Hx Hepatitis C: No Hx Metastesis: No Hx Shingles: No Hx Sickle Cell Disease: No Hx Unexplained Bleeding: No - INTEGUMENTARY Hx Dermatological Problems: No Hx Basil Cell: No Hx Eczema: No Hx Melanoma: No Hx Psoriasis: No Hx Squamous Cell: No - MUSCULOSKELETAL/RHEUMATOLOGICAL Hx Musculoskeletal Disorders: No Hx Falls: Yes - GASTROINTESTINAL Hx Gastrointestinal Disorders: Yes (HEMORRHOIDS) Hx Colostomy: No Hx Crohn's Disease: No Hx Diverticulitis: No Hx Gall Bladder Disease: No Hx Gastroesophageal Reflux: No Hx Ileostomy: No Hx Liver Failure: No Hx Pancreatitis: No HX Swallowing Problems: No - GENITOURINARY/GYNECOLOGICAL Hx Genitourinary Disorders: No Hx Hematuria: No Hx Incontinence: No Hx Prostate Problems: No Hx Sexually Transmitted Disorders: No Hx Urinary Tract Infection: No - PSYCHIATRIC Hx Psychophysiologic Disorder: Yes Hx Anxiety: Yes Hx Bipolar Disorder: No Hx Depression: Yes Hx Emotional Abuse: No Hx Hallucinations: No Hx Panic Symptoms: No Hx Post Traumatic Stress Disorder: No Hx Psychosis: No Hx Physical Abuse: No Hx Schizophrenia: No Hx Sexual Abuse: No Hx Substance Use: Yes (2 MONS AGO.COCAINE,SMOKED 20$ SIZE.) Other/Comment: SUBSTANCE USE- COCAINE, PCP, MARIJUANA. ALCOHOL ABUSE - SURGICAL HISTORY Hx Surgeries: Yes Hx Amputation: No Hx Appendectomy: No Hx Cardiac Catheterization: Yes (STENTS X4) Hx Cholecystectomy: No Hx Coronary Stent: Yes (x4 on 01/01/2016) Hx Gastric Bypass Surgery: No Hx Hysterectomy: No Hx Joint Replacement: No Hx Kidney Transplant: No Hx Liver Transplant: No Hx Mastectomy: No Hx Musculoskeletal Surgery: No Hx Open Heart Surgery: No Hx Orthopedic Surgery: No Hx Splenectomy: No Hx Valve Replacement: No Other/Comment: Hx Pacemaker/defibrillator placement. Hx Surgery for undescended testes 1982 - ANESTHESIA Hx Anesthesia: Yes Hx Anesthesia Reactions: No Hx Malignant Hyperthermia: No Meds Allergies/Adverse Reactions: Allergies Allergy/AdvReac Type Severity Reaction Status Date / Time No Known Allergies Allergy Verified 06/08/17 17:35 - Medications Medications: Current Medications Acetaminophen (Tylenol 325mg Tab) 650 mg PO Q6 PRN PRN Reason: Pain, moderate (4-7) Albuterol/Ipratropium (Duoneb 3 Mg/0.5 Mg (3 Ml) Ud) 3 ml IH [id number] [facility] Last Admin: 06/08/17 20:15 Dose: 3 ml Albuterol/Ipratropium (Duoneb 3 Mg/0.5 Mg (3 Ml) Ud) 3 ml IH Q2H PRN PRN Reason: Shortness of Breath Apixaban (Eliquis) 5 mg PO BID TU PRN Reason: Protocol Last Admin: 06/08/17 17:09 Dose: 5 mg Aspirin (Ecotrin) 81 mg PO DAILY TU Doxycycline Hyclate (Doryx) 100 mg PO Q12 TU PRN Reason: Protocol Stop: 06/18/17 10:01 Folic Acid (Folic Acid) 1 mg PO DAILY [facility] Furosemide (Lasix) 40 mg IVP Q12 [facility] Last Admin: 06/08/17 21:09 Dose: 40 mg Nitroglycerin/Dextrose (Nitroglycerin 50 Mg/250 Ml D5w) 50 mg in 250 mls @ 1.5 mls/hr IV .Q24H PRN; Protocol; 5 MCG/MIN PRN Reason: Wheezing Last Titration: 06/08/17 12:20 Dose: 0 mcg/min, 0 mls/hr Vancomycin HCl (Vancomycin 1gm) 1 gm in 250 mls @ 167 mls/hr IVPB Q12H TU PRN Reason: Protocol Last Admin: 06/08/17 16:05 Dose: 167 mls/hr Meropenem (Merrem Iv 1 Gm Premix) 50 mls @ 100 mls/hr IVPB Q12 TU PRN Reason: Protocol Stop: 06/18/17 10:01 Losartan Potassium (Cozaar) 25 mg PO DAILY [facility] Metoprolol Tartrate (Lopressor) 25 mg PO BID [facility] Last Admin: 06/08/17 17:24 Dose: 25 mg Multivitamins/Minerals (Therapeutic-M Tab) 1 tab PO 0800 [facility] Spironolactone (Aldactone) 25 mg PO DAILY [facility] Thiamine HCl (Vitamin B1 Tab) 100 mg PO DAILY [facility] Physical Exam - Constitutional Appears: Other (on BiPAP) - Head Exam Head Exam: NORMAL INSPECTION - Respiratory Exam Respiratory Exam: Decreased Breath Sounds, Rales - Cardiovascular Exam Cardiovascular Exam: +S1, +S2 - GI/Abdominal Exam GI & Abdominal Exam: Soft. absent: Tenderness Results - Vital Signs Recent Vital Signs: Last Vital Signs Temp 98.4 F 06/08/17 19:52 Pulse 114 H 06/08/17 21:30 Resp 23 06/08/17 21:30 BP 159/99 H 06/08/17 21:09 Pulse Ox 98 06/08/17 21:30 - Labs Result Diagrams: 06/09/17 04:09 06/09/17 04:09 Labs: Laboratory Results - last 24 hr 06/08/17 06/08/17 06/08/17 16:57 16:57 16:57 pO2 30 VBG pH 7.09 L* VBG pCO2 59.0 VBG HCO3 17.9 L VBG Total CO2 19.7 L VBG O2 Sat (Calc) 53.3 VBG Base Excess -12.4 L Sodium 129.0 L Chloride 104.0 Glucose 172 H Lactate 3.9 H FiO2 21.0 Total Bilirubin 0.7 Direct Bilirubin 0.4 AST 100 H D ALT 132 H Alkaline Phosphatase 118 Troponin I Total Protein 7.9 Albumin 4.7 Globulin 3.3 Albumin/Globulin Ratio 1.4 Procalcitonin < 0.05 L Urine Color Urine Appearance Urine pH Ur Specific [place] Urine Protein Urine Glucose (UA) Urine Ketones Urine Blood Urine Nitrate Urine Bilirubin Urine Urobilinogen Ur Leukocyte Esterase Urine RBC Urine WBC Urine Opiates Screen Urine Methadone Screen Ur Barbiturates Screen Ur Phencyclidine Scrn Ur Amphetamines Screen U Benzodiazepines Scrn U Oth Cocaine Metabols U Cannabinoids Screen 06/08/17 06/08/17 06/08/17 17:00 19:50 20:37 pO2 VBG pH VBG pCO2 VBG HCO3 VBG Total CO2 VBG O2 Sat (Calc) VBG Base Excess Sodium Chloride Glucose Lactate FiO2 Total Bilirubin Direct Bilirubin AST ALT Alkaline Phosphatase Troponin I 0.05 D Total Protein Albumin Globulin Albumin/Globulin Ratio Procalcitonin Urine Color Yellow Urine Appearance Sl cloudy Urine pH 5.5 Ur Specific [place] 1.020 Urine Protein Negative Urine Glucose (UA) Negative Urine Ketones Trace H Urine Blood Large H Urine Nitrate Negative Urine Bilirubin Negative Urine Urobilinogen 0.2 Ur Leukocyte Esterase Negative Urine RBC 20 - 25 Urine WBC Negative Urine Opiates Screen Negative Urine Methadone Screen Negative Ur Barbiturates Screen Negative Ur Phencyclidine Scrn Negative Ur Amphetamines Screen Negative U Benzodiazepines Scrn Negative U Oth Cocaine Metabols Negative U Cannabinoids Screen Negative Assessment & Plan - Assessment and Plan (Free Text) Plan: Assessment Systemic Inflammatory Response Syndrome with hypoxic respiratory failure, consider acute on chronic CHF, R/O pneumonia, in this patient with probable alcohol withdrawal syndrome HTN COPD CAD S/P PCI chronic CHF S/P AICD placement anxiety depression history of polysubstance abuse obesity with BMI 32 Plan Started Doxycycline and Merrem pending blood, sputum cx; PCT is less than 0.05 - if cultures are negative, will d/c antibiotics will monitor clinical response will check HIV test
--- NOTE | 2017-06-09 23:56 | PN ---
DATE: SUBJECTIVE: The patient's shortness of breath has improved. He denies chest pain. PHYSICAL EXAMINATION: VITAL SIGNS: Blood pressure 126/78, heart rate 105, temperature 98.9, respirations 16. HEENT: Normocephalic. CHEST: Bibasilar rhonchi. HEART: S1 and S2, regular. EXTREMITIES: No edema. LABORATORY DATA: SMA-7 is within normal limits except for glucose of 164 and chloride of 111. Hemoglobin and hematocrit are within normal limits. White count 11.4, platelet count 175,000. ASSESSMENT: 1. Exacerbation of congestive heart failure. 2. Status post implantable cardioverter-defibrillator placement. 3. Coronary artery disease with history of coronary stenting to the mid-circumflex artery. 4. Ethyl alcohol abuse. 5. Noncompliance. The patient was not taking his medications for quite some time prior to his admission. 5. Left ventricular apical thrombus. 6. Chronic obstructive lung disease. RECOMMENDATIONS: Continue Aldactone 25 mg once a day, Cozaar 25 mg once a day, aspirin 81 mg once a day, Eliquis 5 mg once a day, Lasix 40 mg intravenously twice a day, Lopressor 25 mg twice a day, IV meropenem at 1 g every 12 hours, vancomycin 1 g intravenously every 12 hours and thiamine 100 mg daily. The patient is a poor candidate for invasive cardiac workup and conservative medical therapy is justified. Tyrell Cannon MD
[2017-06-10] MEDS: Vancomycin 1gm in NS 250ml 1 GM/250 ML BAG IVPB SCH ×2 (01:51→13:32)
[2017-06-10 05:46] LABS: BASO # 0.06 K/mm3 (0.0-2.0); BASO % 0.6 % (0.0-3.0); EOS # 0.1 (0.0-0.7); EOS % 0.7 % (1.5-5.0); GRAN # 7.37 (1.4-6.5); GRAN % 71.1 % (50.0-68.0); HEMOGLOBIN 13.8 g/dL (14.0-18.0); LYMPH # 2.1 (1.2-3.4); LYMPH % 20.4 % (22.0-35.0); MEAN CELL VOLUME 95.6 fl (80.0-105.0); MEAN CORPUSCULAR HEMOGLOBIN 31.8 pg (25.0-35.0); MEAN CORPUSCULAR HGB CONC 33.3 g/dl (31.0-37.0); MEAN PLATELET VOLUME 10.8 fl (7.0-11.0); MONO # 0.8 (0.1-0.6); MONO % 7.2 % (1.0-6.0); RBC 4.34 10^6/uL (3.5-6.1); WHITE BLOOD COUNT 10.4 10^3/ul (4.5-11.0)
[2017-06-10 06:05] LABS: ALB/GLOB RATIO 1.4 (1.1-1.8); ALT/SGPT 76 U/L (7-56); AST/SGOT 38 U/L (17-59); BLOOD UREA NITROGEN 25 mg/dL (7-21); CALCIUM 8.9 mg/dL (8.4-10.5); GFR AFRICAN-AMERICAN > 60; GFR NON-AFRICAN AMERICAN > 60
[2017-06-10] MEDS: Albuterol-Ipratrop 3 mg / 0.5 (3 ml) UD IH SCH ×3 (08:00→19:58)
[2017-06-10] MEDS: Albuterol-Ipratrop 3 mg / 0.5 (3 ml) UD IH PRN (08:01)
--- NOTE | 2017-06-10 09:30 | PN ---
DATE: 06/10/2017 SUBJECTIVE: The patient is seen earlier this morning in 129, bed 3. No fevers and no chills. He is doing better on exam. PHYSICAL EXAMINATION: VITAL SIGNS: Temperature is 98, blood pressure is 120/70, respiratory rate of 23, heart rate of 100. HEENT: Examination of HEENT is unremarkable. NECK: Supple. LUNGS: Have decreased breath sounds. HEART: Normal S1 and S2. ABDOMEN: Soft, nontender. No organomegaly. No rebound. No guarding. No masses. LABORATORY DATA: Laboratory examination reveals the patient has white count of 10,400, hemoglobin of 13, platelets of 150. Coagulation is noted. The chemistries reveals a BUN of 25, creatinine of 0.9. Procalcitonin is normal. Urinalysis is unremarkable. Does have 20-25 wbc's. The alcohol level is 98. Microbiology reveals the blood cultures are negative. Urine cultures are negative. Review of orders reveals the patient to be on doxycycline and meropenem and vancomycin intermittently. The patient also had a chest x-ray with no focal consolidation. ASSESSMENT AND PLAN: A 56-year-old male who was seen early this morning in 129, bed 3 with hypertension, chronic obstructive lung disease, coronary artery disease and status post percutaneous coronary intervention, chronic congestive heart failure, status post automatic implantable cardioverter-defibrillator placement, anxiety, depression, history of polysubstance abuse, obesity and body mass index of 32. Came in to [place] complaining of worsening shortness of breath and autumn-color sputum and with #1 is SIRS, systemic inflammatory response syndrome with hypoxic respiratory failure with acute on chronic congestive heart failure. Must rule out underlying pneumonia in a patient with alcohol ingestion and was given a dose of vancomycin. Thus far, the blood cultures are negative. The methicillin-resistant Staphylococcus aureus screen is also not detected. The patient has a normal procalcitonin. Does not appear to have a pneumonia at this point and awaiting for the sputum culture and urine culture, on doxycycline and meropenem. If all cultures negative, we will discontinue the doxycycline and complete a short course of meropenem. Richard Saenz MD [facility] # [id number]
[2017-06-10] MEDS: Multivitamin With Minerals Tab PO SCH (09:53)
[2017-06-10] MEDS: Meropenem IV 1 gm in NS 50 ML IVPB SCH ×2 (09:54→22:13)
[2017-06-10] MEDS ORDERED: Potassium Chloride 20 mEq ER Tab PO ONE (10:00)
--- NOTE | 2017-06-10 10:47 | CP.PCM.PN ---
<Charlie Harrison - Last Filed: 06/10/17 10:30> Subjective - Date & Time of Evaluation Date of Evaluation: 06/10/17 Time of Evaluation: 07:30 - Subjective Subjective: Subjective: Patient seen and examined at bedside. Resting comfortably in bed. No acute overnight events. Patient states he feels more awake and has improved strength/ energy. Offers no new complaints at this time. Denies fever, chills, chest pain , shortness of breath, abdominal pain, nausea, vomiting, diarrhea, constipation , and urinary symptoms. Physical Examination: - Head Exam Head Exam: ATRAUMATIC, NORMOCEPHALIC - Constitutional Appears: Non-toxic, No Acute Distress - Head Exam Head Exam: ATRAUMATIC, NORMOCEPHALIC - Eye Exam Eye Exam: EOMI - ENT Exam ENT Exam: Mucous Membranes Moist - Neck Exam Neck exam: Positive for: Full Rom - Respiratory Exam Respiratory Exam: decreased breath sounds bilaterally - Cardiovascular Exam Cardiovascular Exam: +S1, +S2. absent: Systolic Murmur - GI/Abdominal Exam GI & Abdominal Exam: Normal Bowel Sounds, Soft, Non tender to palpation absent : Distended, Firm, Mass, Rebound, Rigid - Extremities Exam Extremities exam: Positive for: normal inspection. Negative for: calf tenderness, pedal edema - Neurological Exam Neurological exam: Patient is awake, alert, responds to verbal stimuli, answers questions appropriately, follows commands, and moves extremities past midline - Psychiatric Exam Psychiatric exam: Normal Affect, Normal Mood - Skin Skin Exam: Intact, Normal Color, Warm Assessment and Plan: Patient is a 56 yo M with PMH of HTN, COPD, CAD s/p 4 stents and AICD , CHF with EF 35%, FL, anxiety, depression, polysubstance abuse, and alcohol abuse who was admitted for evaluation and treatment of acutely worsening shortness of breath. Shortness of breath -COPD exacerbation vs CHF exacerbation vs aspiration PNA, may be multifactorial , likely a component 2/2 medication non-compliance -CXR obtained in ED suggestive of fluid overload consistent with CHF exacerbation -Duonebs q6 lis and q2 prn for COPD exacerbation -C/w lasix -Continue doxy, keith, vanc per ID -Cardio (Dr. Cannon) and ID (Dr. Saenz) consulted, appreciate all recs Alcohol Withdrawl -CIWA protocol - c/w librium Deconditioned State - Pt consulted- appreciate recommendations Hx CAD, HTN - blood pressure reviewed, trended, and appreciated-within normal range - continue ASA and eliquis, - continue losartan, lasix, lopressor, and aldactone Prophylaxis - Ppx: protonix for GI - Eliquis covers for DVT Patient seen, case discussed with, and plan approved by attending physician, Dr. Diaz. Objective - Vital Signs/Intake and Output Vital Signs (last 24 hours): Temp Pulse Resp BP Pulse Ox 98.6 F 87 18 117/67 98 06/10/17 04:00 06/10/17 09:53 06/10/17 07:40 06/10/17 09:54 06/10/17 07:50 Intake and Output: 06/10/17 06/10/17 06:59 18:59 Intake Total 1070 Output Total 2175 Balance -1105 - Medications Medications: Current Medications Acetaminophen (Tylenol 325mg Tab) 650 mg PO Q6 PRN PRN Reason: Pain, moderate (4-7) Albuterol/Ipratropium (Duoneb 3 Mg/0.5 Mg (3 Ml) Ud) 3 ml IH [id number] [facility] Last Admin: 06/09/17 20:50 Dose: 3 ml Albuterol/Ipratropium (Duoneb 3 Mg/0.5 Mg (3 Ml) Ud) 3 ml IH Q2H PRN PRN Reason: Shortness of Breath Last Admin: 06/10/17 08:01 Dose: 3 ml Apixaban (Eliquis) 5 mg PO BID [facility] PRN Reason: Protocol Last Admin: 06/10/17 09:54 Dose: 5 mg Aspirin (Ecotrin) 81 mg PO DAILY [facility] Last Admin: 06/10/17 09:53 Dose: 81 mg Chlordiazepoxide (Librium) 50 mg PO Q8 [facility] Last Admin: 06/10/17 06:11 Dose: 50 mg Doxycycline Hyclate (Doryx) 100 mg PO Q12 [facility] PRN Reason: Protocol Stop: 06/18/17 10:01 Last Admin: 06/10/17 09:53 Dose: 100 mg Folic Acid (Folic Acid) 1 mg PO DAILY [facility] Last Admin: 06/10/17 09:53 Dose: 1 mg Furosemide (Lasix) 40 mg IVP Q12 [facility] Last Admin: 06/10/17 09:54 Dose: 40 mg Nitroglycerin/Dextrose (Nitroglycerin 50 Mg/250 Ml D5w) 50 mg in 250 mls @ 1.5 mls/hr IV .Q24H PRN; Protocol; 5 MCG/MIN PRN Reason: Wheezing Last Titration: 06/08/17 12:20 Dose: 0 mcg/min, 0 mls/hr Vancomycin HCl (Vancomycin 1gm) 1 gm in 250 mls @ 167 mls/hr IVPB Q12H [facility] PRN Reason: Protocol Last Admin: 06/10/17 01:51 Dose: 167 mls/hr Meropenem (Merrem Iv 1 Gm Premix) 50 mls @ 100 mls/hr IVPB Q12 [facility] PRN Reason: Protocol Stop: 06/18/17 10:01 Last Admin: 06/10/17 09:54 Dose: 100 mls/hr Lorazepam (Ativan) 1 mg IVP Q2H PRN; Protocol PRN Reason: Withdrawal Losartan Potassium (Cozaar) 25 mg PO DAILY [facility] Last Admin: 06/10/17 09:53 Dose: 25 mg Metoprolol Tartrate (Lopressor) 25 mg PO BID [facility] Last Admin: 06/10/17 09:53 Dose: 25 mg Multivitamins/Minerals (Therapeutic-M Tab) 1 tab PO 0800 [facility] Last Admin: 06/10/17 09:53 Dose: 1 tab Spironolactone (Aldactone) 25 mg PO DAILY [facility] Last Admin: 06/10/17 09:53 Dose: 25 mg Thiamine HCl (Vitamin B1 Tab) 100 mg PO DAILY [facility] Last Admin: 06/10/17 09:52 Dose: 100 mg - Labs Labs: 06/10/17 05:00 06/10/17 05:00 PT 10.6 SECONDS (9.4-12.5) 06/08/17 11:38 INR 0.92 (0.93-1.08) L 06/08/17 11:38 APTT 31.3 Seconds (25.1-36.5) 06/08/17 11:38 <Leah Diaz - Last Filed: 06/10/17 15:28> Objective - Vital Signs/Intake and Output Vital Signs (last 24 hours): Temp Pulse Resp BP Pulse Ox 98.6 F 82 13 103/65 98 06/10/17 04:00 06/10/17 14:20 06/10/17 14:20 06/10/17 14:00 06/10/17 14:20 Intake and Output: 06/10/17 06/10/17 06:59 18:59 Intake Total 1070 Output Total 2175 Balance -1105 - Medications Medications: Current Medications Acetaminophen (Tylenol 325mg Tab) 650 mg PO Q6 PRN PRN Reason: Pain, moderate (4-7) Albuterol/Ipratropium (Duoneb 3 Mg/0.5 Mg (3 Ml) Ud) 3 ml IH [id number] [facility] Last Admin: 06/10/17 13:52 Dose: 3 ml Albuterol/Ipratropium (Duoneb 3 Mg/0.5 Mg (3 Ml) Ud) 3 ml IH Q2H PRN PRN Reason: Shortness of Breath Last Admin: 06/10/17 08:01 Dose: 3 ml Apixaban (Eliquis) 5 mg PO BID LIS PRN Reason: Protocol Last Admin: 06/10/17 09:54 Dose: 5 mg Aspirin (Ecotrin) 81 mg PO DAILY [facility] Last Admin: 06/10/17 09:53 Dose: 81 mg Chlordiazepoxide (Librium) 50 mg PO Q8 [facility] Last Admin: 06/10/17 13:33 Dose: 50 mg Doxycycline Hyclate (Doryx) 100 mg PO Q12 [facility] PRN Reason: Protocol Stop: 06/18/17 10:01 Last Admin: 06/10/17 09:53 Dose: 100 mg Folic Acid (Folic Acid) 1 mg PO DAILY [facility] Last Admin: 06/10/17 09:53 Dose: 1 mg Furosemide (Lasix) 40 mg PO BID [facility] Vancomycin HCl (Vancomycin 1gm) 1 gm in 250 mls @ 167 mls/hr IVPB Q12H [facility] PRN Reason: Protocol Last Admin: 06/10/17 13:32 Dose: 167 mls/hr Meropenem (Merrem Iv 1 Gm Premix) 50 mls @ 100 mls/hr IVPB Q12 [facility] PRN Reason: Protocol Stop: 06/18/17 10:01 Last Admin: 06/10/17 09:54 Dose: 100 mls/hr Lorazepam (Ativan) 1 mg IVP Q2H PRN; Protocol PRN Reason: Withdrawal Losartan Potassium (Cozaar) 25 mg PO DAILY [facility] Last Admin: 06/10/17 09:53 Dose: 25 mg Metoprolol Tartrate (Lopressor) 25 mg PO BID [facility] Last Admin: 06/10/17 09:53 Dose: 25 mg Multivitamins/Minerals (Therapeutic-M Tab) 1 tab PO 0800 [facility] Last Admin: 06/10/17 09:53 Dose: 1 tab Spironolactone (Aldactone) 25 mg PO DAILY [facility] Last Admin: 06/10/17 09:53 Dose: 25 mg Thiamine HCl (Vitamin B1 Tab) 100 mg PO DAILY [facility] Last Admin: 06/10/17 09:52 Dose: 100 mg - Labs Labs: 06/10/17 05:00 06/10/17 05:00 PT 10.6 SECONDS (9.4-12.5) 06/08/17 11:38 INR 0.92 (0.93-1.08) L 06/08/17 11:38 APTT 31.3 Seconds (25.1-36.5) 06/08/17 11:38 Attending/Attestation - Attestation I have personally seen and examined this patient.: Yes I have fully participated in the care of the patient.: Yes I have reviewed all pertinent clinical information, including history, physical exam and plan: Yes Notes (Text): 06/10/17 15:26 attending note; Patient seen and examined with resident in ICU. patient is complaining of shakiness and tremors. Patient is more alert and awake. Patient is a 56 year old male with a past medical history significant for CAD, s /p ASHANTI, hypertension, hyperlipidemia , COPD, tobacco and alcohol abuse who presented with shortness of breath and alcohol intoxication. Acute systolic CHF is resolving. Continue Lasix. Alcohol intoxication; complete alcohol cessation is strongly advised. Continue CIWA protocol. Continue Librium .Ativan when necessary ordered. currently in mild alcohol withdrawal. COPD; currently on oxygen. Active smoking; smoking cessation is strongly advised. Continue DuoNeb treatment. coronary artery disease; continue aspirin. History of apical thrombus; continue Eliquis. Leukocytosis: resolved. on vancomycin , Meropenem and doxycycline. ID evaluation appreciated. blood culture is negative. Prognosis is poor secondary to continuous smoking history, alcohol abuse and noncompliance with medication. Discontinue Boswell catheter. Out of bed to chair as tolerated. Transferred to telemetry. upon discharge The patient will be referred to [facility] clinic.
--- NOTE | 2017-06-10 13:32 | PN ---
DATE: 06/10/2017 CARDIOLOGY FOLLOWUP SUBJECTIVE: The patient is without shortness of breath. PHYSICAL EXAMINATION: VITAL SIGNS: Blood pressure is 96/61, the heart rates in the 90s. NECK: Negative JVD. LUNGS: Without rales. HEART: Reveals S1, S2. EXTREMITIES: Without edema. LABORATORY DATA: Hemoglobin is 13.8. Chemistries: BUN and creatinine are 25 and 0.9. IMPRESSION: 1. Resolution of congestive heart failure. 2. Dilated cardiomyopathy. 3. History of coronary artery disease. 4. Noncompliance. 5. History of smoking. PLAN: Given these findings, the patient has improved. We will discontinue the Boswell catheter today. The patient can be transferred to telemetry. Griffin Castle MD
[2017-06-11] MEDS: Vancomycin 1gm in NS 250ml 1 GM/250 ML BAG IVPB SCH ×2 (01:11→14:00)
[2017-06-11] MEDS: Albuterol-Ipratrop 3 mg / 0.5 (3 ml) UD IH SCH ×4 (02:20→19:11)
[2017-06-11 07:55] LABS: BASO # 0.1 K/mm3 (0.0-2.0); EOS # 0.3 (0.0-0.7); EOS % 2.8 % (1.5-5.0); GRAN # 6.8 (1.4-6.5); GRAN % 64.7 % (50.0-68.0); HEMOGLOBIN 13.8 g/dL (14.0-18.0); LYMPH # 2.5 (1.2-3.4); LYMPH % 23.9 % (22.0-35.0); MEAN CELL VOLUME 96.2 fl (80.0-105.0); MEAN CORPUSCULAR HEMOGLOBIN 32.4 pg (25.0-35.0); MEAN CORPUSCULAR HGB CONC 33.7 g/dl (31.0-37.0); MEAN PLATELET VOLUME 11.2 fl (7.0-11.0); MONO # 0.8 (0.1-0.6); MONO % 7.6 % (1.0-6.0); RBC 4.26 10^6/uL (3.5-6.1); RED CELL DISTRIBUTION WIDTH 14.7 % (11.5-14.5); WHITE BLOOD COUNT 10.5 10^3/ul (4.5-11.0)
[2017-06-11 08:55] LABS: BLOOD UREA NITROGEN 25 mg/dL (7-21); CALCIUM 8.9 mg/dL (8.4-10.5); GFR AFRICAN-AMERICAN > 60; GFR NON-AFRICAN AMERICAN > 60
[2017-06-11] MEDS: Meropenem IV 1 gm in NS 50 ML IVPB SCH ×2 (10:21→21:13)
[2017-06-11] MEDS: Multivitamin With Minerals Tab PO SCH (10:23)
--- NOTE | 2017-06-11 11:01 | CP.PCM.PN ---
<Charlie Harrison - Last Filed: 06/11/17 10:56> Subjective - Date & Time of Evaluation Date of Evaluation: 06/11/17 Time of Evaluation: 07:40 - Subjective Subjective: Subjective: Patient seen and examined at bedside. Resting comfortably in bed. No acute overnight events. Patient states his withdrawl sympomts are improving and is tolerating his diet. Would like to speak with psychiatrist regarding his depression. Denies SI or HI. Denies fever, chills, chest pain, shortness of breath, abdominal pain, nausea, vomiting, diarrhea, constipation, and urinary symptoms. Physical Examination: - Head Exam Head Exam: ATRAUMATIC, NORMOCEPHALIC - Constitutional Appears: Non-toxic, No Acute Distress - Head Exam Head Exam: ATRAUMATIC, NORMOCEPHALIC - Eye Exam Eye Exam: EOMI - ENT Exam ENT Exam: Mucous Membranes Moist - Neck Exam Neck exam: Positive for: Full Rom - Respiratory Exam Respiratory Exam: decreased breath sounds bilaterally - Cardiovascular Exam Cardiovascular Exam: +S1, +S2. absent: Systolic Murmur - GI/Abdominal Exam GI & Abdominal Exam: Normal Bowel Sounds, Soft, Non tender to palpation absent : Distended, Firm, Mass, Rebound, Rigid - Extremities Exam Extremities exam: Positive for: normal inspection. Negative for: calf tenderness, pedal edema - Neurological Exam Neurological exam: Patient is awake, alert, responds to verbal stimuli, answers questions appropriately, follows commands, and moves extremities past midline - Psychiatric Exam Psychiatric exam: Normal Affect, Normal Mood - Skin Skin Exam: Intact, Normal Color, Warm Assessment and Plan: Patient is a 56 yo M with PMH of HTN, COPD, CAD s/p 4 stents and AICD , CHF with EF 35%, AL, anxiety, depression, polysubstance abuse, and alcohol abuse who was admitted for evaluation and treatment of acutely worsening shortness of breath. Shortness of breath - mixed COPD and CHF exacerbation - Duonebs q6 lis and q2 prn for COPD exacerbation - C/w lasix - Continue doxy, keith, vanc per ID - Cardio (Dr. Cannon) and ID (Dr. Saenz) consulted, appreciate all recs Alcohol Withdrawl - CIWA protocol - c/w librium - c/w multivitamin, folic acid, thiamine Deconditioned State - Pt consulted- appreciate recommendations Hx of Depression - psychiatry consulted- appreciate recommendations Hx CAD, HTN - blood pressure reviewed, trended, and appreciated-within normal range - continue ASA and eliquis, - continue losartan, lasix, lopressor, and aldactone Prophylaxis - Ppx: protonix for GI - Eliquis covers for DVT Patient seen, case discussed with, and plan approved by attending physician, Dr. Diaz. Objective - Vital Signs/Intake and Output Vital Signs (last 24 hours): Temp Pulse Resp BP Pulse Ox 97.8 F 89 20 112/79 99 06/11/17 06:00 06/11/17 10:20 06/11/17 06:00 06/11/17 10:21 06/11/17 06:00 Intake and Output: 06/11/17 06/11/17 06:59 18:59 Intake Total 960 Output Total 850 Balance 110 - Medications Medications: Current Medications Acetaminophen (Tylenol 325mg Tab) 650 mg PO Q6 PRN PRN Reason: Pain, moderate (4-7) Albuterol/Ipratropium (Duoneb 3 Mg/0.5 Mg (3 Ml) Ud) 3 ml IH [id number] [facility] Last Admin: 06/11/17 08:05 Dose: 3 ml Albuterol/Ipratropium (Duoneb 3 Mg/0.5 Mg (3 Ml) Ud) 3 ml IH Q2H PRN PRN Reason: Shortness of Breath Last Admin: 06/10/17 08:01 Dose: 3 ml Apixaban (Eliquis) 5 mg PO BID [facility] PRN Reason: Protocol Last Admin: 06/11/17 10:21 Dose: 5 mg Aspirin (Ecotrin) 81 mg PO DAILY [facility] Last Admin: 06/11/17 10:19 Dose: 81 mg Chlordiazepoxide (Librium) 50 mg PO Q8 [facility] Last Admin: 06/11/17 06:00 Dose: Not Given Doxycycline Hyclate (Doryx) 100 mg PO Q12 [facility] PRN Reason: Protocol Stop: 06/18/17 10:01 Last Admin: 06/11/17 10:20 Dose: 100 mg Folic Acid (Folic Acid) 1 mg PO DAILY [facility] Last Admin: 06/11/17 10:20 Dose: 1 mg Furosemide (Lasix) 40 mg PO BID [facility] Last Admin: 06/11/17 10:21 Dose: 40 mg Vancomycin HCl (Vancomycin 1gm) 1 gm in 250 mls @ 167 mls/hr IVPB Q12H [facility] PRN Reason: Protocol Last Admin: 06/11/17 01:11 Dose: 167 mls/hr Meropenem (Merrem Iv 1 Gm Premix) 50 mls @ 100 mls/hr IVPB Q12 [facility] PRN Reason: Protocol Stop: 06/18/17 10:01 Last Admin: 06/11/17 10:21 Dose: 100 mls/hr Lorazepam (Ativan) 1 mg IVP Q2H PRN; Protocol PRN Reason: Withdrawal Losartan Potassium (Cozaar) 25 mg PO DAILY [facility] Last Admin: 06/11/17 10:20 Dose: 25 mg Metoprolol Tartrate (Lopressor) 25 mg PO BID [facility] Last Admin: 06/11/17 10:20 Dose: 25 mg Multivitamins/Minerals (Therapeutic-M Tab) 1 tab PO 0800 [facility] Last Admin: 06/11/17 10:23 Dose: 1 tab Spironolactone (Aldactone) 25 mg PO DAILY [facility] Last Admin: 06/11/17 10:19 Dose: 25 mg Thiamine HCl (Vitamin B1 Tab) 100 mg PO DAILY [facility] Last Admin: 06/11/17 10:19 Dose: 100 mg - Labs Labs: 06/11/17 07:30 06/11/17 07:30 PT 10.6 SECONDS (9.4-12.5) 06/08/17 11:38 INR 0.92 (0.93-1.08) L 06/08/17 11:38 APTT 31.3 Seconds (25.1-36.5) 06/08/17 11:38 <Leah Diaz - Last Filed: 06/11/17 13:38> Objective - Vital Signs/Intake and Output Vital Signs (last 24 hours): Temp Pulse Resp BP Pulse Ox 97.7 F 87 16 103/75 99 06/11/17 12:00 06/11/17 12:00 06/11/17 12:00 06/11/17 12:00 06/11/17 06:00 Intake and Output: 06/11/17 06/11/17 06:59 18:59 Intake Total 960 Output Total 850 Balance 110 - Medications Medications: Current Medications Acetaminophen (Tylenol 325mg Tab) 650 mg PO Q6 PRN PRN Reason: Pain, moderate (4-7) Albuterol/Ipratropium (Duoneb 3 Mg/0.5 Mg (3 Ml) Ud) 3 ml IH [id number] [facility] Last Admin: 06/11/17 08:05 Dose: 3 ml Albuterol/Ipratropium (Duoneb 3 Mg/0.5 Mg (3 Ml) Ud) 3 ml IH Q2H PRN PRN Reason: Shortness of Breath Last Admin: 06/10/17 08:01 Dose: 3 ml Apixaban (Eliquis) 5 mg PO BID [facility] PRN Reason: Protocol Last Admin: 06/11/17 10:21 Dose: 5 mg Aspirin (Ecotrin) 81 mg PO DAILY [facility] Last Admin: 06/11/17 10:19 Dose: 81 mg Chlordiazepoxide (Librium) 50 mg PO Q8 [facility] Last Admin: 06/11/17 06:00 Dose: Not Given Doxycycline Hyclate (Doryx) 100 mg PO Q12 [facility] PRN Reason: Protocol Stop: 06/18/17 10:01 Last Admin: 06/11/17 10:20 Dose: 100 mg Folic Acid (Folic Acid) 1 mg PO DAILY [facility] Last Admin: 06/11/17 10:20 Dose: 1 mg Furosemide (Lasix) 40 mg PO BID [facility] Last Admin: 06/11/17 10:21 Dose: 40 mg Vancomycin HCl (Vancomycin 1gm) 1 gm in 250 mls @ 167 mls/hr IVPB Q12H [facility] PRN Reason: Protocol Last Admin: 06/11/17 01:11 Dose: 167 mls/hr Meropenem (Merrem Iv 1 Gm Premix) 50 mls @ 100 mls/hr IVPB Q12 [facility] PRN Reason: Protocol Stop: 06/18/17 10:01 Last Admin: 06/11/17 10:21 Dose: 100 mls/hr Lorazepam (Ativan) 1 mg IVP Q2H PRN; Protocol PRN Reason: Withdrawal Losartan Potassium (Cozaar) 25 mg PO DAILY [facility] Last Admin: 06/11/17 10:20 Dose: 25 mg Metoprolol Tartrate (Lopressor) 25 mg PO BID [facility] Last Admin: 06/11/17 10:20 Dose: 25 mg Multivitamins/Minerals (Therapeutic-M Tab) 1 tab PO 0800 [facility] Last Admin: 06/11/17 10:23 Dose: 1 tab Spironolactone (Aldactone) 25 mg PO DAILY [facility] Last Admin: 06/11/17 10:19 Dose: 25 mg Thiamine HCl (Vitamin B1 Tab) 100 mg PO DAILY [facility] Last Admin: 06/11/17 10:19 Dose: 100 mg - Labs Labs: 06/11/17 07:30 06/11/17 07:30 PT 10.6 SECONDS (9.4-12.5) 06/08/17 11:38 INR 0.92 (0.93-1.08) L 06/08/17 11:38 APTT 31.3 Seconds (25.1-36.5) 06/08/17 11:38 Attending/Attestation - Attestation I have personally seen and examined this patient.: Yes I have fully participated in the care of the patient.: Yes I have reviewed all pertinent clinical information, including history, physical exam and plan: Yes Notes (Text): 06/11/17 13:37 attending note; Patient seen and examined with resident. patient is complaining of shakiness and tremors. Patient is more alert and awake. Patient is a 56 year old male with a past medical history significant for CAD, s /p ASHANTI, hypertension, hyperlipidemia , COPD, tobacco and alcohol abuse who presented with shortness of breath and alcohol intoxication. Acute systolic CHF is resolving. Continue Lasix. Alcohol intoxication; complete alcohol cessation is strongly advised. Continue CIWA protocol. Continue Librium .Ativan when necessary ordered. currently in mild alcohol withdrawal. COPD; currently on oxygen. Active smoking; smoking cessation is strongly advised. Continue DuoNeb treatment. coronary artery disease; continue aspirin. History of apical thrombus; continue Eliquis. Leukocytosis: resolved. on vancomycin , Meropenem and doxycycline. ID evaluation appreciated. blood culture is negative. Prognosis is poor secondary to continuous smoking history, alcohol abuse and noncompliance with medication. discontinue telemetry. Physical therapy evaluation requested. Patient is requesting psychiatric evaluation for depression. Possible discharge home tomorrow if clinically stable. upon discharge The patient will be referred to [facility].
--- NOTE | 2017-06-11 16:02 | PN ---
DATE: SUBJECTIVE: The patient's shortness of breath has improved. PHYSICAL EXAMINATION: VITAL SIGNS: Blood pressure 103/65, pulse 87, temperature 97.7, respirations 16. HEENT: Normocephalic. CHEST: Minimal rhonchi. HEART: S1 and S2 regular. EXTREMITIES: No edema. LABORATORY DATA: SMA-7 is within normal limits except for glucose 121 and BUN of 25. Hemoglobin and hematocrit 15.8 and 41. White count and platelet count are within normal limits. ASSESSMENT: 1. Cardiomyopathy. 2. Ethyl alcohol abuse. 3. Noncompliance. 4. Coronary artery disease. RECOMMENDATIONS: Continue current Aldactone, Cozaar, aspirin, Eliquis, oral Lasix, IV meropenem, oral thiamine, and Lopressor. Tyrell Cannon MD
--- NOTE | 2017-06-11 21:08 | PN ---
DATE: 06/11/2017 SUBJECTIVE: The patient was seen early this morning in room , bed 2. Chief complaint, still with a left flank pain. The patient had an uneventful night. No fevers and no chills. No nausea. PHYSICAL EXAMINATION: VITAL SIGNS: Temperature is 97, blood pressure is 103/70, respiratory rate of 18. HEENT: Unremarkable. NECK: Supple. LUNGS: Have decreased breath sounds. HEART: Normal S1, S2. ABDOMEN: Soft, nontender. No rebound or guarding. LABORATORY DATA: Reveals the patient's white count is down to 10,000, hemoglobin of 13. Chemistries are noted with a BUN of 25, creatinine of 0.5. Urinalysis from 06/08/2017 is noted. Microbiology: There is yeast in the sputum. The urine cultures are negative. Blood cultures are negative. Review of orders reveals the patient to be on meropenem and doxycycline. ASSESSMENT AND PLAN: This is a 56-year-old male seen earlier today in room , bed 2 with hypertension, chronic obstructive lung disease, coronary artery disease, history of percutaneous coronary intervention, chronic congestive heart failure with an implantable defibrillator, anxiety, depression, polysubstance abuse, obesity with body mass index of 32 with systemic inflammatory response syndrome with hypoxic respiratory failure, acute on chronic congestive heart failure as well as underlying pneumonia, on intermittent vancomycin, waiting for urine and sputum. Currently on doxycycline, meropenem with blood cultures no growth. Nasal methicillin resistant Staphylococcus aureus screen is negative. Urine cultures, no growth. Sputum culture, there is yeast. We will check on the patient's human immunodeficiency virus status. Currently on doxycycline day #3 and meropenem day #3. We will check on the final culture results. The patient's procalcitonin 0.05. Most likely, we will discontinue meropenem in next 24 hours and complete with 4 to 7 days of doxycycline. Richard Saenz MD
[2017-06-11] MEDS: Albuterol-Ipratrop 3 mg / 0.5 (3 ml) UD IH PRN (23:34)
[2017-06-12] MEDS: Albuterol-Ipratrop 3 mg / 0.5 (3 ml) UD IH SCH ×4 (04:23→19:55)
[2017-06-12 08:39] LABS: BASO # 0.05 K/mm3 (0.0-2.0); BASO % 0.4 % (0.0-3.0); EOS # 0.3 (0.0-0.7); EOS % 2.7 % (1.5-5.0); GRAN # 8.07 (1.4-6.5); GRAN % 67.8 % (50.0-68.0); HEMOGLOBIN 15.6 g/dL (14.0-18.0); LYMPH # 2.7 (1.2-3.4); LYMPH % 22.5 % (22.0-35.0); MEAN CORPUSCULAR HEMOGLOBIN 32.6 pg (25.0-35.0); MEAN CORPUSCULAR HGB CONC 34.4 g/dl (31.0-37.0); MEAN PLATELET VOLUME 10.7 fl (7.0-11.0); MONO # 0.8 (0.1-0.6); MONO % 6.6 % (1.0-6.0); RBC 4.78 10^6/uL (3.5-6.1); RED CELL DISTRIBUTION WIDTH 14.2 % (11.5-14.5); WHITE BLOOD COUNT 11.9 10^3/ul (4.5-11.0)
[2017-06-12 09:03] LABS: ALB/GLOB RATIO 1.5 (1.1-1.8); ALBUMIN 4.6 g/dL (3.0-4.8); ALT/SGPT 62 U/L (7-56); AST/SGOT 30 U/L (17-59); BLOOD UREA NITROGEN 22 mg/dL (7-21); CALCIUM 9.5 mg/dL (8.4-10.5); GFR AFRICAN-AMERICAN > 60; GFR NON-AFRICAN AMERICAN > 60
--- NOTE | 2017-06-12 09:19 | CP.PCM.DIS ---
Provider - Provider Date of Admission: 06/08/17 12:12 Attending physician: Louis Peoples MD Primary care physician: Leah Diaz MD Consults: Cardio: Kassandra ID: [id number] Psych: Verito Time Spent in preparation of Discharge (in minutes): 35 Diagnosis - Discharge Diagnosis (1) CHF (congestive heart failure) Status: Chronic Priority: High (2) COPD (chronic obstructive pulmonary disease) Status: Chronic Priority: High (3) Alcohol intoxication Status: Resolved Priority: Medium (4) Depression Status: Chronic Priority: Medium Hospital Course - Lab Results Lab Results: Micro Results 06/08/17 12:30 Blood-Venous Blood Culture - Preliminary NO GROWTH AFTER 3 DAYS 06/09/17 01:00 Sputum Gram Stain - Final 06/09/17 01:00 Sputum Sputum Culture - Final Yeast Species 06/08/17 20:37 Urine,Catheterized Urine Culture - Final No Growth (<1,000 CFU/ML) 06/08/17 14:45 Naris MRSA Culture (Admit) - Final MRSA NOT DETECTED Most Recent Lab Values WBC 11.9 10^3/ul (4.5-11.0) H 06/12/17 08:20 RBC 4.78 10^6/uL (3.5-6.1) 06/12/17 08:20 Hgb 15.6 g/dL (14.0-18.0) 06/12/17 08:20 Hct 45.4 % (42.0-52.0) 06/12/17 08:20 MCV 95.0 fl (80.0-105.0) 06/12/17 08:20 MCH 32.6 pg (25.0-35.0) 06/12/17 08:20 MCHC 34.4 g/dl (31.0-37.0) 06/12/17 08:20 RDW 14.2 % (11.5-14.5) 06/12/17 08:20 Plt Count 172 10^3/uL (120.0-450.0) 06/12/17 08:20 MPV 10.7 fl (7.0-11.0) 06/12/17 08:20 Gran % 67.8 % (50.0-68.0) 06/12/17 08:20 Lymph % (Auto) 22.5 % (22.0-35.0) 06/12/17 08:20 [place] % (Auto) 6.6 % (1.0-6.0) H 06/12/17 08:20 Eos % (Auto) 2.7 % (1.5-5.0) 06/12/17 08:20 Baso % (Auto) 0.4 % (0.0-3.0) 06/12/17 08:20 Gran # 8.07 (1.4-6.5) H 06/12/17 08:20 Lymph # (Auto) 2.7 (1.2-3.4) 06/12/17 08:20 [place] # (Auto) 0.8 (0.1-0.6) H 06/12/17 08:20 Eos # (Auto) 0.3 (0.0-0.7) 06/12/17 08:20 Baso # (Auto) 0.05 K/mm3 (0.0-2.0) 06/12/17 08:20 PT 10.6 SECONDS (9.4-12.5) 06/08/17 11:38 INR 0.92 (0.93-1.08) L 06/08/17 11:38 APTT 31.3 Seconds (25.1-36.5) 06/08/17 11:38 pCO2 32 mm/Hg (35-45) L 06/08/17 12:10 pO2 30 mm/Hg (30-55) 06/08/17 16:57 HCO3 16.5 mmol/L (21-28) L 06/08/17 12:10 ABG pH 7.32 (7.35-7.45) L 06/08/17 12:10 ABG Total CO2 17.5 mmol.L (22-28) L 06/08/17 12:10 ABG O2 Saturation 99.7 % (95-98) H 06/08/17 12:10 ABG O2 Content 20.8 ML/dl (15-23) 06/08/17 12:10 ABG Base Excess -8.4 mmol/L (-2.0-3.0) L 06/08/17 12:10 ABG Hemoglobin 15.2 g/dL (11.7-17.4) 06/08/17 12:10 ABG Carboxyhemoglobin 1.8 % (0.5-1.5) H 06/08/17 12:10 POC ABG HHb (Measured) 0.3 % (0-5) 06/08/17 12:10 ABG Methemoglobin 1.3 % (0.0-3.0) 06/08/17 12:10 ABG O2 Capacity 20.9 mL/dl (16-24) 06/08/17 12:10 VBG pH 7.09 (7.32-7.43) L* 06/08/17 16:57 VBG pCO2 59.0 (40-60) 06/08/17 16:57 VBG HCO3 17.9 mmol/l (21-28) L 06/08/17 16:57 VBG Total CO2 19.7 mmol.L (22-28) L 06/08/17 16:57 VBG O2 Sat (Calc) 53.3 % (40-65) 06/08/17 16:57 VBG Base Excess -12.4 mmol/L (0.0-2.0) L 06/08/17 16:57 VBG Potassium 3.8 mmol/L (3.6-5.2) 06/08/17 11:38 Hgb O2 Saturation 96.6 % (95.0-98.0) 06/08/17 12:10 Sodium 129.0 mmol/L (132-148) L 06/08/17 16:57 Chloride 104.0 mmol/L (98-107) 06/08/17 16:57 Glucose 172 mg/dl (75-110) H 06/08/17 16:57 Lactate 3.9 mmol/L (0.7-2.1) H 06/08/17 16:57 FiO2 21.0 % 06/08/17 16:57 Sodium 141 mmol/L (132-148) 06/12/17 08:20 Potassium 4.0 mmol/L (3.6-5.0) 06/12/17 08:20 Chloride 99 mmol/L (98-107) 06/12/17 08:20 Carbon Dioxide 30 mmol/L (21-33) 06/12/17 08:20 Anion Gap 17 (10-20) 06/12/17 08:20 BUN 22 mg/dL (7-21) H 06/12/17 08:20 Creatinine 1.0 mg/dl (0.8-1.5) 06/12/17 08:20 Est GFR ( Amer) > 60 06/12/17 08:20 Est GFR (Non-Af Amer) > 60 06/12/17 08:20 Random Glucose 121 mg/dL (70-110) H 06/12/17 08:20 Calcium 9.5 mg/dL (8.4-10.5) 06/12/17 08:20 Phosphorus 3.8 mg/dL (2.5-4.5) 06/12/17 08:20 Magnesium 2.1 mg/dL (1.7-2.2) 06/12/17 08:20 Total Bilirubin 1.3 mg/dL (0.2-1.3) 06/12/17 08:20 Direct Bilirubin 0.4 mg/dL (0.0-0.4) 06/08/17 16:57 AST 30 U/L (17-59) 06/12/17 08:20 ALT 62 U/L (7-56) H 06/12/17 08:20 Alkaline Phosphatase 84 U/L (38-126) 06/12/17 08:20 Lactate Dehydrogenase 783 U/L (333-699) H 06/08/17 11:38 Total Creatine Kinase 90 U/L (35-230) 06/08/17 11:38 Troponin I 0.05 ng/mL 06/09/17 04:09 NT-Pro-B Natriuret Pep 1800 pg/mL (0-450) H 06/08/17 11:38 Total Protein 7.8 g/dL (5.8-8.3) 06/12/17 08:20 Albumin 4.6 g/dL (3.0-4.8) 06/12/17 08:20 Globulin 3.1 gm/dL 06/12/17 08:20 Albumin/Globulin Ratio 1.5 (1.1-1.8) 06/12/17 08:20 Procalcitonin < 0.05 NG/ML (0.19-0.49) L 06/08/17 16:57 Venous Blood Potassium 3.8 mmol/L (3.6-5.2) 06/08/17 11:38 Urine Color Yellow (YELLOW) 06/08/17 17:00 Urine Appearance Sl cloudy (CLEAR) 06/08/17 17:00 Urine pH 5.5 (4.7-8.0) 06/08/17 17:00 Ur Specific [place] 1.020 (1.005-1.035) 06/08/17 17:00 Urine Protein Negative mg/dL (<30 mg/dL) 06/08/17 17:00 Urine Glucose (UA) Negative mg/dL (NEGATIVE) 06/08/17 17:00 Urine Ketones Trace mg/dL (NEGATIVE) H 06/08/17 17:00 Urine Blood Large (NEGATIVE) H 06/08/17 17:00 Urine Nitrate Negative (NEGATIVE) 06/08/17 17:00 Urine Bilirubin Negative (NEGATIVE) 06/08/17 17:00 Urine Urobilinogen 0.2 E.U./dL (<1 E.U./dL) 06/08/17 17:00 Ur Leukocyte Esterase Negative Lucy/uL (NEGATIVE) 06/08/17 17:00 Urine RBC 20 - 25 /hpf (0-2) 06/08/17 17:00 Urine WBC Negative /hpf (0-6) 06/08/17 17:00 Urine Opiates Screen Negative (NEGATIVE) 06/08/17 20:37 Urine Methadone Screen Negative (NEGATIVE) 06/08/17 20:37 Ur Barbiturates Screen Negative (NEGATIVE) 06/08/17 20:37 Ur Phencyclidine Scrn Negative (NEGATIVE) 06/08/17 20:37 Ur Amphetamines Screen Negative (NEGATIVE) 06/08/17 20:37 U Benzodiazepines Scrn Negative (NEGATIVE) 06/08/17 20:37 U Oth Cocaine Metabols Negative (NEGATIVE) 06/08/17 20:37 U Cannabinoids Screen Negative (NEGATIVE) 06/08/17 20:37 Alcohol, Quantitative 98 mg/dL (0-10) H 06/08/17 11:38 - Hospital Course Hospital Course: This is a 56 yo M with PMH of HTN, COPD, CAD s/p 4 stents and AICD, CHF with EF 35%, AL, anxiety, depression, polysubstance abuse, and alcohol abuse who was admitted for evaluation and treatment of acutely worsening shortness of breath. While here, he was treated for COPD exacerbation vs CHF exacerbation, empirically covered for possible pneumonia, and was then treated for alcohol withdrawal. While here, he was seen by Cardio, ID, and Psych. As per ID, Merrem was discontinued, and patient will be continued on Doxycycline to finish a 4-7 day course. As per Cardio, he was restarted on his home cardio meds, and was also started on Aldactone. As per Psych, * . Patient was instructed to resume all home medications, to fill and take his new script for Aldactone as prescribed, and to cease all further alcohol intake. He was also instructed to finish out his course of Doxycycline ( electronically transmitted to in-house pharmacy for availability on discharge), and was warned not to stop early even if he was feeling better. He was also instructed to follow up with his PMD (Dr. Khanh Ley) within 1 week of discharge. Patient expressed understanding and agreement with these instructions. He was then discharged. Patient seen, reviewed, and discussed with attending, Dr. Peoples. Discharge Exam - Additional Findings Additional findings: - Constitutional Appears: Non-toxic, No Acute Distress - Head Exam Head Exam: ATRAUMATIC, NORMAL INSPECTION, NORMOCEPHALIC - Eye Exam Eye Exam: EOMI, Normal appearance. absent: Conjunctival injection, Scleral icterus Pupil Exam: absent: Irregular, Unequal - ENT Exam ENT Exam: Mucous Membranes Moist - Neck Exam Neck exam: Positive for: Full Rom, Normal appearance - Respiratory Exam Respiratory Exam: Clear to Auscultation Bilateral, NORMAL BREATHING PATTERN. Absent: wheezes/rales/rhonci, dyspnea with speech - Cardiovascular Exam Cardiovascular Exam: RRR, +S1, +S2. absent: JVD, Tachycardia - GI/Abdominal Exam GI & Abdominal Exam: Normal Bowel Sounds, Soft. absent: Distended (protuberant belly, but no palpable masses or appreciable fluid wave), Rigid, Firm, Tenderness - Extremities Exam Extremities exam: Positive for: normal capillary refill, pedal edema (trace pitting in bilateral LE from ankle to bottom 1/3rd of shins). Negative for: calf tenderness, joint swelling, tenderness - Neurological Exam awake and alert, following all commands appropriately, moving all extremities spontaneously motor grossly intact and equal No tremors appreciated with rest or movement - Psychiatric Exam Psychiatric exam: normal mood and affect - Skin Skin Exam: Dry, Intact, Normal Color Discharge Plan - Follow Up Plan Condition: CRITICAL Disposition: HOME/ ROUTINE Instructions: Heart Failure (ED) Referrals: Leah Diaz MD [Primary Care Provider] - Stephanie Longoria [Other] ([facility])
[2017-06-12] MEDS: Nystatin 100,000 Units/ml Oral Susp 5 ml UD PO SCH ×4 (09:34→21:43)
[2017-06-12] MEDS: Meropenem IV 1 gm in NS 50 ML IVPB SCH (09:44)
--- NOTE | 2017-06-12 12:11 | CP.PCM.PN ---
<Vitor Ludwig - Last Filed: 06/12/17 12:05> Subjective - Date & Time of Evaluation Date of Evaluation: 06/12/17 Time of Evaluation: 07:30 - Subjective Subjective: IM Progress Note for Hospitalist Service Patient seen and examined on floors. No acute events reported overnight, and no acute complaints this AM. Patient reports feeling better in general. Tapering down his Librium, pending tapering off and pending Psych eval for his depression. Denies chest pain, shortness of breath, nausea, emesis, diarrhea, constipation, focal weakness, tremors. Objective - Vital Signs/Intake and Output Vital Signs (last 24 hours): Temp Pulse Resp BP Pulse Ox 98 F 76 20 110/70 98 06/12/17 08:05 06/12/17 09:36 06/12/17 08:05 06/12/17 09:36 06/12/17 08:05 Intake and Output: 06/12/17 06/12/17 06:59 18:59 Intake Total 120 Balance 120 - Medications Medications: Current Medications Acetaminophen (Tylenol 325mg Tab) 650 mg PO Q6 PRN PRN Reason: Pain, moderate (4-7) Albuterol/Ipratropium (Duoneb 3 Mg/0.5 Mg (3 Ml) Ud) 3 ml IH [id number] [facility] Last Admin: 06/12/17 07:23 Dose: 3 ml Albuterol/Ipratropium (Duoneb 3 Mg/0.5 Mg (3 Ml) Ud) 3 ml IH Q2H PRN PRN Reason: Shortness of Breath Last Admin: 06/11/17 23:34 Dose: 3 ml Apixaban (Eliquis) 5 mg PO BID [facility] PRN Reason: Protocol Last Admin: 06/12/17 09:35 Dose: 5 mg Aspirin (Ecotrin) 81 mg PO DAILY [facility] Last Admin: 06/12/17 09:36 Dose: 81 mg Chlordiazepoxide (Librium) 25 mg PO Q8 [facility] Doxycycline Hyclate (Doryx) 100 mg PO Q12 [facility] PRN Reason: Protocol Stop: 06/18/17 10:01 Last Admin: 06/12/17 09:35 Dose: 100 mg Folic Acid (Folic Acid) 1 mg PO DAILY [facility] Last Admin: 06/12/17 09:36 Dose: 1 mg Furosemide (Lasix) 40 mg PO BID [facility] Last Admin: 06/12/17 09:36 Dose: 40 mg Meropenem (Merrem Iv 1 Gm Premix) 50 mls @ 100 mls/hr IVPB Q12 LIS PRN Reason: Protocol Stop: 06/18/17 10:01 Last Admin: 06/12/17 09:44 Dose: 100 mls/hr Lorazepam (Ativan) 1 mg IVP Q2H PRN; Protocol PRN Reason: Withdrawal Losartan Potassium (Cozaar) 25 mg PO DAILY [facility] Last Admin: 06/12/17 09:36 Dose: 25 mg Metoprolol Tartrate (Lopressor) 25 mg PO BID [facility] Last Admin: 06/12/17 09:35 Dose: 25 mg Multivitamins/Minerals (Therapeutic-M Tab) 1 tab PO 0800 [facility] Last Admin: 06/11/17 10:23 Dose: 1 tab Nystatin (Nystatin Oral Susp) 5 ml PO QID [facility] Last Admin: 06/12/17 09:34 Dose: 5 ml Spironolactone (Aldactone) 25 mg PO DAILY [facility] Last Admin: 06/12/17 09:36 Dose: 25 mg Thiamine HCl (Vitamin B1 Tab) 100 mg PO DAILY [facility] Last Admin: 06/12/17 09:36 Dose: 100 mg - Labs Labs: 06/12/17 08:20 06/12/17 08:20 PT 10.6 SECONDS (9.4-12.5) 06/08/17 11:38 INR 0.92 (0.93-1.08) L 06/08/17 11:38 APTT 31.3 Seconds (25.1-36.5) 06/08/17 11:38 - Additional Findings Additional findings: - Constitutional Appears: Non-toxic, No Acute Distress - Head Exam Head Exam: ATRAUMATIC, NORMAL INSPECTION, NORMOCEPHALIC - Eye Exam Eye Exam: EOMI, Normal appearance. absent: Conjunctival injection, Scleral icterus Pupil Exam: absent: Irregular, Unequal - ENT Exam ENT Exam: Mucous Membranes Moist - Neck Exam Neck exam: Positive for: Full Rom, Normal appearance - Respiratory Exam Respiratory Exam: Clear to Auscultation Bilateral, NORMAL BREATHING PATTERN. Absent: wheezes/rales/rhonci, dyspnea with speech - Cardiovascular Exam Cardiovascular Exam: RRR, +S1, +S2. absent: JVD, Tachycardia - GI/Abdominal Exam GI & Abdominal Exam: Normal Bowel Sounds, Soft. absent: Distended (protuberant belly, but no palpable masses or appreciable fluid wave), Rigid, Firm, Tenderness - Extremities Exam Extremities exam: Positive for: normal capillary refill, pedal edema (trace pitting in bilateral LE from ankle to bottom 1/3rd of shins). Negative for: calf tenderness, joint swelling, tenderness - Neurological Exam awake and alert, following all commands appropriately, moving all extremities spontaneously motor grossly intact and equal No tremors appreciated with rest or movement - Psychiatric Exam Psychiatric exam: normal mood and affect - Skin Skin Exam: Dry, Intact, Normal Color Assessment and Plan - Assessment and Plan (Free Text) Assessment: This is a 56 yo M with PMH of HTN, COPD, CAD s/p 4 stents and AICD, CHF with EF 35%, LA, anxiety, depression, polysubstance abuse, and alcohol abuse who presents to [facility] with acutely worsening shortness of breath that began today. He was admitted for acute shortness of breath, possible pending respiratory failure; his breathing and O2 saturations have improved, and he has finished withdrawing from alcohol. Pending taper off of Librium, and pending Psych eval for depression. Plan: 1) Shortness of breath - resolved - mixed COPD and CHF exacerbation - Duonebs q6 lis and q2 prn for COPD exacerbation - C/w lasix, aldactone, cozaar, lopressor as per Cardio - Merrem and Vanc discontinued, continue Doxy for total course 4-7 days as per ID (today day #4) - Cardio (Dr. Cannon) and ID (Dr. Saenz) consulted, appreciate all recs 2) Alcohol Withdrawl - resolved - CIWA protocol; AM score 1 - tapering librium from 50 q8 to 25 q8 x2 doses, then if tolerates well will taper down to 10mg q8 x2 doses; no doses of PRN ativan needed yet - c/w multivitamin, folic acid, thiamine 3) Deconditioned State - PT consulted- appreciate recommendations 4) Hx of Depression - psychiatry consulted- appreciate recommendations 5) Hx CAD, HTN - blood pressure reviewed, trended, and appreciated-within normal range - continue ASA and eliquis, - continue losartan, lasix, lopressor, and aldactone Dispo: Med/Surg, pending PT and Psych evals and recs, pending Librium taper, likely d/c tmr FEN: HHD, Thiamine, Folic Acid Access: Peripheral IV Consults: Cardio, ID, Psych, PT Ppx: Protonix for GI, Eliquis covers for DVT Patient seen, reviewed, and discussed with attending, Dr. Peoples. <Louis Peoples B - Last Filed: 06/13/17 16:13> Objective - Vital Signs/Intake and Output Vital Signs (last 24 hours): Temp Pulse Resp BP Pulse Ox 97.7 F 84 20 102/69 99 06/13/17 08:39 06/13/17 08:39 06/13/17 08:39 06/13/17 10:37 06/13/17 08:39 Intake and Output: 06/13/17 06/13/17 06:59 18:59 Intake Total 280 300 Balance 280 300 - Medications Medications: Current Medications Acetaminophen (Tylenol 325mg Tab) 650 mg PO Q6 PRN PRN Reason: Pain, moderate (4-7) Albuterol/Ipratropium (Duoneb 3 Mg/0.5 Mg (3 Ml) Ud) 3 ml IH [id number] [facility] Last Admin: 06/13/17 13:19 Dose: 3 ml Albuterol/Ipratropium (Duoneb 3 Mg/0.5 Mg (3 Ml) Ud) 3 ml IH Q2H PRN PRN Reason: Shortness of Breath Last Admin: 06/11/17 23:34 Dose: 3 ml Apixaban (Eliquis) 5 mg PO BID LIS PRN Reason: Protocol Last Admin: 06/13/17 10:37 Dose: 5 mg Aspirin (Ecotrin) 81 mg PO DAILY [facility] Last Admin: 06/13/17 10:37 Dose: 81 mg Chlordiazepoxide (Librium) 5 mg PO Q8 PRN; Protocol PRN Reason: Agitation Doxycycline Hyclate (Doryx) 100 mg PO Q12 LIS PRN Reason: Protocol Stop: 06/18/17 10:01 Last Admin: 06/13/17 10:37 Dose: 100 mg Folic Acid (Folic Acid) 1 mg PO DAILY [facility] Last Admin: 06/13/17 10:37 Dose: 1 mg Furosemide (Lasix) 40 mg PO BID [facility] Last Admin: 06/13/17 10:37 Dose: 40 mg Lorazepam (Ativan) 1 mg IVP Q2H PRN; Protocol PRN Reason: Withdrawal Losartan Potassium (Cozaar) 25 mg PO DAILY [facility] Last Admin: 06/13/17 10:37 Dose: 25 mg Metoprolol Tartrate (Lopressor) 25 mg PO BID [facility] Last Admin: 06/13/17 10:38 Dose: 25 mg Multivitamins/Minerals (Therapeutic-M Tab) 1 tab PO 0800 [facility] Last Admin: 06/13/17 10:38 Dose: 1 tab Nystatin (Nystatin Oral Susp) 5 ml PO QID [facility] Last Admin: 06/13/17 14:40 Dose: 5 ml Spironolactone (Aldactone) 25 mg PO DAILY [facility] Last Admin: 06/13/17 10:37 Dose: 25 mg Thiamine HCl (Vitamin B1 Tab) 100 mg PO DAILY [facility] Last Admin: 06/13/17 10:38 Dose: 100 mg - Labs Labs: 06/13/17 07:20 06/13/17 07:20 PT 10.6 SECONDS (9.4-12.5) 06/08/17 11:38 INR 0.92 (0.93-1.08) L 06/08/17 11:38 APTT 31.3 Seconds (25.1-36.5) 06/08/17 11:38 Attending/Attestation - Attestation I have personally seen and examined this patient.: Yes I have fully participated in the care of the patient.: Yes I have reviewed all pertinent clinical information, including history, physical exam and plan: Yes Notes (Text): I have seen and examined the patient at bedside. Agree with the above note with the following additions/ exceptions: Briefly this is 56 year old male with history significant for CAD, s/p ASHANTI, hypertension, hyperlipidemia, COPD, tobacco and alcohol abuse who presented with shortness of breath and alcohol intoxication. He was found to have decompensated CHF. Continue Lasix. Alcohol and tobacco cessation counselling provided. Continue to taper librium. Continue aspirin and eliquis. Compliance with medications was reiterated. Continue antibiotics as per ID for SIRS. Physical therapy evaluation requested. Upon discharge patient will be referred to [facility] clinic.
--- NOTE | 2017-06-12 15:41 | PN ---
DATE: SUBJECTIVE: The patient's shortness of breath has improved. He has mild cough. PHYSICAL EXAMINATION VITAL SIGNS: Blood pressure 110/70, heart rate 76, temperature 98, respirations 20. HEENT: Normocephalic. CHEST: Minimal rhonchi. HEART: S1 and S2 regular. EXTREMITIES: No edema. LABORATORY DATA: Hemoglobin and hematocrit 15.6 and 45.4, white count 11.9, platelet count 172,000. Today's SMA-7 is within normal limits except for glucose of 121 and BUN of 22. ASSESSMENT: 1. Exacerbation of congestive heart failure. 2. Ischemic cardiomyopathy. 3. Status post implantable cardioverter defibrillator placement. 4. Ethyl alcohol abuse. RECOMMENDATIONS: Continue current Aldactone, Ativan, Cozaar, doxycycline, aspirin, Eliquis, oral Lasix, Librium and Lopressor as well as IV meropenem. 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 Tyrell Cannon MD
[2017-06-12] MEDS: Multivitamin With Minerals Tab PO SCH (17:04)
--- NOTE | 2017-06-12 18:25 | CP.PCM.PN ---
Subjective - Date & Time of Evaluation Date of Evaluation: 06/12/17 Time of Evaluation: 13:05 - Subjective Subjective: Breathing better, no fevers, no diarrhea. Objective - Vital Signs/Intake and Output Vital Signs (last 24 hours): Temp Pulse Resp BP Pulse Ox 98 F 76 20 110/71 98 06/12/17 08:05 06/12/17 08:05 06/12/17 08:05 06/12/17 08:05 06/12/17 08:05 Intake and Output: 06/12/17 06/12/17 06:59 18:59 Intake Total 120 Balance 120 - Medications Medications: Current Medications Acetaminophen (Tylenol 325mg Tab) 650 mg PO Q6 PRN PRN Reason: Pain, moderate (4-7) Albuterol/Ipratropium (Duoneb 3 Mg/0.5 Mg (3 Ml) Ud) 3 ml IH [id number] [facility] Last Admin: 06/12/17 07:23 Dose: 3 ml Albuterol/Ipratropium (Duoneb 3 Mg/0.5 Mg (3 Ml) Ud) 3 ml IH Q2H PRN PRN Reason: Shortness of Breath Last Admin: 06/11/17 23:34 Dose: 3 ml Apixaban (Eliquis) 5 mg PO BID TU PRN Reason: Protocol Last Admin: 06/11/17 17:52 Dose: 5 mg Aspirin (Ecotrin) 81 mg PO DAILY [facility] Last Admin: 06/11/17 10:19 Dose: 81 mg Chlordiazepoxide (Librium) 50 mg PO Q8 [facility] Last Admin: 06/12/17 05:43 Dose: 50 mg Doxycycline Hyclate (Doryx) 100 mg PO Q12 TU PRN Reason: Protocol Stop: 06/18/17 10:01 Last Admin: 06/11/17 21:12 Dose: 100 mg Folic Acid (Folic Acid) 1 mg PO DAILY [facility] Last Admin: 06/11/17 10:20 Dose: 1 mg Furosemide (Lasix) 40 mg PO BID [facility] Last Admin: 06/11/17 17:51 Dose: 40 mg Meropenem (Merrem Iv 1 Gm Premix) 50 mls @ 100 mls/hr IVPB Q12 TU PRN Reason: Protocol Stop: 06/18/17 10:01 Last Admin: 06/11/17 21:13 Dose: 100 mls/hr Lorazepam (Ativan) 1 mg IVP Q2H PRN; Protocol PRN Reason: Withdrawal Losartan Potassium (Cozaar) 25 mg PO DAILY [facility] Last Admin: 06/11/17 10:20 Dose: 25 mg Metoprolol Tartrate (Lopressor) 25 mg PO BID [facility] Last Admin: 06/11/17 17:51 Dose: 25 mg Multivitamins/Minerals (Therapeutic-M Tab) 1 tab PO 0800 [facility] Last Admin: 06/11/17 10:23 Dose: 1 tab Nystatin (Nystatin Oral Susp) 5 ml PO QID [facility] Spironolactone (Aldactone) 25 mg PO DAILY [facility] Last Admin: 06/11/17 10:19 Dose: 25 mg Thiamine HCl (Vitamin B1 Tab) 100 mg PO DAILY [facility] Last Admin: 06/11/17 10:19 Dose: 100 mg - Labs Labs: 06/11/17 07:30 06/11/17 07:30 PT 10.6 SECONDS (9.4-12.5) 06/08/17 11:38 INR 0.92 (0.93-1.08) L 06/08/17 11:38 APTT 31.3 Seconds (25.1-36.5) 06/08/17 11:38 - Constitutional Appears: Chronically Ill - Head Exam Head Exam: NORMAL INSPECTION - Respiratory Exam Respiratory Exam: Decreased Breath Sounds - Cardiovascular Exam Cardiovascular Exam: +S1, +S2 - GI/Abdominal Exam GI & Abdominal Exam: Soft. absent: Tenderness Assessment and Plan - Assessment and Plan (Free Text) Plan: Assessment Systemic Inflammatory Response Syndrome with hypoxic respiratory failure, consider acute on chronic CHF, R/O pneumonia, in this patient with probable alcohol withdrawal syndrome HTN COPD CAD S/P PCI chronic CHF S/P AICD placement anxiety depression history of polysubstance abuse obesity with BMI 32 Plan continue Doxycycline day 4 to complete 4-7 days of therapy; will d/c Merrem since cutures are negative and PCT is less than 0.05 will continue to monitor clinically
[2017-06-12 22:51] VITALS: RESP 20
[2017-06-13] MEDS: Albuterol-Ipratrop 3 mg / 0.5 (3 ml) UD IH SCH ×3 (02:36→13:19)
--- NOTE | 2017-06-13 02:42 | CON ---
DATE: HISTORY OF PRESENT ILLNESS: Patient is 56-year-old male with reported history of alcohol use disorder, history of depression. Patient was admitted on the medical side for alcohol withdrawal symptoms. Patient has multiple medical issues including COPD, CHF, prior DC. Psych consult was called for evaluation of depressive symptoms. Patient has history of being admitted to the psychiatric inpatient unit in the past. Patient was seen and examined today, discussed with the medical staff as well as nursing staff. Patient presented to be alert and oriented, pleasant, cooperative. Patient reported that he suffered from alcohol use disorder and he has severe craving for alcohol. Patient reported never been on naltrexone. This scenario writer educated the patient about this medication and patient wants to think about this medication to be prescribed. Besides that patient reported that at times he feels depressed, but denied being depressed at the moment of the interview. Denied feeling hopelessness or helplessness. Denied thoughts of harming himself or others. Patient also denied any visual, auditory, or tactile hallucinations. Denied paranoid ideation. Patient does not present to be psychotic. Patient reported that he has fair appetite and sleep. VITAL SIGNS: Reviewed, stable. Temperature 98, pulse is 76, blood pressure 110/70, respiration 26, and oxygen saturation is 98. MEDICATIONS: Reviewed. Tylenol, DuoNeb, , aspirin, Librium 10 mg p.o. every 8 hours scheduled. Patient is on tapering dose of Librium. Patient is on doxycycline, folic acid, Lasix, Ativan 1 mg IV push every 2 hours as needed. Patient did not require any Ativan IV push. Patient is on Cozaar, Lopressor, meropenem, multivitamins, nystatin, spironolactone, and vitamin B1. LABORATORY DATA: Reviewed. Most recent was from today, mild leukocytosis, no signs of granulocytosis. Chemistry reviewed. AST and ALT are trending down. Toxicology reviewed. Alcohol level at the time of admission was 98. Previous history also reviewed. Patient was in [facility] in 12/2016. Patient was referred to [facility], but patient said that he never followed up because he had difficulty for transportation because he has financial issues and he is not able to afford transportation. Patient lives alone. Patient reported that he has craving for alcohol as this scenario writer mentioned above. MENTAL STATUS EXAMINATION: Patient was pleasant, cooperative. SOCIAL HISTORY: Appropriate, fair eye contact. Speech was normal rate, tone, quality, and quantity. Mood described as, I feel fine. Affect was constricted. Mood congruent. Thought process was coherent and goal directed. Thought content, patient denied visual, auditory, or tactile hallucinations. Denied paranoid ideation. Patient denied thoughts of harming himself or others. Denied intent or plan. Insight and judgment seems to be limited into his alcohol addiction, but improving. Impulses are well controlled. IMPRESSION: Rule out substance-induced mood disorder, rule out major depressive disorder, rule out anxiety due to general medical condition. PLAN: Continue current management. Continue current medications, tapering dose of Librium, multivitamins, thiamine, and folic acid. Medical team was advised to initiate naltrexone. This scenario writer educated the patient about the risks, benefits, and alternatives. Patient was provided with information about outpatient providers in this area, [facility], [facility], [facility], and private psychiatrist. This scenario writer will sign off. Should you have any questions, give me a call back. Patient pose no imminent danger to self or others. Shonda Sellers MD
[2017-06-13 07:51] LABS: BASO # 0.05 K/mm3 (0.0-2.0); BASO % 0.5 % (0.0-3.0); EOS # 0.3 (0.0-0.7); EOS % 2.5 % (1.5-5.0); GRAN # 6.54 (1.4-6.5); GRAN % 64.5 % (50.0-68.0); HEMOGLOBIN 14.5 g/dL (14.0-18.0); LYMPH # 2.4 (1.2-3.4); LYMPH % 23.8 % (22.0-35.0); MEAN CELL VOLUME 94.1 fl (80.0-105.0); MEAN CORPUSCULAR HEMOGLOBIN 31.9 pg (25.0-35.0); MEAN CORPUSCULAR HGB CONC 33.9 g/dl (31.0-37.0); MEAN PLATELET VOLUME 11.2 fl (7.0-11.0); MONO # 0.9 (0.1-0.6); MONO % 8.7 % (1.0-6.0); RBC 4.55 10^6/uL (3.5-6.1); WHITE BLOOD COUNT 10.1 10^3/ul (4.5-11.0)
[2017-06-13 08:03] LABS: ALB/GLOB RATIO 1.4 (1.1-1.8); ALT/SGPT 52 U/L (7-56); AST/SGOT 30 U/L (17-59); BLOOD UREA NITROGEN 23 mg/dL (7-21); CALCIUM 9.3 mg/dL (8.4-10.5); GFR AFRICAN-AMERICAN > 60; GFR NON-AFRICAN AMERICAN > 60
[2017-06-13 08:39] VITALS: O2SAT 99
[2017-06-13] MEDS: Nystatin 100,000 Units/ml Oral Susp 5 ml UD PO SCH ×2 (10:38→14:40)
[2017-06-13] MEDS: Multivitamin With Minerals Tab PO SCH (10:38)
--- NOTE | 2017-06-13 14:14 | CP.PCM.DIS ---
Addendum entered and electronically signed by Vitor Ludwig DO 06/13/17 14:32: Correction to Hospital Course: Patient reports already scheduled to meet with his [employer], Dr. Cornell, this Monday (01/16/18), instructed to maintain the appointment. Original Note: <Vitor Ludwig - Last Filed: 06/13/17 14:09> Provider - Provider Date of Admission: 06/08/17 12:12 Attending physician: Louis Peoples MD Primary care physician: Leah Diaz MD Consults: Cardio: Kassandra ID: [email or web address] Psych: Abdsamanthaadov Time Spent in preparation of Discharge (in minutes): 35 Diagnosis - Discharge Diagnosis (1) Alcohol withdrawal Status: Resolved Priority: High (2) CHF (congestive heart failure) Status: Chronic Priority: Medium (3) COPD (chronic obstructive pulmonary disease) Status: Chronic Priority: Medium (4) Dyspnea Status: Resolved Priority: High (5) Depression Status: Chronic Priority: Medium Hospital Course - Lab Results Lab Results: Micro Results 06/08/17 12:30 Blood-Venous Blood Culture - Final NO GROWTH AFTER 5 DAYS 06/08/17 12:30 Blood-Venous Gram Stain - Final TEST NOT PERFORMED 06/09/17 01:00 Sputum Gram Stain - Final 06/09/17 01:00 Sputum Sputum Culture - Final Yeast Species 06/08/17 20:37 Urine,Catheterized Urine Culture - Final No Growth (<1,000 CFU/ML) 06/08/17 14:45 Naris MRSA Culture (Admit) - Final MRSA NOT DETECTED Most Recent Lab Values WBC 10.1 10^3/ul (4.5-11.0) 06/13/17 07:20 RBC 4.55 10^6/uL (3.5-6.1) 06/13/17 07:20 Hgb 14.5 g/dL (14.0-18.0) 06/13/17 07:20 Hct 42.8 % (42.0-52.0) 06/13/17 07:20 MCV 94.1 fl (80.0-105.0) 06/13/17 07:20 MCH 31.9 pg (25.0-35.0) 06/13/17 07:20 MCHC 33.9 g/dl (31.0-37.0) 06/13/17 07:20 RDW 14.0 % (11.5-14.5) 06/13/17 07:20 Plt Count 169 10^3/uL (120.0-450.0) 06/13/17 07:20 MPV 11.2 fl (7.0-11.0) H 06/13/17 07:20 Gran % 64.5 % (50.0-68.0) 06/13/17 07:20 Lymph % (Auto) 23.8 % (22.0-35.0) 06/13/17 07:20 [place] % (Auto) 8.7 % (1.0-6.0) H 06/13/17 07:20 Eos % (Auto) 2.5 % (1.5-5.0) 06/13/17 07:20 Baso % (Auto) 0.5 % (0.0-3.0) 06/13/17 07:20 Gran # 6.54 (1.4-6.5) H 06/13/17 07:20 Lymph # (Auto) 2.4 (1.2-3.4) 06/13/17 07:20 [place] # (Auto) 0.9 (0.1-0.6) H 06/13/17 07:20 Eos # (Auto) 0.3 (0.0-0.7) 06/13/17 07:20 Baso # (Auto) 0.05 K/mm3 (0.0-2.0) 06/13/17 07:20 PT 10.6 SECONDS (9.4-12.5) 06/08/17 11:38 INR 0.92 (0.93-1.08) L 06/08/17 11:38 APTT 31.3 Seconds (25.1-36.5) 06/08/17 11:38 pCO2 32 mm/Hg (35-45) L 06/08/17 12:10 pO2 30 mm/Hg (30-55) 06/08/17 16:57 HCO3 16.5 mmol/L (21-28) L 06/08/17 12:10 ABG pH 7.32 (7.35-7.45) L 06/08/17 12:10 ABG Total CO2 17.5 mmol.L (22-28) L 06/08/17 12:10 ABG O2 Saturation 99.7 % (95-98) H 06/08/17 12:10 ABG O2 Content 20.8 ML/dl (15-23) 06/08/17 12:10 ABG Base Excess -8.4 mmol/L (-2.0-3.0) L 06/08/17 12:10 ABG Hemoglobin 15.2 g/dL (11.7-17.4) 06/08/17 12:10 ABG Carboxyhemoglobin 1.8 % (0.5-1.5) H 06/08/17 12:10 POC ABG HHb (Measured) 0.3 % (0-5) 06/08/17 12:10 ABG Methemoglobin 1.3 % (0.0-3.0) 06/08/17 12:10 ABG O2 Capacity 20.9 mL/dl (16-24) 06/08/17 12:10 VBG pH 7.09 (7.32-7.43) L* 06/08/17 16:57 VBG pCO2 59.0 (40-60) 06/08/17 16:57 VBG HCO3 17.9 mmol/l (21-28) L 06/08/17 16:57 VBG Total CO2 19.7 mmol.L (22-28) L 06/08/17 16:57 VBG O2 Sat (Calc) 53.3 % (40-65) 06/08/17 16:57 VBG Base Excess -12.4 mmol/L (0.0-2.0) L 06/08/17 16:57 VBG Potassium 3.8 mmol/L (3.6-5.2) 06/08/17 11:38 Hgb O2 Saturation 96.6 % (95.0-98.0) 06/08/17 12:10 Sodium 129.0 mmol/L (132-148) L 06/08/17 16:57 Chloride 104.0 mmol/L (98-107) 06/08/17 16:57 Glucose 172 mg/dl (75-110) H 06/08/17 16:57 Lactate 3.9 mmol/L (0.7-2.1) H 06/08/17 16:57 FiO2 21.0 % 06/08/17 16:57 Sodium 139 mmol/L (132-148) 06/13/17 07:20 Potassium 4.5 mmol/L (3.6-5.0) 06/13/17 07:20 Chloride 100 mmol/L (98-107) 06/13/17 07:20 Carbon Dioxide 29 mmol/L (21-33) 06/13/17 07:20 Anion Gap 15 (10-20) 06/13/17 07:20 BUN 23 mg/dL (7-21) H 06/13/17 07:20 Creatinine 0.9 mg/dl (0.8-1.5) 06/13/17 07:20 Est GFR ( Amer) > 60 06/13/17 07:20 Est GFR (Non-Af Amer) > 60 06/13/17 07:20 Random Glucose 112 mg/dL (70-110) H 06/13/17 07:20 Calcium 9.3 mg/dL (8.4-10.5) 06/13/17 07:20 Phosphorus 4.1 mg/dL (2.5-4.5) 06/13/17 07:20 Magnesium 2.2 mg/dL (1.7-2.2) 06/13/17 07:20 Total Bilirubin 0.9 mg/dL (0.2-1.3) 06/13/17 07:20 Direct Bilirubin 0.4 mg/dL (0.0-0.4) 06/08/17 16:57 AST 30 U/L (17-59) 06/13/17 07:20 ALT 52 U/L (7-56) 06/13/17 07:20 Alkaline Phosphatase 75 U/L (38-126) 06/13/17 07:20 Lactate Dehydrogenase 783 U/L (333-699) H 06/08/17 11:38 Total Creatine Kinase 90 U/L (35-230) 06/08/17 11:38 Troponin I 0.05 ng/mL 06/09/17 04:09 NT-Pro-B Natriuret Pep 1800 pg/mL (0-450) H 06/08/17 11:38 Total Protein 7.0 g/dL (5.8-8.3) 06/13/17 07:20 Albumin 4.0 g/dL (3.0-4.8) 06/13/17 07:20 Globulin 3.0 gm/dL 06/13/17 07:20 Albumin/Globulin Ratio 1.4 (1.1-1.8) 06/13/17 07:20 Procalcitonin < 0.05 NG/ML (0.19-0.49) L 06/08/17 16:57 Venous Blood Potassium 3.8 mmol/L (3.6-5.2) 06/08/17 11:38 Urine Color Yellow (YELLOW) 06/08/17 17:00 Urine Appearance Sl cloudy (CLEAR) 06/08/17 17:00 Urine pH 5.5 (4.7-8.0) 06/08/17 17:00 Ur Specific [place] 1.020 (1.005-1.035) 06/08/17 17:00 Urine Protein Negative mg/dL (<30 mg/dL) 06/08/17 17:00 Urine Glucose (UA) Negative mg/dL (NEGATIVE) 06/08/17 17:00 Urine Ketones Trace mg/dL (NEGATIVE) H 06/08/17 17:00 Urine Blood Large (NEGATIVE) H 06/08/17 17:00 Urine Nitrate Negative (NEGATIVE) 06/08/17 17:00 Urine Bilirubin Negative (NEGATIVE) 06/08/17 17:00 Urine Urobilinogen 0.2 E.U./dL (<1 E.U./dL) 06/08/17 17:00 Ur Leukocyte Esterase Negative Lucy/uL (NEGATIVE) 06/08/17 17:00 Urine RBC 20 - 25 /hpf (0-2) 06/08/17 17:00 Urine WBC Negative /hpf (0-6) 06/08/17 17:00 Urine Opiates Screen Negative (NEGATIVE) 06/08/17 20:37 Urine Methadone Screen Negative (NEGATIVE) 06/08/17 20:37 Ur Barbiturates Screen Negative (NEGATIVE) 06/08/17 20:37 Ur Phencyclidine Scrn Negative (NEGATIVE) 06/08/17 20:37 Ur Amphetamines Screen Negative (NEGATIVE) 06/08/17 20:37 U Benzodiazepines Scrn Negative (NEGATIVE) 06/08/17 20:37 U Oth Cocaine Metabols Negative (NEGATIVE) 06/08/17 20:37 U Cannabinoids Screen Negative (NEGATIVE) 06/08/17 20:37 Alcohol, Quantitative 98 mg/dL (0-10) H 06/08/17 11:38 - Hospital Course Hospital Course: This is a 56 yo M with PMH of HTN, COPD, CAD s/p 4 stents and AICD, CHF with EF 35%, SC, anxiety, depression, polysubstance abuse, and alcohol abuse who was admitted for evaluation and treatment of acutely worsening shortness of breath. While here, he was treated for COPD exacerbation vs CHF exacerbation, empirically covered for possible pneumonia, and was then treated for alcohol withdrawal. While here, he was seen by Cardio, ID, and Psych. As per ID, Merrem was discontinued, and patient will be continued on Doxycycline to finish a 4-7 day course. As per Cardio, he was restarted on his home cardio meds, and was also started on Aldactone. As per Psych, follow up with outpatient mental health services, can potentially be started on Naltrexone for alcohol cravings, but this would need to be done as an outpatient at a site he follows regularly at (given referral for [facility]). Patient was instructed to resume all home medications, to fill and take his new prescription for Aldactone, and to cease ALL further alcohol intake. He was also instructed to finish out his course of Doxycycline, and was warned not to stop early even if he was feeling better. He was also instructed to follow up with his PMD (Dr. Khanh Ley) within 1 week of discharge, his [employer] [facility] at [facility] within 1 week, and with [facility] as an outpatient. All scripts were electronically transmitted to in-house outpatient pharmacy to be available to patient at time of discharge, and he was instructed to take only as prescribed. Patient expressed understanding and agreement with these instructions. He was then discharged. Patient seen, reviewed, and discussed with attending, Dr. Peoples. Discharge Exam - Additional Findings Additional findings: - Constitutional Appears: Non-toxic, No Acute Distress - Head Exam Head Exam: ATRAUMATIC, NORMAL INSPECTION, NORMOCEPHALIC - Eye Exam Eye Exam: EOMI, Normal appearance. absent: Conjunctival injection, Scleral icterus Pupil Exam: absent: Irregular, Unequal - ENT Exam ENT Exam: Mucous Membranes Moist - Neck Exam Neck exam: Positive for: Full Rom, Normal appearance - Respiratory Exam Respiratory Exam: Clear to Auscultation Bilateral, NORMAL BREATHING PATTERN. Absent: wheezes/rales/rhonci, dyspnea with speech - Cardiovascular Exam Cardiovascular Exam: RRR, +S1, +S2. absent: JVD, Tachycardia - GI/Abdominal Exam GI & Abdominal Exam: Normal Bowel Sounds, Soft. absent: Distended (protuberant belly, but no palpable masses or appreciable fluid wave), Rigid, Firm, Tenderness - Extremities Exam Extremities exam: Positive for: normal capillary refill, pedal edema (trace pitting in bilateral LE from ankle to bottom 1/3rd of shins). Negative for: calf tenderness, joint swelling, tenderness - Neurological Exam awake and alert, following all commands appropriately, moving all extremities spontaneously motor grossly intact and equal No tremors appreciated with rest or movement - Psychiatric Exam Psychiatric exam: normal mood and affect - Skin Skin Exam: Dry, Intact, Normal Color Discharge Plan - Discharge Medications Prescriptions: Doxycycline Hyclate [Doryx] 100 mg PO Q12 #5 cap Losartan [Cozaar] 25 mg PO DAILY #30 tab Spironolactone [Aldactone] 25 mg PO DAILY #30 tab - Follow Up Plan Condition: IMPROVED Disposition: HOME/ ROUTINE Instructions: Alcohol Use - When Is Drinking a Problem?, Exacerbation of COPD ( DC), Alcohol Withdrawal (DC), Effects of Alcohol on Your Health, Heart Failure ( ED) Additional Instructions: Please avoid ALL future alcohol use; ANY further use could be extremely harmful to your health. There is no lesser amount of alcohol that is safe for you. Please stop taking your current dose of Cozaar, and start the new dose you have been prescribed (25mg by mouth daily). Please take all new prescriptions as instructed (Aldactone and Doxycycline). They have been electronically transmitted to the in-house outpatient pharmacy to be available to you when you leave the hospital. Complete the full course of the antibiotic (Doxycycline) you have been prescribed. Do not stop taking it early because you feel better. Please resume all other home medications as previously prescribed. Please follow up with your PMD (Dr. Khanh Ley) within 1 week of discharge. Please follow up with you outpatient mental health provider (a referral has been provided if you don't have one) for possibility of being started on Naltrexone for your alcohol cravings. Please resume follow up with your [employer] at [facility] within 1 week of discharge. Please go to a hospital if you experience new or concerning symptoms. Referrals: Stephanie Longoria [Other] ([facility]) Alcoholics Anonymous [Outside] [facility] [Outside] <Louis Peoples - Last Filed: 06/13/17 16:22> Provider - Provider Date of Admission: 06/08/17 12:12 Attending physician: Louis Peoples MD Primary care physician: Leah Diaz MD Hospital Course - Lab Results Lab Results: Micro Results 06/08/17 12:30 Blood-Venous Blood Culture - Final NO GROWTH AFTER 5 DAYS 06/08/17 12:30 Blood-Venous Gram Stain - Final TEST NOT PERFORMED 06/09/17 01:00 Sputum Gram Stain - Final 06/09/17 01:00 Sputum Sputum Culture - Final Yeast Species 06/08/17 20:37 Urine,Catheterized Urine Culture - Final No Growth (<1,000 CFU/ML) 06/08/17 14:45 Naris MRSA Culture (Admit) - Final MRSA NOT DETECTED Most Recent Lab Values WBC 10.1 10^3/ul (4.5-11.0) 06/13/17 07:20 RBC 4.55 10^6/uL (3.5-6.1) 06/13/17 07:20 Hgb 14.5 g/dL (14.0-18.0) 06/13/17 07:20 Hct 42.8 % (42.0-52.0) 06/13/17 07:20 MCV 94.1 fl (80.0-105.0) 06/13/17 07:20 MCH 31.9 pg (25.0-35.0) 06/13/17 07:20 MCHC 33.9 g/dl (31.0-37.0) 06/13/17 07:20 RDW 14.0 % (11.5-14.5) 06/13/17 07:20 Plt Count 169 10^3/uL (120.0-450.0) 06/13/17 07:20 MPV 11.2 fl (7.0-11.0) H 06/13/17 07:20 Gran % 64.5 % (50.0-68.0) 06/13/17 07:20 Lymph % (Auto) 23.8 % (22.0-35.0) 06/13/17 07:20 [place] % (Auto) 8.7 % (1.0-6.0) H 06/13/17 07:20 Eos % (Auto) 2.5 % (1.5-5.0) 06/13/17 07:20 Baso % (Auto) 0.5 % (0.0-3.0) 06/13/17 07:20 Gran # 6.54 (1.4-6.5) H 06/13/17 07:20 Lymph # (Auto) 2.4 (1.2-3.4) 06/13/17 07:20 [place] # (Auto) 0.9 (0.1-0.6) H 06/13/17 07:20 Eos # (Auto) 0.3 (0.0-0.7) 06/13/17 07:20 Baso # (Auto) 0.05 K/mm3 (0.0-2.0) 06/13/17 07:20 PT 10.6 SECONDS (9.4-12.5) 06/08/17 11:38 INR 0.92 (0.93-1.08) L 06/08/17 11:38 APTT 31.3 Seconds (25.1-36.5) 06/08/17 11:38 pCO2 32 mm/Hg (35-45) L 06/08/17 12:10 pO2 30 mm/Hg (30-55) 06/08/17 16:57 HCO3 16.5 mmol/L (21-28) L 06/08/17 12:10 ABG pH 7.32 (7.35-7.45) L 06/08/17 12:10 ABG Total CO2 17.5 mmol.L (22-28) L 06/08/17 12:10 ABG O2 Saturation 99.7 % (95-98) H 06/08/17 12:10 ABG O2 Content 20.8 ML/dl (15-23) 06/08/17 12:10 ABG Base Excess -8.4 mmol/L (-2.0-3.0) L 06/08/17 12:10 ABG Hemoglobin 15.2 g/dL (11.7-17.4) 06/08/17 12:10 ABG Carboxyhemoglobin 1.8 % (0.5-1.5) H 06/08/17 12:10 POC ABG HHb (Measured) 0.3 % (0-5) 06/08/17 12:10 ABG Methemoglobin 1.3 % (0.0-3.0) 06/08/17 12:10 ABG O2 Capacity 20.9 mL/dl (16-24) 06/08/17 12:10 VBG pH 7.09 (7.32-7.43) L* 06/08/17 16:57 VBG pCO2 59.0 (40-60) 06/08/17 16:57 VBG HCO3 17.9 mmol/l (21-28) L 06/08/17 16:57 VBG Total CO2 19.7 mmol.L (22-28) L 06/08/17 16:57 VBG O2 Sat (Calc) 53.3 % (40-65) 06/08/17 16:57 VBG Base Excess -12.4 mmol/L (0.0-2.0) L 06/08/17 16:57 VBG Potassium 3.8 mmol/L (3.6-5.2) 06/08/17 11:38 Hgb O2 Saturation 96.6 % (95.0-98.0) 06/08/17 12:10 Sodium 129.0 mmol/L (132-148) L 06/08/17 16:57 Chloride 104.0 mmol/L (98-107) 06/08/17 16:57 Glucose 172 mg/dl (75-110) H 06/08/17 16:57 Lactate 3.9 mmol/L (0.7-2.1) H 06/08/17 16:57 FiO2 21.0 % 06/08/17 16:57 Sodium 139 mmol/L (132-148) 06/13/17 07:20 Potassium 4.5 mmol/L (3.6-5.0) 06/13/17 07:20 Chloride 100 mmol/L (98-107) 06/13/17 07:20 Carbon Dioxide 29 mmol/L (21-33) 06/13/17 07:20 Anion Gap 15 (10-20) 06/13/17 07:20 BUN 23 mg/dL (7-21) H 06/13/17 07:20 Creatinine 0.9 mg/dl (0.8-1.5) 06/13/17 07:20 Est GFR ( Amer) > 60 06/13/17 07:20 Est GFR (Non-Af Amer) > 60 06/13/17 07:20 Random Glucose 112 mg/dL (70-110) H 06/13/17 07:20 Calcium 9.3 mg/dL (8.4-10.5) 06/13/17 07:20 Phosphorus 4.1 mg/dL (2.5-4.5) 06/13/17 07:20 Magnesium 2.2 mg/dL (1.7-2.2) 06/13/17 07:20 Total Bilirubin 0.9 mg/dL (0.2-1.3) 06/13/17 07:20 Direct Bilirubin 0.4 mg/dL (0.0-0.4) 06/08/17 16:57 AST 30 U/L (17-59) 06/13/17 07:20 ALT 52 U/L (7-56) 06/13/17 07:20 Alkaline Phosphatase 75 U/L (38-126) 06/13/17 07:20 Lactate Dehydrogenase 783 U/L (333-699) H 06/08/17 11:38 Total Creatine Kinase 90 U/L (35-230) 06/08/17 11:38 Troponin I 0.05 ng/mL 06/09/17 04:09 NT-Pro-B Natriuret Pep 1800 pg/mL (0-450) H 06/08/17 11:38 Total Protein 7.0 g/dL (5.8-8.3) 06/13/17 07:20 Albumin 4.0 g/dL (3.0-4.8) 06/13/17 07:20 Globulin 3.0 gm/dL 06/13/17 07:20 Albumin/Globulin Ratio 1.4 (1.1-1.8) 06/13/17 07:20 Procalcitonin < 0.05 NG/ML (0.19-0.49) L 06/08/17 16:57 Venous Blood Potassium 3.8 mmol/L (3.6-5.2) 06/08/17 11:38 Urine Color Yellow (YELLOW) 06/08/17 17:00 Urine Appearance Sl cloudy (CLEAR) 06/08/17 17:00 Urine pH 5.5 (4.7-8.0) 06/08/17 17:00 Ur Specific [place] 1.020 (1.005-1.035) 06/08/17 17:00 Urine Protein Negative mg/dL (<30 mg/dL) 06/08/17 17:00 Urine Glucose (UA) Negative mg/dL (NEGATIVE) 06/08/17 17:00 Urine Ketones Trace mg/dL (NEGATIVE) H 06/08/17 17:00 Urine Blood Large (NEGATIVE) H 06/08/17 17:00 Urine Nitrate Negative (NEGATIVE) 06/08/17 17:00 Urine Bilirubin Negative (NEGATIVE) 06/08/17 17:00 Urine Urobilinogen 0.2 E.U./dL (<1 E.U./dL) 06/08/17 17:00 Ur Leukocyte Esterase Negative Lucy/uL (NEGATIVE) 06/08/17 17:00 Urine RBC 20 - 25 /hpf (0-2) 06/08/17 17:00 Urine WBC Negative /hpf (0-6) 06/08/17 17:00 Urine Opiates Screen Negative (NEGATIVE) 06/08/17 20:37 Urine Methadone Screen Negative (NEGATIVE) 06/08/17 20:37 Ur Barbiturates Screen Negative (NEGATIVE) 06/08/17 20:37 Ur Phencyclidine Scrn Negative (NEGATIVE) 06/08/17 20:37 Ur Amphetamines Screen Negative (NEGATIVE) 06/08/17 20:37 U Benzodiazepines Scrn Negative (NEGATIVE) 06/08/17 20:37 U Oth Cocaine Metabols Negative (NEGATIVE) 06/08/17 20:37 U Cannabinoids Screen Negative (NEGATIVE) 06/08/17 20:37 Alcohol, Quantitative 98 mg/dL (0-10) H 06/08/17 11:38 Attending/Attestation - Attestation I have personally seen and examined this patient.: Yes I have fully participated in the care of the patient.: Yes I have reviewed all pertinent clinical information, including history, physical exam and plan: Yes Notes (Text): I have seen and examined the patient at bedside. Agree with the above note.
--- NOTE | 2017-06-13 17:21 | PN ---
DATE: SUBJECTIVE: The patient's shortness of breath has improved. PHYSICAL EXAMINATION: VITAL SIGNS: Blood pressure 102/69, heart rate 84, temperature 97.7, respirations 20. HEENT: Normocephalic. CHEST: Clear. HEART: S1 and S2 regular. EXTREMITIES: No edema. LABORATORY DATA: Today's hemoglobin, hematocrit, white count and platelet count are within normal limit. Today's SMA-7 is within normal limits except for glucose of 112 and BUN of 23. ASSESSMENT: 1. Dilated cardiomyopathy. 2. Ethanol abuse. 3. Depression. 4. Coronary artery disease status post coronary artery stenting in the past. 5. Noncompliance. 6. History of left ventricular apical thrombus. 7. Chronic obstructive lung disease. RECOMMENDATIONS: Continue Aldactone, Cozaar, doxycycline, aspirin, Eliquis, oral Lasix, Librium, Lopressor and thiamine. Tyrell Cannon MD
[2017-06-13 18:04] VITALS: PULSE 85; TEMP 98.1
[2017-06-13 18:07] VITALS: BP 112/98
--- NOTE | 2017-06-13 23:52 | PN ---
DATE: 06/13/2017 SUBJECTIVE: Patient is in bed. He was seen early this morning in room 577, bed 2. No fevers. No chills. No nausea. No vomiting. No chest pain. PHYSICAL EXAMINATION: VITAL SIGNS: Temperature 98, blood pressure is 110/50, respiratory rate 20, heart rate 84. HEENT: Unremarkable. NECK: Supple. LUNGS: Decreased breath sounds. HEART: Normal S1 and S2. ABDOMEN: Soft, nontender. No organomegaly. No rebound. No guarding. No mass. LABORATORY DATA: Reveals a white count of 10,000, hemoglobin of 14, platelets of 169. BUN 23, creatinine 0.9. Sputum culture reveals yeast and urine culture has no growth. Nares, MRSA is not detected. Throat cultures are negative. ASSESSMENT AND PLAN: This is a 56-year-old male, who was seen early this morning in 577, bed 2, comfortable. No fevers, no chills, admitted with systemic inflammatory response syndrome, hypoxic respiratory failure, acute on chronic congestive heart failure, and probably with alcohol withdrawal syndrome, hypertension, chronic obstructive lung disease, coronary artery disease and with status post percutaneous coronary intervention, chronic congestive heart failure, status post automatic implantable cardioverter-defibrillator placement, anxiety, depression. On day #5 of doxycycline, complete 4 to 7 days. Richard Saenz MD
== END 2017-06-13 18:26 | disposition home or self-care (01) | DRG 544 ==
LOC: ED 11:19 → ERH 12:12 → CCU 13:49 → 2RSO 06-10 18:07 → 5RSO 06-11 16:09
PROVIDERS: ADMIT Internal Medicine; ATTEND Hospitalist
PROC: 5A09357 Assistance with Respiratory Ventilation, Less than 24 Consecutive Hours, Continuous Positive Airway Pressure (ICD-10-PCS; principal; 2017-06-08)
DX: I11.0 Hypertensive heart disease with heart failure (principal); J96.91 Respiratory failure, unspecified with hypoxia; R65.11 Systemic inflammatory response syndrome (SIRS) of non-infectious origin with acute organ dysfunction; F10.239 Alcohol dependence with withdrawal, unspecified; J44.1 Chronic obstructive pulmonary disease with (acute) exacerbation; E87.2 Acidosis; I42.0 Dilated cardiomyopathy; I50.23 Acute on chronic systolic (congestive) heart failure; F10.229 Alcohol dependence with intoxication, unspecified; Y90.4 Blood alcohol level of 80-99 mg/100 ml; I25.10 Atherosclerotic heart disease of native coronary artery without angina pectoris; I48.91 Unspecified atrial fibrillation; F32.9 Major depressive disorder, single episode, unspecified; F41.9 Anxiety disorder, unspecified; F17.210 Nicotine dependence, cigarettes, uncomplicated; I25.5 Ischemic cardiomyopathy; E66.9 Obesity, unspecified; Z68.32 Body mass index [BMI] 32.0-32.9, adult; I25.2 Old myocardial infarction; Z95.810 Presence of automatic (implantable) cardiac defibrillator; Z95.5 Presence of coronary angioplasty implant and graft; Z91.14 Patient's other noncompliance with medication regimen; Z79.01 Long term (current) use of anticoagulants; Z59.0 Homelessness